=== PATIENT | female | born 1985 | race Caucasian/White ===

== ENCOUNTER → 2017-10-24 | Outpatient (CLI) | payer OTHER ==
[~2017-10-24] MED LIST: CETICHW4; PROM25TA PR; PRZCUNK
== END | disposition home or self-care (01) ==
LOC: C.PAPS 13:46
PROVIDERS: ATTEND Physician Assistant
DX: Z12.4 Encounter for screening for malignant neoplasm of cervix (principal)

== ENCOUNTER 2021-03-27 21:45 | Observation (INO) ==
[2021-03-27 23:48] LABS: Basophils # (auto) 0.01 K/uL (0-0.2); Basophils % (auto) 0.1 %; Eosinophils # (auto) 0.11 K/uL (0-0.5); Eosinophils % (auto) 0.6 %; Hematocrit (blood only) 38.9 % (37-47); Hemoglobin 13.6 g/dL (12.0-16.0); Immature Granulocytes # (auto) 0.03 K/uL (0.00-0.02); Immature Granulocytes % (auto) 0.2 %; Lymphocytes # (auto) 0.98 K/uL (1.2-3.4); Lymphocytes % (auto) 5.7 %; Mean Corpuscular Hemoglobin 33.3 pg (25-34); Mean Corpuscular Volume 95.1 fL (80-100); Mean Platelet Volume 10.9 fL (7.4-10.4); Monocytes # (auto) 0.81 K/uL (0.11-0.59); Monocytes % (auto) 4.7 %; Neutrophils # (auto) 15.39 K/uL (1.4-6.5); Neutrophils % (auto) 88.7 %; Platelet Count 199 K/uL (130-400); RDW Coefficient of Variation 13.2 % (11.5-14.5); RDW Standard Deviation 45.6 fL (36.4-46.3); Red Blood Count 4.09 M/uL (4.2-5.4); White Blood Count 17.33 K/uL (4.8-10.8)
[2021-03-27 23:53] LABS: Appearance Urine Clear (Clear); Bacteria Urine Automated Negative (Negative); Bilirubin Urine Negative (Negative); Blood Urine 1+ (Negative); Color Urine Yellow; Epithelial Cell Urine Auto 20-30 /lpf (0-5); Glucose Urine UA Negative (Negative); Ketones Urine Negative (Negative); Leukocyte Esterase Urine Negative (Negative); Nitrite Urine Negative (Negative); Protein Urine Negative (Negative); Specific Gravity Urine 1.019 (1.000-1.030); Urobilinogen Urine Negative (Negative)
[2021-03-28 00:07] LABS: Alanine Aminotransferase 16 U/L (12-78); Albumin Level 3.2 gm/dl (3.4-5.0); Aspartate Aminotransferase 12 U/L (15-37); BUN Creatinine Ratio 15.3 (10-20); Blood Urea Nitrogen 8 mg/dl (7-18); Calcium 8.2 mg/dl (8.5-10.1); Carbon Dioxide 26 mmol/L (21-32); Chloride 106 mmol/L (98-107); Est GFR (African American) 145.3 ml/min; Est GFR (Non-African American) 125.4 ml/min; Glucose 98 mg/dl (70-99); Potassium 3.6 mmol/L (3.5-5.1); Sodium 138 mmol/L (136-145)
[2021-03-28 00:10] LABS: Albumin Globulin Ratio 0.9 (0.9-2); Alkaline Phosphatase 50 U/L (45-117); Bilirubin,Total 0.3 mg/dl (0.2-1); Globulin 3.4 gm/dl (2.5-4.0); Total Protein 6.6 gm/dl (6.4-8.2)
[2021-03-28] MEDS ORDERED: LACTATED RINGER'S 1,000 ML IV PRN (01:59)
[2021-03-28] MEDS ORDERED: miSOPROStoL 200 MCG TAB PO SCH (02:00)
--- NOTE | 2021-03-28 02:05 | History & Physical Report ---
Date of Service March 28, 2021 Assessment & Plan (1) IUFD at less than 20 weeks of gestation: Plan: Options for management of 2nd trimester demise were reviewed and included expectant management, cytotec induction, or D&E. The risks of each of these options were discussed at length. She and her are electing to proceed with cytotec administration. 600mg cytotec po every 6 hours until delivery of fetus and placenta She understands that a D&E may still be necessary if all POC does not pass in a timely manner. She may have IV pain meds and epidural analgesia when appropriate. All questions were answered to her and her 's satisfaction at this time. History of Present Illness Chief Complaint: demise at 16 weeks Primary Care Provider: My Garber DO Patient is a 5 yo EDC [birth year] who presents with history of leaking large amounts of fluid followed by a moderate amount of dark blood. She had no symptoms prior to the leaking fluid but then had some vaginal achiness afterward. She presented to the ER for further evaluation. Ultrasound reveals a 16 week demise with no amniotic fluid present and possible LORY.Currently she is experiencing pelvic menstrual type cramping. She denies any fever or chills. No urinary symptoms. Up to this point, the had been progressing normally. cf DNA was done at was low risk female. Of note, she was receivign iron infusions for anemia due to menorrhagia. Hemglobin tonight was 13.6. Allergies Allergy/AdvReac Type Severity Reaction Status Date / Time shellfish derived Allergy Unknown Unknown Verified 03/28/21 02:07 No Known Drug Allergies Allergy Unknown Verified 03/28/21 02:07 morphine AdvReac Unknown paranoia Verified 03/28/21 02:07 Home Medications Medication Instructions Recorded Confirmed Type bupropion HCl 150 mg 24 hr tablet, 150 mg PO DAILY 11/08/19 03/08/21 History extended release cetirizine 10 mg tablet 10 mg PO DAILY 11/08/19 03/08/21 History iron infusion .ROUTE 01/31/21 03/08/21 History prenat.vits,hollie,[id number] 1 tab PO DAILY 01/31/21 03/08/21 History venlafaxine 37.5 mg tablet 37.5 mg PO DAILY 01/31/21 03/08/21 History Patient History Medical History Depression History of menorrhagia History of seizure History of varicella Hives Iron deficiency Surgical History History of tooth extraction Family History Grandfather (Maternal) Alcohol abuse Father Anxiety with depression Dyslipidemia Hypertension Diabetes Mother Anxiety with depression Anemia Uterine neoplasm, Onset Age: 38 Malignant melanoma of skin Pulmonary embolism Grandmother (Paternal) Osteoporosis Sister History of ovarian cyst Uncle Diabetes uncle Denies family history of Ovarian cancer Breast cancer Colorectal cancer Social History Smoking Status: Never smoker Preferred Language: Chinese marital status: marital status details: Salinas Ames(45) [phone] Current Living Situation: Spouse Current Living Situation Comment: lives with spouse, dog, birds current occupational status: employed 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 Feels Safe at Home: Yes Review of Systems All systems reviewed & are unremarkable except as noted in HPI & below Physical Exam Constitutional: WD/WN, vitals as above Respiratory: normal respiratory effort, lungs clear to auscultation Cardiovascular: RRR, no murmur, no edema Gastrointestinal (Abdomen): normal bowel sounds, soft, nontender, no hepatosplenomegaly (15 week fundus mildly tender to palpation) Psychiatric: A+Ox3, euthymic affect Genitourinary: OB Exam Abdomen: + fundal height (16 weeks-mildly tender) and + heart tones (absent) Manual OB Exam: + cervical dilation (closed), + cervical effacement (long) and + station (GIBSON starting to develop) Results & Data ([facility] [place]) Vital Signs (Past 12 Hours) Vital Signs Temp Pulse Pulse Resp BP BP Pulse Ox 03/28/21 01:14 93 H 115/69 100 03/27/21 23:53 89 89 110/63 100 03/27/21 21:59 98.4 F 89 19 117/69 100 Code Status & VTE Plan VTE Prophylaxis Plan VTE Prophylaxis will be ordered: No Coding Level of Care Code INT OBSERVATION CARE 50M LVL 2 Diagnoses IUFD at less than 20 weeks of gestation O02.1
[2021-03-28] MEDS: BUTORPHANOL TARTRATE 1 MG/ML VIAL IV PRN ×2 (03:33→08:06)
[2021-03-28] MEDS ORDERED: ONDANSETRON INJ 2 MG/ML 2 ML VIAL IV PRN (05:26)
[2021-03-28] MEDS ORDERED: ONDANSETRON INJ 2 MG/ML 2 ML VIAL ONE (05:29)
--- NOTE | 2021-03-28 06:26 | Emergency Department Note ---
History of Present Illness General Chief complaint: Vaginal Bleeding Stated complaint: 15 WKS , CRAMPING & BLEEDING Time Seen by Provider: 03/27/21 23:01 Source: patient Mode of arrival: ambulatory Limitations: no limitations History of Present Illness Maximum Pain Intensity: 4 This patient is a 35-year-old G1,P0 female who presents to the emergency department for evaluation of cramping and bleeding. The patient states that she is currently approximately 15 weeks . She states that she was driving home today when she felt a gush of fluid come out of her vagina. She was not sure if it was urine or discharge. She went to the bathroom and noticed some drops of pink blood. She states that 30 minutes later, she developed heavier bleeding with some cramping in the lower abdomen. She had had some back pain earlier in the day. She has been following with [facility] DIRECTOR OF VITAL STATISTICS and states that she has had an uneventful so far. She states the bleeding has slowed at this time. She rates her current discomfort a 6/10 and states the pain is similar to menstrual cramping. Patient denies prior pregnancies. Home Medications Medication Instructions Recorded Confirmed Type cetirizine 10 mg tablet 10 mg PO DAILY 11/08/19 03/31/21 History prenat.vits,hollie,[id number] 1 tab PO DAILY 01/31/21 03/31/21 History venlafaxine 37.5 mg tablet 37.5 mg PO DAILY 01/31/21 03/31/21 History bupropion HCl 150 mg 24 hr tablet, 75 mg PO QAM 03/28/21 03/31/21 History extended release (Wellbutrin XL) Allergies Allergy/AdvReac Type Severity Reaction Status Date / Time shellfish derived Allergy Unknown Unknown Verified 03/28/21 02:07 morphine AdvReac Unknown paranoia Verified 03/28/21 02:07 Past Med/Surg History Medical History Depression History of menorrhagia History of seizure History of varicella Hives Iron deficiency Surgical History History of tooth extraction Family History Grandfather (Maternal) Alcohol abuse Father Anxiety with depression Dyslipidemia Hypertension Diabetes Mother Anxiety with depression Anemia Uterine neoplasm, Onset Age: 38 Malignant melanoma of skin Pulmonary embolism Grandmother (Paternal) Osteoporosis Sister History of ovarian cyst Uncle Diabetes uncle Denies family history of Ovarian cancer Breast cancer Colorectal cancer Social History Smoking Status: Never smoker Second Hand Exposure: Yes ( smokes); Hx Alcohol Use: No Hx Substance Use: No Preferred Language: Irish Communication Ability: Effective Wrapper Opener Required: No Beliefs That Will Affect Care: None marital status: marital status details: Salinas Ames(45) [phone] Current Living Situation: Spouse Current Living Situation Comment: Lives with and 1 dog current occupational status: employed current occupation: [employer] teacher Feels Safe at Home: Yes Assistive Devices: None Review of Systems A total of 10 systems reviewed and were otherwise negative Physical Exam Vital Signs Vital Signs - 24 hr 03/27/21 21:59 03/27/21 23:53 03/28/21 01:14 Temperature 36.9 C Temperature Source Temporal Artery Scan Pulse Rate 89 89 Pulse Rate [Finger] 89 93 H Pulse Rhythm Regular Respiratory Rate 19 Respiratory Effort / Characteristics Non-Labored Spontaneous Respiratory Depth Normal Blood Pressure 117/69 Blood Pressure [Right Arm] 110/63 115/69 Blood Pressure Mean 85 Blood Pressure Mean [Right Arm] 78 84 Blood Pressure Position [Right Arm] Lying Pulse Oximetry 100 100 100 Oxygen Delivery Method Room Air Room Air Room Air Sepsis Recent Fever Within 48 Hours No Sepsis New/Unexplained Change in Mental Status N/A Sepsis Action Taken by Nursing No Action Required VITALS: Vitals are noted on the nurse's note and reviewed by myself. GENERAL: This is a 35-year-old female, in no acute distress, well-developed well-nourished. SKIN: The skin was without rashes. EARS: External auditory canals clear, tympanic membranes pearly roche without erythema or effusion bilaterally. EYES: Pupils equal round and reactive to light and accommodation. NOSE: Patent, turbinates without inflammation or discharge. MOUTH: Mucous membranes moist. Tonsils are not enlarged. Pharynx without e rythema or exudate. NECK: Supple without nuchal rigidity. No lymphadenopathy. HEART: Regular rate and rhythm without murmurs gallops or rubs. LUNGS: Clear to auscultation bilaterally without wheezes, rales or rhonchi. ABDOMEN: Positive bowel sounds x 4. Soft, mild tenderness to palpation across lower abdomen. No guarding or rebound tenderness. NEURO: Patient was alert and oriented to person place and time. Course Consultations Consultation #1: Dr. Caron RAJAN DIRECTOR OF VITAL STATISTICS Administered Medications Discontinued Medications Bupropion HCl (Bupropion Hcl 75 Mg Tablet) 75 mg PO BID LORY Stop: 04/27/21 08:59 Last Admin: 03/28/21 09:57 Dose: 75 mg Documented by: [id number] Butorphanol Tartrate (Butorphanol Tartrate 1 Mg/Ml Vial) 1 mg IV Q2HWA PRN PRN Reason: Pain Stop: 04/27/21 01:58 Last Admin: 03/28/21 08:06 Dose: 1 mg Documented by: [id number] Cosigned by: [id number] Admin: 03/28/21 03:33 Dose: 1 mg Documented by: [id number] Cosigned by: [id number] Butorphanol Tartrate (Butorphanol Tartrate 1 Mg/Ml Vial) 1 mg IV Q4H PRN PRN Reason: Pain Stop: 04/27/21 11:12 Last Admin: 03/28/21 11:27 Dose: 1 mg Documented by: [id number] Cosigned by: [id number] Butorphanol Tartrate (Butorphanol Tartrate 1 Mg/Ml Vial) Confirm Administered Dose 1 mg .ROUTE .STK-MED ONE Stop: 03/28/21 11:17 Last Admin: 03/28/21 11:44 Dose: Not Given Documented by: [id number] Cetirizine HCl (Cetirizine Hcl 10 Mg Tablet) 10 mg PO DAILY LORY Stop: 04/27/21 09:52 Last Admin: 03/28/21 11:19 Dose: 10 mg Documented by: [id number] Lactated Ringer's (Lr) 1,000 mls @ 125 mls/hr IV .Q8H PRN; Protocol PRN Reason: L&D Protocol Stop: 04/27/21 01:58 Last Admin: 03/28/21 02:55 Dose: 125 mls/hr Documented by: [id number] Ibuprofen (Ibuprofen 600 Mg Tab) Confirm Administered Dose 600 mg PO .STK-MED O NE Stop: 03/28/21 09:53 Last Admin: 03/28/21 09:54 Dose: 600 mg Documented by: [id number] Misoprostol (Misoprostol 200 Mcg Tab) 600 mcg PO Q6H [facility] Stop: 04/27/21 01:59 Last Admin: 03/28/21 03:29 Dose: 600 mcg Documented by: [id number] Misoprostol (Misoprostol 200 Mcg Tab) 600 mcg PO NOW STA Stop: 03/28/21 11:14 Last Admin: 03/28/21 11:19 Dose: 600 mcg Documented by: [id number] Misoprostol (Misoprostol 200 Mcg Tab) Confirm Administered Dose 600 mcg .ROUTE .STK-MED ONE Stop: 03/28/21 11:18 Last Admin: 03/28/21 11:44 Dose: Not Given Documented by: [id number] Ondansetron HCl (Ondansetron Inj 2 Mg/Ml 2 Ml Vial) 4 mg IV Q6H PRN PRN Reason: nausea Stop: 04/27/21 05:29 Last Admin: 03/28/21 05:31 Dose: 4 mg Documented by: [id number] Ondansetron HCl (Ondansetron Inj 2 Mg/Ml 2 Ml Vial) Confirm Administered Dose 4 mg .ROUTE .STK-MED ONE Stop: 03/28/21 05:30 Last Admin: 03/28/21 15:34 Dose: Not Given Documented by: [id number] Oxytocin (Oxytocin 30 Units/500ml Nss) Confirm Administered Dose 30 units .ROUTE .STK-MED ONE Stop: 03/28/21 09:25 Last Admin: 03/28/21 15:34 Dose: Not Given Documented by: [id number] Venlafaxine HCl (Venlafaxine Hcl Xr 37.5 Mg Capxr) 37.5 mg PO DAILY [facility] Stop: 04/27/21 08:59 Last Admin: 03/28/21 09:56 Dose: 37.5 mg Documented by: [id number] Medical Decision Making Differential Diagnosis Differential diagnosis includes spontaneous , threatened , subchorionic hematoma, ectopic , implantation bleeding, placenta previa, placental abruption, malignancy/mass, bleeding disorder, among others. Home Medications Current Medication List: was personally reviewed by me Laboratory Data Attestation: I reviewed the patient's lab results. Result diagrams: 03/28/21 15:51 03/27/21 23:28 Lab Results 07/18/21 07/18/21 07/18/21 Range/Units 23:28 23:28 23:37 WBC 17.33 H (4.8-10.8) K/uL RBC 4.09 L (4.2-5.4) M/uL Hgb 13.6 (12.0-16.0) g/dL Hct 38.9 (37-47) % MCV 95.1 (80-100) fL MCH 33.3 (25-34) pg MCHC 35.0 (32-36) g/dL RDW Std Deviation 45.6 (36.4-46.3) fL RDW Coeff of Kieran 13.2 (11.5-14.5) % Plt Count 199 (130-400) K/uL MPV 10.9 H (7.4-10.4) fL Immature Gran % (Auto) 0.2 % Neut % (Auto) 88.7 % Lymph % (Auto) 5.7 % [place] % (Auto) 4.7 % Eos % (Auto) 0.6 % Baso % (Auto) 0.1 % Neut # (Auto) 15.39 H (1.4-6.5) K/uL Lymph # (Auto) 0.98 L (1.2-3.4) K/uL [place] # (Auto) 0.81 H (0.11-0.59) K/uL Eos # (Auto) 0.11 (0-0.5) K/uL Baso # (Auto) 0.01 (0-0.2) K/uL Immature Gran # (Auto) 0.03 H (0.00-0.02) K/uL Sodium 138 (136-145) mmol/L Potassium 3.6 (3.5-5.1) mmol/L Chloride 106 (98-107) mmol/L Carbon Dioxide 26 (21-32) mmol/L Anion Gap 6.0 (3-11) BUN 8 (7-18) mg/dl Creatinine 0.50 L (0.6-1.2) mg/dl Est Cr Clr Drug Dosing Not Reportable Est GFR ( Amer) 145.3 ml/min Est GFR (Non-Af Amer) 125.4 ml/min BUN/Creatinine Ratio 15.3 (10-20) Glucose 98 (70-99) mg/dl Calcium 8.2 L (8.5-10.1) mg/dl Total Bilirubin 0.3 (0.2-1) mg/dl AST 12 L (15-37) U/L ALT 16 (12-78) U/L Alkaline Phosphatase 50 (45-117) U/L Total Protein 6.6 (6.4-8.2) gm/dl Albumin 3.2 L (3.4-5.0) gm/dl Globulin 3.4 (2.5-4.0) gm/dl Albumin/Globulin Ratio 0.9 (0.9-2) Urine Color Yellow Urine Appearance Clear (Clear) Urine pH 5.0 (4.5-7.5) Ur Specific [place] 1.019 (1.000-1.030) Urine Protein Negative (Negative) Urine Glucose (UA) Negative (Negative) Urine Ketones Negative (Negative) Urine Blood 1+ H (Negative) Urine Nitrite Negative (Negative) Urine Bilirubin Negative (Negative) Urine Urobilinogen Negative (Negative) Ur Leukocyte Esterase Negative (Negative) Urine WBC (Auto) 1-5 (0-5) /hpf Urine RBC (Auto) 5-10 H (0-4) /hpf U Hyaline Cast (Auto) 5-10 H (0-5) /lpf U Epithel Cells (Auto) 20-30 H (0-5) /lpf Urine Bacteria (Auto) Negative (Negative) Blood Type 03/27/21 Range/Units 23:50 WBC (4.8-10.8) K/uL RBC (4.2-5.4) M/uL Hgb (12.0-16.0) g/dL Hct (37-47) % MCV (80-100) fL MCH (25-34) pg MCHC (32-36) g/dL RDW Std Deviation (36.4-46.3) fL RDW Coeff of Kieran (11.5-14.5) % Plt Count (130-400) K/uL MPV (7.4-10.4) fL Immature Gran % (Auto) % Neut % (Auto) % Lymph % (Auto) % [place] % (Auto) % Eos % (Auto) % Baso % (Auto) % Neut # (Auto) (1.4-6.5) K/uL Lymph # (Auto) (1.2-3.4) K/uL [place] # (Auto) (0.11-0.59) K/uL Eos # (Auto) (0-0.5) K/uL Baso # (Auto) (0-0.2) K/uL Immature Gran # (Auto) (0.00-0.02) K/uL Sodium (136-145) mmol/L Potassium (3.5-5.1) mmol/L Chloride (98-107) mmol/L Carbon Dioxide (21-32) mmol/L Anion Gap (3-11) BUN (7-18) mg/dl Creatinine (0.6-1.2) mg/dl Est Cr Clr Drug Dosing Est GFR ( Amer) ml/min Est GFR (Non-Af Amer) ml/min BUN/Creatinine Ratio (10-20) Glucose (70-99) mg/dl Calcium (8.5-10.1) mg/dl Total Bilirubin (0.2-1) mg/dl AST (15-37) U/L ALT (12-78) U/L Alkaline Phosphatase (45-117) U/L Total Protein (6.4-8.2) gm/dl Albumin (3.4-5.0) gm/dl Globulin (2.5-4.0) gm/dl Albumin/Globulin Ratio (0.9-2) Urine Color Urine Appearance (Clear) Urine pH (4.5-7.5) Ur Specific [place] (1.000-1.030) Urine Protein (Negative) Urine Glucose (UA) (Negative) Urine Ketones (Negative) Urine Blood (Negative) Urine Nitrite (Negative) Urine Bilirubin (Negative) Urine Urobilinogen (Negative) Ur Leukocyte Esterase (Negative) Urine WBC (Auto) (0-5) /hpf Urine RBC (Auto) (0-4) /hpf U Hyaline Cast (Auto) (0-5) /lpf U Epithel Cells (Auto) (0-5) /lpf Urine Bacteria (Auto) (Negative) Blood Type A Positive Imaging Data Attestation: I personally reviewed and interpreted this imaging study as follows: Radiologist's Impression: US OB 2nd TRIMESTER: Single intrauterine gestation without heart tones consistent with demise. Estimated gestational age 15 weeks 6 days. The cervix is open. Please note there is a possible abruption versus subchorionic hemorrhage. Radiologist: Stephanie Sanz MD MDM Narrative This patient is a 35-year-old female who presents to the emergency department for evaluation of vaginal bleeding and a 15-week . Patient hemodynamically stable, she did have some cramping but no significant pain. An ultrasound showed demise with a possible placental abruption. I did inform the patient of these results. I spoke with the on-call DIRECTOR OF VITAL STATISTICS, Dr. Reardon, who admitted the patient to the OB service for further care. Impression & Plan demise, less than 22 weeks Discharge Plan Visit Data Chief Complaint: Vaginal Bleeding Stated Complaint: 15 WKS , CRAMPING & BLEEDING ED Provider: Emerson Cantu ED Midlevel Provider: Sherlyn Pichardo Discharge Problem: demise, less than 22 weeks Patient Disposition: Admitted As Inpatient Discharge Instructions Interventions: ED Discharge Assessment Last Done: 03/28/21 02:11
[2021-03-28] MEDS ORDERED: buPROPion HCl 75 MG TABLET PO SCH (09:00)
[2021-03-28] MEDS ORDERED: VENLAFAXINE HCL XR 37.5 MG CAPXR PO SCH (09:00)
[2021-03-28] MEDS ORDERED: buPROPion XL 150 MG TABCR PO SCH ×2 (09:00→09:53)
[2021-03-28] MEDS ORDERED: OXYTOCIN 30 UNITS/500ML NSS ONE (09:24)
--- NOTE | 2021-03-28 09:39 | Delivery Summary ---
Vaginal Delivery Summary Date of Service March 28, 2021 Vaginal Delivery Summary Vaginal Delivery Summary: Pre-delivery diagnoses: 35yo @ 15 11/14, IUFD Post-delivery diagnoses: same Procedure: spontaneous vaginal delivery Surgeon: Denae Hooks DO Complications: none Findings: Nonviable . No movement. Exterior intestines - gastroschisis? Placenta appears intact. Estimated blood loss: 100ml Description of delivery: I was called to the patient's room, as patient had just felt sudden pressure and the baby had delivered into the bed. I walked in to find the baby placed on the bed, and I placed umbilical cord clamps and cut the cord. A few minutes later, the patient again felt increased pressure. Gentle vaginal exam revealed placenta working its way through cervix and mostly in the vagina. Gentle traction on the placenta allowed it to deliver. It appeared intact. No further bleeding from the vagina. Pitocin IV given to ensure continued hemostasis. Perineum inspected and no obvious lacerations. I discussed the above findings with patient and FOB. Offered gross exam in pathology, autopsy, genetic testing. Patient and FOB would like to send baby for gross examination at pathology. The mother is recovering in stable and good condition in the room. Denae Hooks DO [facility] [place]
--- NOTE | 2021-03-28 09:42 | Ultrasound Report ---
ULTRASOUND LIMITED CLINICAL HISTORY: Vaginal bleeding. 15 weeks . COMPARISON STUDY: No priors. FINDINGS: Real-time grayscale and color Doppler sonography of the pelvis is performed to evaluate the gravid uterus. There is a single intrauterine gestation identified. No cardiac activity is identifie d. There is oligohydramnios, with a small pocket of amniotic fluid measuring 1.7 cm. The cervix appea rs open and measures 3.3 cm in length. The placenta is anterior. A complex heterogeneous fluid collec tion extending posterior to the placenta measures approximately 7.5 x 4.5 x 3.5 cm. The head circumfe rence measures 11.01 cm, corresponding to estimated age of 15 weeks 2 days. IMPRESSION: 1. There is a single uterine gestation with an estimated age of 15 weeks 2 days by head circumference measurement. 2. No cardiac activity is identified indicating demise. 3. Oligohydramnios. 4. There is a complex nonvascular fluid collection within the superior uterus extending posterior to the placenta. This likely represents blood products. Subchronic hemorrhage versus abruption could hav e this appearance and clinical correlation will be required. Dictated: 03/28/2021 9:07 AM Transcribed: 03/28/2021 9:28 AM Brisa [id number] [email or web address] Electronically signed by: Russ Gamez M.D. 03/28/2021 9:40 AM
[2021-03-28] MEDS ORDERED: IBUPROFEN 600 MG TAB PO ONE (09:52)
[2021-03-28] MEDS ORDERED: OXYTOCIN 30 UNITS/500 ML BAG IV PRN (09:53)
[2021-03-28] MEDS ORDERED: HYDROCORTISONE ACETATE 25 MG SUPP PR PRN (09:53)
[2021-03-28] MEDS ORDERED: CETIRIZINE HCL 10 MG TABLET PO SCH (09:53)
[2021-03-28] MEDS ORDERED: SUPERCREAM 0.870% 15 GM JAR EXT PRN (09:53)
[2021-03-28] MEDS ORDERED: DIPHTHERIA/TETANUS/PERTUSSIS 0.5 ML SYR/VIAL IM ONE (09:53)
[2021-03-28] MEDS ORDERED: IBUPROFEN 600 MG TAB PO PRN (09:53)
[2021-03-28] MEDS ORDERED: oxyCODONE/ACETAMINOPHEN 5mg/325mg TAB PO PRN (09:53)
[2021-03-28] MEDS ORDERED: ACETAMINOPHEN 325 MG TAB PO PRN (09:53)
[2021-03-28] MEDS ORDERED: bisacodyL 10 MG SUPP PR PRN (09:53)
[2021-03-28] MEDS ORDERED: BENZOCAINE 20% AER SPR 82.5 GM CAN EXT PRN (09:53)
[2021-03-28] MEDS ORDERED: BUTORPHANOL TARTRATE 1 MG/ML VIAL IV PRN (11:13)
[2021-03-28] MEDS ORDERED: miSOPROStoL 200 MCG TAB PO STA (11:13)
[2021-03-28] MEDS ORDERED: BUTORPHANOL TARTRATE 1 MG/ML VIAL ONE (11:16)
[2021-03-28] MEDS ORDERED: miSOPROStoL 200 MCG TAB ONE (11:17)
--- NOTE | 2021-03-28 11:18 | Obstetrical Progress Note ---
Date of Service March 28, 2021 Assessment & Plan Admission and Anticipated Discharge Date Admission Date: March 28, 2021 Subjective Called to room by RN. During routine RN exam, patient had passed another mass of tissue - looks placental. I gently teased this out of vagina. EBL during this procedure approx 150cc in clots. No appearance of active bleeding after manual extraction of tissue/clots from vagina. Cervix during exam was approx 1cm dilated. Some clot in os, no further palpable tissue. Will give patient an additional dose of cytotec to encourage continued contraction of uterus for both hemostasis and to express any further clot/tissue. Discussed that if patient has any further bleeding or it appears that there is further tissue expressing, may need to move to D&C. Patient would like to avoid surgery if at all possible. I think, given stable vitals and no active bleeding per vagina, that this is reasonable to continue to monitor. In addition to PO cytotec, will also give 1mg IV stadol. Results & Data ([facility]) Vital Signs (Past 12 Hours) Vital Signs Temp Pulse Pulse Resp BP BP Pulse Ox 03/28/21 11:07 85 108/64 03/28/21 10:53 69 104/57 L 03/28/21 10:38 78 106/63 03/28/21 10:23 81 101/57 L 03/28/21 10:08 82 113/66 03/28/21 09:53 73 107/65 03/28/21 09:38 74 108/64 03/28/21 09:23 78 101/60 03/28/21 09:21 86 100/56 L 03/28/21 08:15 85 119/68 03/28/21 07:13 36.8 C 87 20 111/57 L 03/28/21 05:35 87 102/55 L 03/28/21 05:00 36.8 C 18 03/28/21 03:02 37.7 C H 93 H 16 117/59 L 03/28/21 02:49 93 H 117/59 L 03/28/21 02:05 97 H 91/61 L 100 03/28/21 01:14 93 H 115/69 100 03/27/21 23:53 89 89 110/63 100 PG Care Time/CCT Total # of Minutes Spent Total Time Spent with Patient: Total time spent is greater than 50% in coordination of care (as documented) at patient's floor/unit and/or counseling patient: Coding Level of Care Code None
[2021-03-28 16:11] LABS: Hematocrit (blood only) 35.2 % (37-47); Mean Corpuscular Hemoglobin 32.3 pg (25-34); Mean Corpuscular Volume 94.6 fL (80-100); Mean Platelet Volume 11.4 fL (7.4-10.4); Platelet Count 193 K/uL (130-400); RDW Coefficient of Variation 13.5 % (11.5-14.5); RDW Standard Deviation 46.6 fL (36.4-46.3); Red Blood Count 3.72 M/uL (4.2-5.4); White Blood Count 13.43 K/uL (4.8-10.8)
[2021-03-28 16:19] LABS: Mean Corpuscular Hgb Conc 34.1 g/dL (32-36)
[2021-03-28] MEDS ORDERED: DOCUSATE SODIUM 100 MG CAP PO SCH (21:00)
[2021-03-29] MEDS ORDERED: buPROPion HCl 75 MG TABLET PO SCH (09:00)
[2021-03-29] MEDS ORDERED: bisacodyL 5 MG TABEC PO SCH (20:00)
--- NOTE | 2021-04-04 08:54 | Discharge Summary ---
Date of Service April 04, 2021 Admission HPI Per Admitting Provider Patient is a 5 yo EDC [birth year] who presents with history of leaking large amounts of fluid followed by a moderate amount of dark blood. She had no symptoms prior to the leaking fluid but then had some vaginal achiness afterward. She presented to the ER for further evaluation. Ultrasound reveals a 16 week demise with no amniotic fluid present and possible LORY.Currently she is experiencing pelvic menstrual type cramping. She denies any fever or chills. No urinary symptoms. Up to this point, the had been progressing normally. cf DNA was done at was low risk female. Of note, she was receivign iron infusions for anemia due to menorrhagia. Hemglobin tonight was 13.6. Discharge Data Consultations 03/28/21 01:29 Consult Obstetrics Stat 03/28/21 02:04 Consult Anesthesiology Stat Procedures Performed spontaneous vaginal delivery Hospital Course (1) IUFD at less than 20 weeks of gestation: Options for management of 2nd trimester demise were reviewed and included expectant management, cytotec induction, or D&E. The risks of each of these options were discussed at length. She and her are electing to proceed with cytotec administration. 600mg cytotec po every 6 hours until delivery of fetus and placenta She understands that a D&E may still be necessary if all POC does not pass in a timely manner. She may have IV pain meds and epidural analgesia when appropriate. All questions were answered to her and her 's satisfaction at this time. Pt was admitted, induced with cytotec, delivered, discharged home. Followup in office in 2 weeks. Coding Level of Care Code None Diagnoses IUFD at less than 20 weeks of gestation O02.1
== END 2021-03-28 19:00 | disposition home or self-care (01) ==
LOC: ED 21:45 → 4S1 03-28 01:59 → INTOOBSV 03-28 01:59 → 4S1 03-28 02:11

== ENCOUNTER 2023-11-14 12:23 | Inpatient (IN) ==
--- NOTE | 2023-11-14 12:58 | Emergency Department Note ---
Impression & Plan Depression with anxiety ED Provider Note NAME: EVA PAYNE AGE: 37 SEX: F : 1985 ARRIVES VIA: Walk-In INFORMANT: Patient, the patient's family ED PROVIDER(S): Gus Eagle DO CHIEF COMPLAINT: Mental health evaluation HPI: The patient is a 37-year-old female who presented to the emergency department for mental health evaluation. The patient has been under significant stressors recently. She has been having her own issues with anxiety and depression. She is been having trouble getting and has had miscarriages over the last year. Her significant other recently lost his job because of taking time off for medical reason. The patient has been having some changes to her outpatient medication regimen. She is also been having problems with anemia and getting iron transfusions. Patient denies having any vaginal bleeding. She did have a history of heavy bleeding at 1 time but she had polyps removed from her uterus and now she no longer experiences this. The patient denies having any fever or cough. The patient denies any recent trauma. She denies any suicidal ideation. ROS: See above HPI for pertinent positives & negatives. A total of 10 systems reviewed and were otherwise negative. PAST MEDICAL HISTORY: See Below PAST SURGICAL HISTORY: See Below FAMILY HISTORY: See Below SOCIAL HISTORY: See Below HOME MEDICATIONS: See Below ALLERGIES: See Below VITALS: See Below PHYSICAL EXAMINATION: GENERAL: The patient is awake and alert. She is guarded. EYES: The conjunctivae are clear. The pupils are round and reactive. EARS, NOSE, MOUTH AND THROAT: The nose is without any evidence of any deformity. NECK: The neck is nontender and supple. RESPIRATORY: Normal respiratory effort is noted there is no evidence of wheezing rhonchi or rales CARDIOVASCULAR: Regular rate and rhythm noted there no murmurs rubs or gallops normal S1 normal S2. GASTROINTESTINAL: The abdomen is soft. Abdomen is nontender. MUSCULOSKELETAL/EXTREMITIES: There is no evidence of gross deformity full range of motion is noted in the hips and shoulders. SKIN: There is no obvious evidence of any rash. There are no petechiae, pallor or cyanosis noted. NEUROLOGIC: Patient is awake alert and oriented x3 strength is symmetric patellar reflexes are 2+ bilaterally PSYCH: The patient makes poor eye contact mostly evaluation. Her affect is flat. She is currently denying any suicidal ideation. MEDICAL DECISION MAKING: The patient is a 37-year-old female who presented to the emergency department for a mental health evaluation. The patient has a history of mental health issues in the past. She has had significant stressors recently. She presented to the emergency department for further evaluation. I discussed patient's laboratory results with her. She was medically cleared in the emergency department. I discussed the [facility]'s [facility]. She was felt to be a good candidate for inpatient management. She was referred to 3 S. and ultimately was excepted on 3 S. The patient was agreeable to inpatient management. The 302 was signed by myself. Triage Nursing notes reviewed. Prior medical records reviewed Vital Signs: reviewed and remarkable for no significant abnormalities Differential diagnosis: Mood disorder, infection, hypoglycemia, electrolyte abnormalities, cardiac sources, intracerebral event, toxicologic, trauma, neurologic, as well as other pathologies. ER treatment provided: See below Diagnostics interpreted by me: ECG: none Laboratory studies: As stated above and show below. Imaging studies: See below. Radiographic imaging was reviewed by myself Consultation(s): I discussed the patient's laboratory and radiographic studies with the [facility]. Past Med/Surg History Medical History Bruxism Anxiety and depression History of febrile seizure During childhood- only one episode- no further issues since that time Iron deficiency hx iron infusions History of menorrhagia Surgical History S/P dilation and curettage History of wisdom tooth extraction Family History Grandfather (Maternal) Alcohol abuse Father Anxiety with depression Dyslipidemia Hypertension Diabetes Mother Anxiety with depression Anemia Uterine neoplasm, Onset Age: 38 Malignant melanoma of skin Pulmonary embolism Grandmother (Paternal) Osteoporosis Sister History of ovarian cyst Uncle Diabetes uncle Denies family history of Ovarian cancer Breast cancer Colorectal cancer Social History Smoking Status: Never smoker Second Hand Exposure: Yes ( smokes); Do You Dip or Chew Tobacco: No; Hx Alcohol Use: No Hx Substance Use: No Preferred Language: Iraqi Communication Ability: Effective Clinical Ob Required: No Beliefs That Will Affect Care: None marital status: marital status details: [place]es(45) [phone] Current Living Situation: Spouse Current Living Situation Comment: Lives with and 1 dog current occupational status: employed 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 Feels Safe at Home: Yes Gender Identity: Female Assistive Devices: None Allergies Allergies Allergy/AdvReac Type Severity Reaction Status Date / Time shellfish derived Allergy Unknown Unknown Verified 08/15/23 10:32 morphine AdvReac Unknown paranoia Verified 08/15/23 10:32 Home Meds Home Medications Medication Instructions Recorded Confirmed venlafaxine 75 mg capsule,extended 150 mg PO QAM 04/05/22 07/30/23 release 24 hr (Effexor XR) cetirizine 10 mg capsule (Zyrtec) 10 mg PO DAILY PRN Allergy Symptoms 10/13/22 07/30/23 prenat.vits,hollie,bqg-uwxt-fdyzg 1 tab PO QAM 10/13/22 07/30/23 folic acid 1 mg tablet 1 mg PO QAM 02/18/23 07/30/23 ferrous sulfate 325 mg (65 mg 325 mg PO QAM 07/23/23 07/30/23 iron) tablet (iron) clomiphene citrate 50 mg tablet 50 mg PO DAILY 08/15/23 08/15/23 (Clomid) Results & Data (ED) Vital Signs Vital Signs - 24 hr 11/14/23 12:32 Temperature 36.6 C Temperature Source Temporal Artery Scan Pulse Rate 105 H Pulse Rhythm Regular Pulse Strength Normal Respiratory Rate 20 Respiratory Effort / Characteristics Non-Labored Spontaneous Respiratory Depth Normal Blood Pressure 107/73 Blood Pressure Mean 84 Blood Pressure Position Sitting Pulse Oximetry 97 Oxygen Delivery Method Room Air Sepsis Recent Fever Within 48 Hours No Sepsis New/Unexplained Change in Mental Status N/A Sepsis Action Taken by Nursing No Action Required Home Medications Current Medication List: was personally reviewed by me Laboratory Data Attestation: I reviewed the patient's lab results. 11/14/23 13:16 11/14/23 13:16 Lab Results 11/14/23 11/14/23 Range/Units 12:44 13:16 WBC 7.00 (4.8-10.8) K/ul RBC 4.66 (4.20-5.40) M/uL Hgb 14.4 (12.0-16.0) g/dl Hct 42.6 (37.0-47.0) % MCV 91.4 (80.0-100.0) fL MCH 30.9 (25.0-34.0) pg MCHC 33.8 (32.0-36.0) g/dL RDW Std Deviation 44.7 (36.4-46.3) fL RDW Coeff of Kieran 13.3 (11.5-14.5) % Plt Count 374 (130-400) K/uL MPV 12.0 (9.4-12.4) fL Immature Gran % (Auto) 0.3 % Neut % (Auto) 69.9 % Lymph % (Auto) 20.9 % Hughes % (Auto) 8.0 % Eos % (Auto) 0.6 % Baso % (Auto) 0.3 % Neut # (Auto) 4.90 (1.40-6.50) K/uL Lymph # (Auto) 1.46 (1.20-3.40) K/uL Hughes # (Auto) 0.56 (0.11-0.59) K/uL Eos # (Auto) 0.04 (0.00-0.50) K/uL Baso # (Auto) 0.02 (0.00-0.20) K/uL Immature Gran # (Auto) 0.02 (0.01-0.20) K/uL Sodium 139 (136-145) mmol/L Potassium 3.7 (3.5-5.1) mmol/L Chloride 103 (98-107) mmol/L Carbon Dioxide 29 (21-32) mmol/L Anion Gap 7 (3-11) BUN 11 (6-23) mg/dl Creatinine 0.75 (0.6-1.2) mg/dl Est Cr Clr Drug Dosing 99.9 ml/min Est GFR ( Amer) 118.0 ml/min Est GFR (Non-Af Amer) 101.8 ml/min BUN/Creatinine Ratio 14.7 (10-20) Glucose 89 (70-99(Fasting)) mg/dl Calcium 9.6 (8.6-10.3) mg/dl Total Bilirubin 0.3 (0.2-1.0) mg/dl AST 14 (13-39) U/L ALT 10 (7-52) U/L Alkaline Phosphatase 61 (34-104) U/L Total Protein 7.7 (6.0-8.3) gm/dl Albumin 4.8 (3.4-5.0) gm/dl Globulin 2.9 (2.5-4.0) gm/dl Albumin/Globulin Ratio 1.7 (0.9-2) TSH 1.936 (0.300-4.500) uIu/ml HCG, Qual Negative (Negative) Urine Color Yellow Urine Appearance Clear (Clear) Urine pH 6.0 (4.5-7.5) Ur Specific [place] 1.008 (1.000-1.030) Urine Protein Negative (Negative) Urine Glucose (UA) Negative (Negative) Urine Ketones Negative (Negative) Urine Blood Negative (Negative) Urine Nitrite Negative (Negative) Urine Bilirubin Negative (Negative) Urine Urobilinogen Negative (Negative) Ur Leukocyte Esterase Negative (Negative) Salicylates < 3.0 L (3.0-30) mg/dl Urine Opiates Screen Neg (Neg) Ur Methadone, Qual Neg (Neg) Acetaminophen < 3 L (10-30) ug/ml Urine Barbiturates Neg (Neg) Ur Phencyclidine (PCP) Neg (Neg) U Amphetamin/Meth Scrn Neg (Neg) MDMA (Ecstasy) Screen Neg (Neg) U Benzodiazepines Scrn Neg (Neg) Ur Cocaine Metabolite Neg (Neg) U Marijuana (THC) Screen Neg (Neg) Ethyl Alcohol mg/dL < 10.0 (<10.0) mg/dl Imaging Data Attestation: I personally reviewed and interpreted this imaging study as follows: My Impression: CT of the brain was obtained in the emergency department. My interpretation is no intracranial hemorrhage or mass effect, final report below Radiologist's Impression: Head CT 11/14/23 12:53 CT head/brain wo con CLINICAL HISTORY: requewsted by family, worried about tumor Technique: Contiguous axial CT images of the head were acquired from the base of the skull to the vertex without intravenous contrast administration. Images were viewed in brain, subdural and bone windows. Automated dose lowering techniques and/or adjustment according to patient size were utilized for this exam. Comparison: Comparison is made to CT head 09/23/2008 Findings: The ventricles, basal cisterns, and cerebral sulci are normal. There is no acute intracranial hemorrhage or evidence of acute territorial infarction. Neither mass effect, shift of the midline structures, nor abnormal extra-axial fluid collections are shown. Thickening of the right maxillary and sphenoid sinus mucous membrane. The orbits appear normal. There are no acute fractures of the calvaria or scalp swelling. Impression: No acute intracranial hemorrhage, no evidence of acute territorial infarction or other acute intracranial disease process. In particular, no evidence of intracranial mass. ACT 112: Negative or not required by law. Electronically signed by: Álvaro Valverde M.D. 11/14/2023 1:58 PM Discharge Plan Visit Data Chief Complaint: Mental Health Evaluation Stated Complaint: UNABLE TO FUNCTION ED Provider: Gus Eagle Discharge Problem: Depression with anxiety Patient Disposition: Admitted As Inpatient Discharge Instructions Interventions: ED Discharge Assessment Last Done: 11/14/23 17:10
[2023-11-14 13:32] LABS: Appearance Urine Clear (Clear); Bilirubin Urine Negative (Negative); Blood Urine Negative (Negative); Color Urine Yellow; Glucose Urine UA Negative (Negative); Ketones Urine Negative (Negative); Leukocyte Esterase Urine Negative (Negative); Nitrite Urine Negative (Negative); Protein Urine Negative (Negative); Specific Gravity Urine 1.008 (1.000-1.030); Urobilinogen Urine Negative (Negative)
[2023-11-14 13:35] LABS: Basophils # (auto) 0.02 K/uL (0.00-0.20); Basophils % (auto) 0.3 %; Eosinophils # (auto) 0.04 K/uL (0.00-0.50); Eosinophils % (auto) 0.6 %; Hematocrit (blood only) 42.6 % (37.0-47.0); Hemoglobin 14.4 g/dl (12.0-16.0); Immature Granulocytes # (auto) 0.02 K/uL (0.01-0.20); Immature Granulocytes % (auto) 0.3 %; Lymphocytes # (auto) 1.46 K/uL (1.20-3.40); Lymphocytes % (auto) 20.9 %; Mean Corpuscular Hemoglobin 30.9 pg (25.0-34.0); Mean Corpuscular Hgb Conc 33.8 g/dL (32.0-36.0); Mean Corpuscular Volume 91.4 fL (80.0-100.0); Monocytes # (auto) 0.56 K/uL (0.11-0.59); Neutrophils % (auto) 69.9 %; Platelet Count 374 K/uL (130-400); RDW Coefficient of Variation 13.3 % (11.5-14.5); RDW Standard Deviation 44.7 fL (36.4-46.3); Red Blood Count 4.66 M/uL (4.20-5.40)
[2023-11-14 13:48] LABS: Pregnancy Test, Serum Negative (Negative)
[2023-11-14 13:51] LABS: Acetaminophen < 3 ug/ml (10-30); Salicylate < 3.0 mg/dl (3.0-30)
[2023-11-14 13:59] LABS: Amphetamines+Metham, Urine Neg (Neg); Barbiturates, Urine Neg (Neg); Benzodiazepine, Urine Neg (Neg); Cocaine, Urine Neg (Neg); MDMA (Ecstacy), Urine Neg (Neg); Marijuana, Urine Neg (Neg); Methadone, Urine Neg (Neg); Opiate, Urine Neg (Neg); Phencyclidine, Urine Neg (Neg)
--- NOTE | 2023-11-14 13:59 | CT Scan Report ---
CT head/brain wo con CLINICAL HISTORY: requewsted by family, worried about tumor Technique: Contiguous axial CT images of the head were acquired from the base of the skull to the becky garret without intravenous contrast administration. Images were viewed in brain, subdural and bone windo ws. Automated dose lowering techniques and/or adjustment according to patient size were utilized for this exam. Comparison: Comparison is made to CT head 09/23/2008 Findings: The ventricles, basal cisterns, and cerebral sulci are normal. There is no acute intracranial hemorrh age or evidence of acute territorial infarction. Neither mass effect, shift of the midline structures , nor abnormal extra-axial fluid collections are shown. Thickening of the right maxillary and sphenoid sinus mucous membrane. The orbits appear normal. There are no acute fractures of the calvaria or scalp swelling. Impression: No acute intracranial hemorrhage, no evidence of acute territorial infarction or other acute intracra nial disease process. In particular, no evidence of intracranial mass. ACT 112: Negative or not required by law. Electronically signed by: Álvaro Valverde M.D. 11/14/2023 1:58 PM
[2023-11-14 14:09] LABS: Albumin Level 4.8 gm/dl (3.4-5.0); Bilirubin,Total 0.3 mg/dl (0.2-1.0); Calcium 9.6 mg/dl (8.6-10.3); Potassium 3.7 mmol/L (3.5-5.1)
[2023-11-14 14:15] LABS: Albumin Globulin Ratio 1.7 (0.9-2); BUN Creatinine Ratio 14.7 (10-20); Creatinine Clr Calc Pharmacy 99.9 ml/min; Est GFR (Non-African American) 101.8 ml/min; Globulin 2.9 gm/dl (2.5-4.0); Total Protein 7.7 gm/dl (6.0-8.3)
[2023-11-14 14:27] LABS: Thyroid Stimulating Hormone 1.936 uIu/ml (0.300-4.500)
[2023-11-14] MEDS ORDERED: MAGNESIUM HYDROXIDE SUSP 30 ML UDC PO PRN (16:49)
[2023-11-14] MEDS ORDERED: ACETAMINOPHEN 325 MG TAB PO PRN (16:49)
[2023-11-14] MEDS ORDERED: BISMUTH SUBSALICYLATE LIQD 236 ML PO PRN (16:49)
[2023-11-14] MEDS ORDERED: SODIUM CHLORIDE 0.65% NA SOLN 45 ML (OCEAN) PRN (16:49)
[2023-11-14] MEDS ORDERED: ALUMINUM/MAGNESIUM SUSP 30 ML UDC PO PRN (16:49)
--- OUTSIDE RECORDS SUMMARY | 2023-11-15 01:37 | External Medical Summary | Summary of Care ---
Author Name Unknown Organization [facility] Address [address] [facility] [place] [address] Phone [phone] Care Team Providers Care Lining Sewer Name Role Phone Diann Bojorquez PA-C Primary Care Provider [phone] Reason for Visit * Reason Comments Infusion Venofer 09/12 Encounter Details Date Type Department Care Team (Latest Contact Info) Description 09/21/2023 9:15 AM EST Hem/Onc Treatment Hematology/Oncology Treatment, [place] [address] [place] [address] Iraida, Chair 7 Hem Onc [facility] [address] [place] [address] Iron deficiency anemia due to chronic blood loss* Allergies Active Allergy Reactions Criticality Noted Date Comments Morphine 03/28/2021 Other reaction(s): paranoia Shellfish Allergy Anaphylaxis High 11/27/2017 documented as of this encounter (statuses as of 11/04/2023) Medications Medication Sig Dispensed Refills Start Date End Date Status ZYRTEC 10 MG PO TABS 1 TABLET DAILY 0 09/28/2009 Active Vitamin and Mineral 28-0.8 MG Oral Tablet Take by mouth. 0 10/11/2022 Active Folic Acid 1 MG Oral Tablet Take 1 Tablet by mouth in the morning. 0 Active Venlafaxine HCl ER 150 MG Oral Capsule Extended Release 24 Hour (Effexor XR) Take 1 Capsule by mouth in the morning. Do not cut, crush or chew. 90 Capsule 3 05/09/2023 Active Fluconazole 150 MG Oral Tablet (Diflucan) Take 1 Tablet by mouth once for 1 dose. 1 Tablet 0 08/06/2023 10/03/2023 Discontinued (Medication List Clean Up) documented as of this encounter (statuses as of 11/04/2023) Active Problems Problem Noted Date Diagnosed Date Restless leg syndrome due to iron deficiency ane raine 01/13/2021 Iron deficiency anemia due to chronic blood loss 01/13/2021 Hypersomnolence disorder 10/18/2020 Restless legs 10/18/2020 Other parasomnia 10/18/2020 Moderate episode of recurrent major depressive d isorder 10/29/2017 Menometrorrhagia 10/29/2017 ADVANCE DIRECTIVE INFORMATION 07/26/2005 Overview: No, Advance Directive brochure given to patient. Other acne 04/29/2001 Urticaria 04/29/2001 documented as of this encounter (statuses as of 11/04/2023) Immunizations Name Administration Dates Next Due DTaP Dipth/Tet/Acell Pertussis (Infanrix), Peds 11/26/1990,05/02/1988,07/29/1986,1985,02/17/1986 HIB PRP-OMP, 3 dose (Pedvax) 01/10/1988 Haemophilius B (HIB), unspecified 01/10/1988 Hep A - Hepatitis A (ped/ado le, 1-18 Yrs) 03/23/2004,09/22/2003 IPV - Polio Virus Vaccine (Inact) 1990,07/29/1986,05/22/1986,1985 MMR - Measles/Mumps/Rubella Vaccine 11/26/1990,0 05/12/1987 OPV - Polio Virus Vaccine (Oral) 991,07/29/1986,05/22/1986,1985 PPD 08/16/2010, 9,10/07/2007,2006 Season Influenza, Cell Cultu re, 18+ Yrs, With Preserv (Flucelvax) 06/17/2021 Seasonal Influenza Virus Vac cine, Unspecified Formulation 06/29/2020,08/14/2019,08/19/2018,2017,08/16/2010 Seasonal Influenza, PF, 6 M & above, IM , (FluLaval or Fluzone) 06/29/2020,08/14/2019,08/19/2018,2017,08/16/2010 Seasonal Influenza, Split, I IV3, With Preserve, Inj 08/16/2010 TD - Tetanus/Diptheria (ADULT) 03/08/2010 TD, Preservative Free 06/29/2020,12/20/1999 TDAP (age 10 and older)(Boostrix) 03/08/2010 TDAP (age 11 and older)(Adacel) 03/08/2010 documented as of this encounter Social History Tobacco Use Types Packs/Day Years Used Date Smoking Tobacco: Never Smokeless Tobacco: Never Alcohol Use Standard Drinks/Week Comments No 0 (1 standard drink = 0.6 oz pur e alcohol) rare- few per year PHQ-2 Answer Date Recorded PHQ-2 Score 0 06/29/2020 Sex and Gender Information Value Date Recorded Sex Assigned at Not on file Gender Identity Not on file Sexual Orientation Not on file Job Start Date Occupation Industry Not on file Not on file Not on file documented as of this encounter Last Filed Vital Signs Vital Sign Reading Time Taken Comments Blood Pressure 122/86 09/21/2023 9:32 AM EST Pulse 100 09/21/2023 9:32 AM EST Temperature 37 C (98.6 F) 09/21/2023 9:32 AM EST Respiratory Rate 18 09/21/2023 9:32 AM EST Oxygen Saturation 98% 09/21/2023 9:32 AM EST Inhaled Oxygen Concentration - - Weight - - Height - - Body Mass Index - - documented in this encounter Nursing Notes * Shonda Saenz LPN - 09/21/2023 9:42 AM EST 0925: Pt arrived for Venofer 1/3 infusion. PIV in R metacarpal. Pt tolerated well. VSS. No complaints at this time. 1105: Pt tolerated Venofer infusion well. PIV removed intact. Pt to return in two weeks. Dischargedin stable condition. documented in this encounter Plan of Treatment Upcoming Encounters Date Type Department Care Team (Late st Contact Info) Description 11/16/2023 8:00 AM EST [facility] [place] [address] [facility] [address] [place] [address] [facility] [place] [address] 11/26/2023 4:30 PM EDT Telemedicine Hematology/Oncology [place] [address] [facility] [place] [address] Alia Leonard CRNP [address] [facility] [place] [address] Health Maintenance Due Date Last Done Comments Hepatitis B (1 of 3 - 19+ 3-dose series) 2004 HPV/Co-Test 11/23/2015 Cervical Cancer Screening 10/24/2020 Pap Smear 10/24/2020 10/24/2017, 02/2011 (Done elsewhere), 12/09/2009 (Done elsewhere), Additional history exists Depression Screening 06/29/2021 06/29/2020 COVID-19 Vaccine ( season) 2023 Influenza Vaccine (FLU shot) (#1) 2023 06/17/2021, 06/29/2020, 06/29/2020, Additional history exists DTaP,Tdap,and Td Vaccines (10 - Td or Tdap) 06/29/2030 06/29/2020, 03/08/2010, 03/08/2010, Additional history exists GARDASIL-HPV IMMUNIZATION SERIES Aged Out No longer eligible based on patient's age to complete this topic MENINGOCOCCAL (MENACTRA/MENVEO) Aged Out No longer eligible based on patient's age to complete this topic Pneumococcal Vaccine: Pediatrics (0 to 5 Years) and At-Risk Patients (6 to 64 Years) Aged Out No longer eligible based on patient's age to complete this topic documented as of this encounter Medical Devices Not on filedocumented as of this encounter Visit Diagnoses Diagnosis Iron deficiency anemia due to chronic blood loss- Primary Iron deficiency anemia secondary to blood loss (chronic) documented in this encounter Administered Medications Inactive Administered Medications - up to 3 most recent administrations Medication Order MAR Action Action Date Dose Rate Site Iron Sucrose (Venofer) 300 mg in NSS 250 mL ivpb 300 mg, IV Piggyback, ONCE, 1 dose, On Sun09/21/23 at 1045, Administer over 90 Minutes Start Infusion 09/21/2023 9:26 AM EST 300 mg 166.67 mL/hr NSS infusion 500 mL, Intravenous, at 50 mL/hr, CONTINUOUS, Starting on Sun09/21/23 at 1015, Until Sun09/21/23 at 1523 Start Infusion 09/21/2023 9:26 AM EST 500 mL 50 mL/hr documented in this encounter Care Teams Lining Sewer Relationship Specialty Start Date End Date [place] December [place] [address] [place] [address] PCP - General Physician Encoding Machine Operator 04/27/22 documented as of this encounter
--- OUTSIDE RECORDS SUMMARY | 2023-11-15 01:38 | External Medical Summary | Summary of Care ---
Author Name Unknown Organization [facility] Address [address] [place] [facility] [place] [place] [address] Phone [phone] Care Team Providers Care Rocket Engine Tester Name Role Phone Diann Bojorquez PA-C Primary Care Provider [phone] Reason for Visit * Reason Comments New Med Request Encounter Details Date Type Department Care Team (Late st Contact Info) Description 10/09/2023 Refill Family Practice [facility] [place] [address] [facility] [place] [address] Diann Bojorquez PA-C [address] [facility] [place] [address] Allergies Active Allergy Reactions Criticality Noted Date Comments Morphine 03/28/2021 Other reaction(s): paranoia Shellfish Allergy Anaphylaxis High 11/27/2017 documented as of this encounter (statuses as of 10/10/2023) Medications Medication Sig Dispensed Refills Start Date [...] or chew. 90 Capsule 3 05/09/2023 Active Venlafaxine HCl ER 37.5 MG Oral Capsule Extended Release 24 Hour (Effexor XR) Take 1 Capsule by mouth in the morning. Plus another 150 mg of Effexor daily.. 90 Capsule 0 10/10/2023 Active Venlafaxine HCl ER 37.5 MG Oral Capsule Extended Release 24 Hour (Effexor XR) Take 1 Capsule by mouth in the morning. Plus another 150 mg of effexer daily. Do not cut, crush or chew. 30 Capsule 5 10/03/2023 10/10/2023 Discontinued documented as of this encounter (statuses as of 10/10/2023) Active Problems Problem Noted Date Diagnosed Date [...] as of this encounter (statuses as of 10/10/2023) Immunizations Name Administration Dates Next Due DTaP [...] Seasonal Influenza Virus Vac cine, Unspecified Formulation 08/14/2019,08/19/2018,10/29/2017,2009 Seasonal Influenza, PF, 6 M & above, [...] on file documented as of this encounter Miscellaneous Notes * Telephone Encounter - Allyson Pedro RPh - 10/10/2023 2:50 PM ESTSigned Prescriptions: Disp Refills Venlafaxine HCl ER 37.5 MG Oral Capsule Ex*90 Cap*0 Sig: Take 1 Capsule by mouth in the morning. Plus another 150 mg of Effexor daily..Authorizing Provider: DIANN BOJORQUEZ AOrdering User: ALLYSON PEDRO * Telephone Encounter - Allyson Pedro RPh - 10/10/2023 2:49 PM EST Rerouted remaining refills to new pharmacy as requested. Thanks, Allyson Pedro Clinical Pharmacist [facility] ([facility] (Formerly [facility]) [phone] 10/10/2023, 2:49 PM documented in this encounter Plan of Treatment Upcoming Encounters Date Type Department Care Team (Late st Contact Info) Description 10/19/2023 8:30 AM EST Hem/Onc Treatment [facility]ology[facility] [place] [address] [facility] [address] Iraida, Chair 11 Hem On[address] [place] [address] 10/22/2023 8:40 AM EST Office Visit Family Practice [address] [place] [address] Diann Bojorquez PA-C [address] [facility] [place] [address] 11/16/2023 8:00 AM EST Laboratory Laboratory, [place] [address] [place] [id number] [place], Laboratory [address] [place] [address] 11/26/2023 4:30 PM EDT Telemedicine Hematology/Oncology [address] [place] [address] Alia Leonard CRNP [address] [place] [address] Health Maintenance Due Date Last Done Comments Hepatitis B (1 of 3 - 3-dose series) 1985 COVID-19 Vaccine (#1) 05/25/1986 HPV/Co-Test 11/23/2015 Cervical Cancer Screening 10/24/2020 Pap Smear 10/24/2020 10/24/2017, 04/0 02/2011 (Done elsewhere), 12/09/2009 (Done elsewhere), Additional history exists Depression Screening 06/29/2021 06/29/2020 Influenza Vaccine (FLU shot) (#1) 2023 06/17/2021, [...] Not on filedocumented as of this encounter Care Teams Rocket Engine Tester Relationship Specialty Start Date End Date Diann Bojorquez PA-C [address] [place] [address] PCP - General Physician Drop Wire Aliner 04/27/22 documented as of this encounter
--- OUTSIDE RECORDS SUMMARY | 2023-11-15 01:38 | External Medical Summary | Summary of Care ---
Author Name Unknown Organization [facility] Address [address] [facility] [place] [address] Phone [phone] Care Team Providers Care Educational Director Name Role Phone Diann Bojorquez PA-C Primary Care Provider [phone] Reason for Visit * Reason Comments Infusion Venofer 09/12 Encounter Details Date Type Department Care Team (Latest Contact Info) Description 09/21/2023 9:15 AM EST Hem/Onc Treatment Hematology/Oncology Treatment, [place] [address] [place] [address] Iraida, Chair 7 Hem Onc [facility] [address] [place] [address] Iron deficiency anemia due to chronic blood loss* Allergies Active Allergy Reactions Criticality Noted Date Comments Morphine 03/28/2021 Other reaction(s): paranoia Shellfish Allergy Anaphylaxis High 11/27/2017 documented as of this encounter (statuses as of 11/03/2023) Medications Medication Sig Dispensed Refills Start Date [...] as of this encounter (statuses as of 11/03/2023) Active Problems Problem Noted Date Diagnosed Date [...] as of this encounter (statuses as of 11/03/2023) Immunizations Name Administration Dates Next Due DTaP [...] Description 11/16/2023 8:00 AM EST Laboratory Laboratory, [place] [address] [facility] [address] [place], Laboratory [address] [facility], [place] [address] 11/26/2023 4:30 PM EDT Telemedicine Hematology/Oncology [place] [address] [facility] [place] [address] Alia Leonard CRNP [address] [facility] [place] [address] Health Maintenance [...] mL/hr documented in this encounter Care Teams Educational Director Relationship Specialty Start Date End Date [place] December TREVOR Alfaro [address] [place] [address] PCP - General Physician Radio Station Audio Engineer 04/27/22 documented as of this encounter
--- OUTSIDE RECORDS SUMMARY | 2023-11-15 01:38 | External Medical Summary | Summary of Care ---
Author Name Unknown Organization [facility] Address [address] [place] [facility] [place] [address] Phone [phone] Care Team Providers Care Court Recorder Name Role Phone Diann Bojorquez PA-C Primary Care Provider [phone] Reason for Visit * Reason Comments Infusion Venofer 11/10 Encounter Details Date Type Department Care Team (Latest Contact Info) Description 10/19/2023 8:30 AM EST Hem/Onc Treatment Hematology/Oncology Treatment, [place] [address] [place] [address] Iraida, Chair 11 Hem Onc [facility] 200 [place] [address] Iron deficiency anemia due to chronic blood loss* Allergies Active Allergy Reactions Criticality Noted Date Comments Morphine 03/28/2021 Other reaction(s): paranoia Shellfish Allergy Anaphylaxis High 11/27/2017 documented as of this encounter (statuses as of 10/19/2023) Medications Medication Sig Dispensed Refills Start Date [...] Effexor daily.. 90 Capsule 0 10/10/2023 Active documented as of this encounter (statuses as of 10/19/2023) Active Problems Problem Noted Date Diagnosed Date [...] as of this encounter (statuses as of 10/19/2023) Immunizations Name Administration Dates Next Due DTaP [...] Sign Reading Time Taken Comments Blood Pressure 121/78 10/19/2023 8:44 AM EST Pulse 100 10/19/2023 8:44 AM EST Temperature 36.8 C (98.2 F) 10/19/2023 8:44 AM ES T Respiratory Rate 18 10/19/2023 8:44 AM EST Oxygen Saturation 99% 10/19/2023 8:44 AM EST Inhaled Oxygen Concentration - - Weight - - Height - - Body Mass Index - - documented in this encounter Nursing Notes * Shonda Saenz LPN - 10/19/2023 8:44 AM EST 0835: Chair 6. Pt arrived for Venofer 3/3 infusion. PIV in R metacarpal. Pt tolerated well. VSS. Nocomplaints at this time. 1015: Pt tolerated Venofer infusion well. PIV removed intact. Pt to follow up with MD. Discharged in stable condition. documented in this encounter Plan of Treatment Upcoming Encounters Date Type Department Care Team (Late st Contact Info) Description 11/16/2023 8:00 AM EST Laboratory Laboratory, [place] [address] [place] [address] [place] [address] [facility] [place] [address] 11/26/2023 4:30 PM EDT Telemedicine Hematology/Oncology [facility] [place] [address] [facility] [address] Alia Leonard CRNP [address] [facility] [place] [address] Health Maintenance Due [...] (chronic) documented in this encounter Administered Medications Active Administered Medications - up to 3 most recent administrations Medication Order MAR Action Action Date Dose Rate Site diphenhydrAMINE (Benadryl) inj 50 mg 50 mg, IV Push, ONCE PRN Other, Hypersensitivity Reaction, Starting on Sun10/19/23 at 0840, Until 10/20/23 at 0839, For 24 hours EPINEPHrine 1 MG/ML inj 0.3 mg 0.3 mg, Intramuscular, ONCE PRN Other, Hypersensitivity Reaction or Anaphylaxis, Starting on Sun10/19/23 at 0840, Until 10/20/23 at 0839, For 24 hours hEParin 100 UNIT/ML Lock Flush inj 500 Units 500 Units (5 mL), IV Lock, PRN Other, IV Flush, Starting on Sun10/19/23 at 0840, Until 10/20/23 at 0839, For 24 hours, Do not flush if lock, PICC, or central line not in place; IV infusing or unable to flush. Hydrocortisone Sod Suc (PF) (Solu-Cortef) inj 100 mg 100 mg, IV Push, ONCE PRN Other, Hypersensitivity Reaction, Starting on Sun10/19/23 at 0840, Until 10/20/23 at 0839, For 24 hours NSS infusion 500 mL, Intravenous, at 50 mL/hr, CONTINUOUS, Starting on Sun10/19/23 at 0945, Until Sun10/19/23 at 1944 Start Infusion 10/19/2023 8:40 AM EST 500 mL 50 mL/hr oxygen GAS Inhalation, OXYGEN, First dose on Sun10/19/23 at 0915, Until Discontinued, Device/Managed by: Low Flow Device, Goal SPO2 (%): 91-95, Starting Device: Nasal Cannula, Initial Flow Rate (LPM): 2, Lowest Support: Nasal Cannula: Flow 0-6 LPM. Titrate up/down by 1 LPM., Higher Support: Non-Rebreather (NRB) Mask: Minimum of 10 LPM. Titrate to maintain bag inflation., Titration Interval: Q2 minutes and as needed., Notify Provider: For sudden DECREASE in resting SPO2 to less than 85% and when escalating delivery device., Wean patient off Oxygen when the oxygen saturation is greater than or equal to 93% sodium chloride 0.9 % flush central line 10 mL 10 mL, IV Push, PRN Other, IV Flush, Starting on Sun10/19/23 at 0840, Until 10/20/23 at 0839, For 24 hours, Do not flush if lock, PICC, or central line not in place; IV infusing or unable to flush. Inactive Administered Medications - up to 3 most recent administrations Medication Order MAR Action Action Date Dose Rate Site Iron Sucrose (Venofer) 300 mg in NSS 250 mL ivpb 300 mg, IV Piggyback, ONCE, 1 dose, On Sun10/19/23 at 1015, Administer over 90 Minutes Start Infusion 10/19/2023 8:40 AM EST 300 mg 166.67 mL/hr documented in this encounter Care Teams Court Recorder Relationship Specialty Start Date End Date [place] December TREVOR Alfaro [address] [place] [address] PCP - General Physician Lead Producer 04/27/22 documented as of this encounter
--- OUTSIDE RECORDS SUMMARY | 2023-11-15 01:38 | External Medical Summary | Summary of Care ---
Author Name Unknown Organization [facility] Address [address] [place] [place] [address] Phone [phone] Care Team Providers Care Director Digital Name Role Phone LynetteDiann jamison Dominic MURRAY Primary Care Provider [phone] Reason for Visit * Reason Comments Acute C/o urinary frequenc y for the past 5-6 days. Encounter Details Date Type Department Care Team ([facility] Contact Info) Description 11/01/2023 5:20 PM EST Office Visit General [facility] [address] [place] [address] Teresa Nelson MD [address] [place] [address] Urinary frequency*; Restless legs; Other acne Allergies Active Allergy Reactions Criticality Noted Date [...] Sign Reading Time Taken Comments Blood Pressure 112/68 11/01/2023 5:13 PM EST Pulse 69 11/01/2023 5:13 PM EST Temperature 37.4 C (99.4 F) 11/01/2023 5:13 PM ES T Respiratory Rate - - Oxygen Saturation 98% 11/01/2023 5:13 PM EST Inhaled Oxygen Concentration - - Weight 69.9 kg (154 lb) 11/01/2023 5:13 PM EST Height 170.2 cm (5' 7") 11/01/2023 5:13 PM EST Body Mass Index 24.12 11/01/2023 5:13 PM EST documented in this encounter Progress Notes * Teresa Nelson MD - 11/01/2023 5:20 PM EST Images from the original note were not included. History of Present Illness Rina Ferro is a 37 year old female that presents for Acute (C/o urinary frequency for the past 5-6days. ) Urinary Tract Infection Symptoms This is a new problem. The current episode started in the past 7 days (5-6 days). The problem has been waxing and waning. The patient is experiencing no pain. There has been no fever. She is Sexuallyactive. There is No history of pyelonephritis. Associated symptoms include chills, frequency and urgency. Pertinent negatives include no flank pain, hematuria, hesitancy, nausea or vomiting. Associated symptoms comments: Having menses . She has tried increased fluids for the symptoms. The treatmentprovided no relief. Physical Exam Vitals: 11/01/23 1713 Temp: 37.4 C (99.4 F) Pulse: 69 SpO2: 98% BP: 112/68 BMI: 24.11 Physical Exam Vitals reviewed. Constitutional: General: She is not in acute distress. Appearance: She is normal weight. She is not ill-appearing. HENT: Head: Normocephalic. Mouth/Throat: Mouth: Mucous membranes are moist. Pharynx: Oropharynx is clear. No oropharyngeal exudate or posterior oropharyngeal erythema. Cardiovascular: Rate and Rhythm: Normal rate and regular rhythm. Heart sounds: Normal heart sounds. No murmur heard. Abdominal: General: There is no distension. Palpations: Abdomen is soft. There is no mass. Tenderness: There is no abdominal tenderness. Musculoskeletal: General: No swelling or tenderness. Cervical back: No rigidity or tenderness. Right lower leg: No edema. Left lower leg: No edema. Lymphadenopathy: Cervical: No cervical adenopathy. Neurological: Mental Status: She is alert. I have reviewed the following results: Urinalysis, POC Assessment and Plan Urinary frequency Plenty of fluid - URINALYSIS, POINT OF CARE (ENTER/EDIT) - CULTURE, URINE, QUANTITATIVE Restless legs Other acne Wrap-Up Time: I spent a total of 20-29 minutes (exact time 24 mins) on the date of service in preparation, delivery, and documentation of the care provided to Rina Ferro excluding any time spent in the performance of separately billed services. documented in this encounter Nursing Notes * ArauzLauren LPN - 11/01/2023 5:13 PM EST Chief Complaint Patient presents with Acute C/o urinary frequency for the past 5-6 days. documented in this encounter Plan of Treatment Upcoming Encounters Date Type Department Care Team (Late st Contact Info) Description 11/16/2023 8:00 AM EST Laboratory Laboratory, [place] [address] [facility] [phone] [place], Laboratory [address] [facility], [place] [address] 11/26/2023 4:30 PM EDT Telemedicine Hematology/Oncology [facility] [place] [address] [facility] [address] Alia Leonard CRNP [address] [place] [address] Health Maintenance Due Date Last Done Comments Hepatitis B (1 of 3 - 19+ 3-dose series) 2004 HPV/Co-Test 11/23/2015 Cervical Cancer Screening 10/24/2020 Pap Smear 10/24/2020 10/24/2017, 02/2011 (Done elsewhere), 12/09/2009 (Done elsewhere), Additional history exists Depression Screening 06/29/2021 06/29/2020 COVID-19 Vaccine (2022-24 season) 2023 Influenza Vaccine (FLU shot) (#1) [...] Not on filedocumented as of this encounter Procedures Procedure Name Priority Date/Time Associated Diagnosis Comments CULTURE, URINE, QUANTITATIVE Routine 11/01/2023 5:31 PM EST Urinary frequency URINALYSIS, POINT OF CARE (ENTER/EDIT) Routine 11/01/2023 Urinary frequency documented in this encounter Results * CULTURE, URINE, QUANTITATIVE (11/01/2023 5:31 PM EST) Culture Growth No significant growth 11/03/2023 9:48 AM EST LAB[facility]ORY [facility] Urine Urine specimen obtained by clean catch procedure / Unknown Non-blood Collection / Unknown 11/01/2023 5:31 PM EST 11/02/2023 8:50 AM EST Teresa Nelson MD LAB MICRO - GENERAL ORDERABLES LAB[facility] [address] [place] [address] * URINALYSIS, POINT OF CARE (ENTER/EDIT) (11/01/2023) Color, Urine Brown Yellow or Light Yellow Clarity, Urine Clear Clear Glucose, Urine Negative Negative mg/dL Bilirubin, Urine Negative Negative Ketone, Urine Negative Negative mg/dL Specific [place], Urine 1.030 1.003 - 1.030 Blood, Urine Large Negative pH, Urine 5.5 5.0 - 7.5 units Protein, Urine 30 Negative mg/dL Urobilinogen, Urine 0.2 0.2 - 1.0 mg/dL Nitrite, Urine Negative Negative Esterase, Urine Negative Negative Urine 11/01/2023 Narrative Lauren Arauz LPN - 11/01/2023 Patient states she is on her period, which is why there is blood present. Teresa Nelson MD LAB POINT OF CARE TE ST ENTER/EDIT ORDERABLES documented in this encounter Visit Diagnoses Diagnosis Urinary frequency- Primary Restless legs Restless legs syndrome (RLS) Other acne documented in this encounter Care Teams Director Digital Relationship Specialty Start Date End Date December, PA-C [address] [place] [address] PCP - General Physician Care Program Director 04/27/22 documented as of this encounter
--- OUTSIDE RECORDS SUMMARY | 2023-11-15 01:38 | External Medical Summary ---
Author Name Unknown Address Unknown Organization K01:[facility] [address] [place] [address] Laboratory Report Ordering Provider Test Date Status CRISTY PINO 11/01/2023 17:31:40 Final Observation Date Value Abnormality Reference (Units) Status Bacteria identified in Specimen by Culture 11/01/2023 17:31:40 No significant growth Final Test: Culture, Urine, Quant itative
Specimen Source: Urine, Clean Catch
Specimen Type: Urine
Specimen Date: 11/01/2023 5:31 PM
Result Date: 11/03/2023 9:48 AM
Result Status: Final result
Resulting Lab: [facility]
[address]
[place] [address]

CULTURE

No significant growth

null Performing Location [facility] [address] [facility] [address]
--- OUTSIDE RECORDS SUMMARY | 2023-11-15 01:38 | External Medical Summary | Summary of Care ---
Author Name Unknown Organization [facility] Address [address] [place] [address] Phone [phone] Care Team Providers Care Rf Design Engineer Name Role Phone Diann Bojorquez PA-C Primary Care Provider [phone] Reason for Visit * Reason Comments IV Therapy Venofer #2 Encounter Details Date Type Department Care Team (Latest Contact Info) Description 10/05/2023 2:30 PM EST Hem/Onc Treatment Hematology/Oncology Treatment, [place] [address] [place] [address] Iraida, Chair 8 Hem Onc [facility] [address] [place] [address] Iron deficiency anemia due to chronic blood loss* Allergies Active Allergy Reactions Criticality Noted Date Comments Morphine 03/28/2021 Other reaction(s): paranoia Shellfish Allergy Anaphylaxis High 11/27/2017 documented as of this encounter (statuses as of 11/01/2023) Medications Medication Sig Dispensed Refills Start Date [...] as of this encounter (statuses as of 11/01/2023) Active Problems Problem Noted Date Diagnosed Date [...] as of this encounter (statuses as of 11/01/2023) Immunizations Name Administration Dates Next Due DTaP Dipth/Tet/Acell Pertussis (Infanrix), Peds 11/26/1990,05/02/1988,07/29/1986,1985,02/17/1986 HIB PRP-OMP, 3 dose (Pedvax) 01/10/1988 Haemophilius B (HIB), unspecified 01/10/1988 Hep A - Hepatitis A (ped/ado le, 1-18 Yrs) 03/23/2004,09/22/2003 IPV - Polio Virus Vaccine (Inact) 1990,07/29/1986,05/22/1986,1985 MMR - Measles/Mumps/Rubella Vaccine 11/26/1990,0 05/12/1987 OPV - Polio Virus Vaccine (Oral) 991,07/29/1986,05/22/1986,1985 PPD 08/16/2010,200 9,10/07/2007,2006 Season Influenza, Cell Cultu re, 18+ [...] Sign Reading Time Taken Comments Blood Pressure 125/75 10/05/2023 2:45 PM EST Pulse 100 10/05/2023 2:45 PM EST Temperature 36.7 C (98.1 F) 10/05/2023 2:45 PM ES T Respiratory Rate 18 10/05/2023 2:45 PM EST Oxygen Saturation 98% 10/05/2023 2:45 PM EST Inhaled Oxygen Concentration - - Weight - - Height - - Body Mass Index - - documented in this encounter Nursing Notes * Janet Mai RN - 10/05/2023 4:48 PM EST Functional status at today's visit: Fully active, able to carry on all pre-disease performance without restriction The drug name, dose, infusion volume, rate and route of administration, expiration date and time, appearance and physical integrity of the drug and rate set on the pump and sequencing of drug administration (as applicable) were verified by me and second sign-in RN. Patient was assessed for symptoms or adverse side effects during treatment. Goals: Patient will remain free from injury. Possible barriers to meeting goals: ambulation with IV pole Stability of the patient: Moderately stable - low risk of patient condition declining or worsening Summary regarding today's goals: Met: Pt remained free of injury during treatment Patient tolerated treatment well and was discharged in stable condition. No coverage needed today. * Janet Mai RN - 10/05/2023 4:09 PM EST Chair 3 Pt arrives for venofer. She states she's doing well, denies any acute complaints. IV started in theright hand without difficulty, good blood return noted, flushed with NSS, fluids infusing. Safety and Risk for Injury Patient will remain free from injury. Ensure appropriate safety devices are available. Provide and maintain safe environment. documented in this encounter Plan of Treatment Upcoming Encounters Date Type Department Care Team (Late st Contact Info) Description 11/16/2023 8:00 AM EST Laboratory Laboratory, [place] [address] [place] [phone] [place], [facility] [address] [place] [address] 11/26/2023 4:30 PM EDT Telemedicine Hematology/Oncology [facility] [address] [facility] [phone] Alia Leonard CRNP [address] [facility] [place] [id number] Health Maintenance Due Date Last Done Comments [...] mg, IV Piggyback, ONCE, 1 dose, On Sun10/05/23 at 1645, Administer over 90 Minutes Start Infusion 10/05/2023 3:02 PM EST 300 mg 166.67 mL/hr NSS infusion 500 mL, Intravenous, at 50 mL/hr, CONTINUOUS, Starting on Sun10/05/23 at 1615, Until Sun10/05/23 at 2050 Start Infusion 10/05/2023 2:55 PM EST 500 mL 50 mL/hr documented in this encounter Care Teams Rf Design Engineer Relationship Specialty Start Date End Date [place] December TREVOR Alfaro [address] [place] [address] PCP - General Physician Information Director 04/27/22 documented as of this encounter
--- OUTSIDE RECORDS SUMMARY | 2023-11-15 01:38 | External Medical Summary | Summary of Care ---
Author Name Unknown Organization [facility] Address [address] [place] [address] Phone [phone] Care Team Providers Care Hostess Host Name Role Phone Diann Bojorquez PA-C Primary Care Provider [phone] Reason for Visit * Reason Comments IV Therapy Venofer #2 Encounter Details Date Type Department Care Team (Latest Contact Info) Description 10/05/2023 2:30 PM EST Hem/Onc Treatment Hematology/Oncology Treatment, [place] [address] [place] [address] Iraida, Chair 8 Hem Onc [facility] 200 [place] [address] Iron deficiency anemia due to chronic blood loss* Allergies Active Allergy Reactions Criticality Noted Date Comments Morphine 03/28/2021 Other reaction(s): paranoia Shellfish Allergy Anaphylaxis High 11/27/2017 documented as of this encounter (statuses as of 10/05/2023) Medications Medication Sig Dispensed Refills Start Date [...] crush or chew. 30 Capsule 5 10/03/2023 Active documented as of this encounter (statuses as of 10/05/2023) Active Problems Problem Noted Date Diagnosed Date [...] as of this encounter (statuses as of 10/05/2023) Immunizations Name Administration Dates Next Due DTaP [...] 8:30 AM EST Hem/Onc Treatment Hematology/Oncology Treatment, [place] [address] [facility] [place] [address] Iraida, Chair 11 Hem Onc [address] [place] [address] 10/22/2023 8:40 AM EST Office Visit [facility] [place] [address] [facility] [place] [address] Diann Bojorquez PA-C [address] [facility] [place] [address] 11/16/2023 8:00 AM EST Laboratory Laboratory, [place] [address] [facility] [place] [phone] [facility] [address] [facility] [place] [address] 11/26/2023 4:30 PM EDT Telemedicine Hematology/Oncology [facility] [address] [facility] [place] [address] Alia Leonard, MARY [address] [place] [address] Health Maintenance Due Date [...] ONCE PRN Other, Hypersensitivity Reaction, Starting on Sun10/05/23 at 1500, Until 10/06/23 at 1459, For 24 hours EPINEPHrine 1 MG/ML inj 0.3 mg 0.3 mg, Intramuscular, ONCE PRN Other, Hypersensitivity Reaction or Anaphylaxis, Starting on Sun10/05/23 at 1500, Until 10/06/23 at 1459, For 24 hours hEParin 100 UNIT/ML Lock Flush inj 500 Units 500 Units (5 mL), IV Lock, PRN Other, IV Flush, Starting on Sun10/05/23 at 1500, Until 10/06/23 at 1459, For 24 hours, Do not flush if lock, PICC, or central line not in place; IV infusing or unable to flush. Hydrocortisone Sod Suc (PF) (Solu-Cortef) inj 100 mg 100 mg, IV Push, ONCE PRN Other, Hypersensitivity Reaction, Starting on Sun10/05/23 at 1500, Until 10/06/23 at 1459, For 24 hours NSS infusion 500 mL, Intravenous, at 50 mL/hr, CONTINUOUS, Starting on Sun10/05/23 at 1615, Until 10/06/23 at 0214 Start Infusion 10/05/2023 2:55 PM EST 500 mL 50 mL/hr oxygen GAS Inhalation, OXYGEN, First dose on Sun10/05/23 at 1600, Until Discontinued, Device/Managed by: Low Flow Device, [...] Push, PRN Other, IV Flush, Starting on Sun10/05/23 at 1500, Until 10/06/23 at 1459, For 24 hours, Do not flush if [...] 3:02 PM EST 300 mg 166.67 mL/hr documented in this encounter Care Teams Hostess Host Relationship Specialty Start Date End Date [place] December Dominic, TREVOR [address] [place] [address] PCP - General Physician Chain Forming Machine Operator 04/27/22 documented as of this encounter
--- OUTSIDE RECORDS SUMMARY | 2023-11-15 01:38 | External Medical Summary | Summary of Care ---
Author Name Unknown Organization [facility] Address [address] [place] [address] Phone [phone] Care Team Providers Care Manager Of Investigations Name Role Phone Diann Bojorquez PA-C Primary Care Provider [phone] Reason for Visit * Reason Comments IV Therapy Venofer #2 Encounter Details Date Type Department Care Team (Latest Contact Info) Description 10/05/2023 2:30 PM EST Hem/Onc Treatment Hematology/Oncology Treatment, [place] [address] [place] [address] Iraida, Chair 8 Hem Onc [facility] 200 [place] [address] Iron deficiency anemia due to chronic blood loss* Allergies Active Allergy Reactions Criticality Noted Date Comments Morphine 03/28/2021 Other reaction(s): paranoia Shellfish Allergy Anaphylaxis High 11/27/2017 documented as of this encounter (statuses as of 10/31/2023) Medications Medication Sig Dispensed Refills Start Date [...] as of this encounter (statuses as of 10/31/2023) Active Problems Problem Noted Date Diagnosed Date [...] as of this encounter (statuses as of 10/31/2023) Immunizations Name Administration Dates Next Due DTaP [...] Description 11/16/2023 8:00 AM EST Laboratory Laboratory, [place] [address] [place] [phone] [place], Laboratory [address] [place] [address] 11/26/2023 4:30 PM EDT Telemedicine Hematology/Oncology [facility] [place] [facility] [address] Alia Leonard CRNP [address] [facility] [place] [id number] Health Maintenance Due Date Last Done Comments [...] mL/hr documented in this encounter Care Teams Manager Of Investigations Relationship Specialty Start Date End Date Diann Bojorquez PA-C [address] [place], [place] [address] PCP - General Physician Ice Cream Maker 04/27/22 documented as of this encounter
--- OUTSIDE RECORDS SUMMARY | 2023-11-15 01:39 | External Medical Summary | Summary of Care ---
Author Name Unknown Organization [facility] Address [address] [facility] [place] [place] [address] Phone [phone] Care Team Providers Care Wound Care Physician Name Role Phone Diann Bojorquez PA-C Primary Care Provider [phone] Reason for Visit * Reason Comments Infusion Venofer 09/12 Encounter Details Date Type Department Care Team (Latest Contact Info) Description 09/21/2023 9:15 AM EST Hem/Onc Treatment Hematology/Oncology Treatment, [place] [address] [place] [address] Iraida, Chair 7 Hem Onc [facility] [address] [place] [address] Iron deficiency anemia due to chronic blood loss* Allergies Active Allergy Reactions Criticality Noted Date Comments Morphine 03/28/2021 Other reaction(s): paranoia Shellfish Allergy Anaphylaxis High 11/27/2017 documented as of this encounter (statuses as of 09/21/2023) Medications Medication Sig Dispensed Refills Start Date [...] or chew. 90 Capsule 3 05/09/2023 Active documented as of this encounter (statuses as of 09/21/2023) Active Problems Problem Noted Date Diagnosed Date [...] as of this encounter (statuses as of 09/21/2023) Immunizations Name Administration Dates Next Due DTaP [...] Care Team (Late st Contact Info) Description 10/05/2023 2:30 PM EST Hem/Onc Treatment Hematology/Oncology Treatment, [place] [address] [place] [address] Iraida, Chair 8 Hem Onc [place] 200 [place] [address] 10/16/2023 5:00 PM EST Telemedicine Hematology/Oncology [facility] [place] 200 [facility] [place] [address] Alia Leonard CRNP 400 [facility] [place] [address] 10/19/2023 8:30 AM EST Hem/Onc Treatment Hematology/Oncology Treatment, [place] 200 [facility] [place] [address] Iraida, Chair 11 Hem Onc [address] [place] [address] 10/22/2023 8:40 AM EST Office Visit Family Practice [facility] [place] 200 [facility] [place] [address] Diann Bojorquez PA-C 200 [facility] [place] [address] 11/16/2023 8:00 AM EST Laboratory Laboratory, [place] [address] [place] [id number] [place], Laboratory [address] [place] [address] Health Maintenance Due Date Last Done Comments [...] ONCE PRN Other, Hypersensitivity Reaction, Starting on Sun09/21/23 at 0913, Until 09/22/23 at 0912, For 24 hours EPINEPHrine 1 MG/ML inj 0.3 mg 0.3 mg, Intramuscular, ONCE PRN Other, Hypersensitivity Reaction or Anaphylaxis, Starting on Sun09/21/23 at 0913, Until 09/22/23 at 0912, For 24 hours hEParin 100 UNIT/ML Lock Flush inj 500 Units 500 Units (5 mL), IV Lock, PRN Other, IV Flush, Starting on Sun09/21/23 at 0913, Until 09/22/23 at 0912, For 24 hours, Do not flush if lock, PICC, or central line not in place; IV infusing or unable to flush. Hydrocortisone Sod Suc (PF) (Solu-Cortef) inj 100 mg 100 mg, IV Push, ONCE PRN Other, Hypersensitivity Reaction, Starting on Sun09/21/23 at 0913, Until 09/22/23 at 0912, For 24 hours NSS infusion 500 mL, Intravenous, at 50 mL/hr, CONTINUOUS, Starting on Sun09/21/23 at 1015, Until Sun09/21/23 at 2014 Start Infusion 09/21/2023 9:26 AM EST 500 mL 50 mL/hr oxygen GAS Inhalation, OXYGEN, First dose on Sun09/21/23 at 0945, Until Discontinued, Device/Managed by: Low Flow Device, [...] Push, PRN Other, IV Flush, Starting on Sun09/21/23 at 0913, Until 09/22/23 at 0912, For 24 hours, Do not flush if [...] 9:26 AM EST 300 mg 166.67 mL/hr documented in this encounter Care Teams Wound Care Physician Relationship Specialty Start Date End Date Diann Bojorquez PA-C [address] [place] [address] [place] [address] PCP - General Physician Superintendent Stations 04/27/22 documented as of this encounter
--- OUTSIDE RECORDS SUMMARY | 2023-11-15 01:39 | External Medical Summary | Summary of Care ---
Author Name Unknown Organization [facility] Address [address] [place] [address] Phone [phone] Care Team Providers Care Affiliate Marketing Manager Name Role Phone Diann Bojorquez PA-C Primary Care Provider [phone] Reason for Visit * Reason Onset Date Comments Appointment 09/12/2023 Treatment Encounter Details Date Type Department Care Team ([facility] st Contact Info) Description 09/12/2023 Telephone Access Center, [place] [address] [facility] *DO NOT REMOVE THIS DEPARTMENT* [place] [address] Services, Scheduling [address] [place] [address] Appointment (Treatment) Allergies Active Allergy Reactions Criticality Noted Date Comments Morphine 03/28/2021 Other reaction(s): paranoia Shellfish Allergy Anaphylaxis High 11/27/2017 documented as of this encounter (statuses as of 09/17/2023) Medications Medication Sig Dispensed Refills Start Date [...] as of this encounter (statuses as of 09/17/2023) Active Problems Problem Noted Date Diagnosed Date [...] as of this encounter (statuses as of 09/17/2023) Immunizations Name Administration Dates Next Due DTaP Dipth/Tet/[place] Pertussis (Infanrix), Peds 11/26/1990,05/02/1988,07/29/1986,1985,02/17/1986 HEP A - Hepatitis A (Adult > 18 yrs) 03/23/2004, 09/22/2003 HIB PRP-OMP, 3 dose (Pedvax) 01/10/1988 Haemophilius B (HIB), unspecified 01/10/1988 Hep A - Hepatitis A (ped/ado le, 1-18 Yrs) 03/23/2004,09/22/2003 IPV - Polio Virus Vaccine (Inact) 1990,07/29/1986,05/22/1986,1985 MMR - Measles/Mumps/Rubella Vaccine 11/26/1990,0 05/12/1987 OPV - Polio Virus Vaccine (Oral) 991,07/29/1986,05/22/1986,1985 PPD 08/16/2010, 9,10/07/2007,2006,08/02/2005,04/29/2001 Season Influenza, Cell Cultu re, 18+ Yrs, With Preserv (Flucelvax) 06/17/2021 Seasonal Influenza Virus Vac cine, Unspecified Formulation 08/14/2019,08/19/2018,10/29/2017,2009 Seasonal Influenza, PF, 6 M & above, IM , (FluLaval or Fluzone) 06/29/2020,08/14/2019,08/19/2018,2017,08/16/2010 Seasonal Influenza, Split, I IV3, With Preserve, Inj 08/16/2010 TD - Tetanus/Diptheria (ADULT) 03/08/2010,1999 TD, Preservative Free 06/29/2020,12/20/1999 TDAP (age 10 and older)(Boostrix) 03/08/2010 TDAP (age 11 and older)(Adacel) 03/08/2010 Typhoid Vaccine Oral (Vivotif) 09/22/2003 documented as of this encounter Social History [...] as of this encounter Miscellaneous Notes * Addendum Note - Dani Lara RN - 09/17/2023 11:34 AM ESTAddended by: DANI LARA on: 09/17/2023 11:34 AM Modules accepted: Orders * Telephone Encounter - Dani Lara RN - 09/17/2023 11:34 AM EST [place] plan built and routed for signature. * Telephone Encounter - Afua Cifuentes OSA - 09/17/2023 9:31 AM EST Called and spoke to patient and she requested to start venofer on 09/21/23. * Addendum Note - Leda Leonard CRNP - 09/17/2023 9:26 AM ESTAddended by: LEDA LEONARD on: 09/17/2023 09:26 AM Modules accepted: Orders * Telephone Encounter - Leda Leonard CRNP - 09/17/2023 9:24 AM EST Order placed for IV Venofer 300 mg every other week x 3 doses. Please assist patient with scheduling. * Telephone Encounter - Trung Ruelas RN - 09/14/2023 10:38 AM EST Lab results are in process and will be reviewed once completed. MyG sent to patient. * Telephone Encounter - Alie Arreola OSA - 09/14/2023 10:19 AM EST Pt calling to schedule her Iron infusion. She had labs done today. Please call pt back. * Telephone Encounter - Dani Lara RN - 09/12/2023 9:32 AM EST Patient will need to repeat lab work prior to proceeding with further scheduling. Left message for patient to go to lab, lab results will be reviewed and iron ordered if indicated. * Telephone Encounter - Jaye Schuster OSA - 09/12/2023 8:46 AM EST Pt called in stating that she just noticed she had a message from back in July that she need tostart back on her iron infusions. She is asking if someone could please return her call to help herscheduled those infusions. [phone] documented in this encounter Plan of Treatment Upcoming Encounters Date Type Department Care Team (Late st Contact Info) Description 09/21/2023 9:15 AM EST Hem/Onc Treatment Hematology/Oncology Treatment, [place] 200 [facility] [place] [address] Iraida, Chair 7 Hem Onc [address] [place] [address] 10/16/2023 5:00 PM EST Telemedicine Hematology/Oncology [facility] [address] [place] [address] Leda Leonard CRNP 400 [facility] [place] [address] 10/22/2023 8:40 AM EST Office Visit Family Practice [facility] [address] [place] [address] Diann Bojorquez PA-C 200 [facility] [place] [address] Health Maintenance Due Date Last Done Comments Hepatitis B (1 of 3 - 3-dose series) 1985 COVID-19 Vaccine (#1) 05/25/1986 HPV/Co-Test 11/23/2015 Cervical Cancer Screening 10/24/2020 Pap Smear 10/24/2020 10/24/2017, 0402/2011 (Done elsewhere), 12/09/2009 (Done elsewhere), Additional history [...] Not on filedocumented as of this encounter Results * IRON SCREEN, INCLUDING TIBC (09/14/2023 9:45 AM EST) Iron 99 33 - 151 ug/dL 09/14/2023 4:44 PM EST [facility] Iron Binding Capacity 299 250 - 425 ug/dL 09/14/2023 4:44 PM EST [facility] Transferrin Saturation Percent 33 15 - 55 % 09/14/2023 4:44 PM EST [facility] Blood Venous blood specimen / Unknown Venipuncture / Unknown 09/14/2023 9:45 AM EST 09/14/2023 9:45 AM EST Leda HERNANDEZ LAB BLOOD ORDER [facility] [address] [place] [address] * FERRITIN (09/14/2023 9:45 AM EST) Ferritin 34 13 - 150 ng/mL 09/14/2023 11:51 PM EST [facility] Blood Venous blood specimen / Unknown Venipuncture / Unknown 09/14/2023 9:45 AM EST 09/14/2023 9:45 AM EST Leda HERNANDEZ LAB BLOOD ORDER [facility]ILIP[facility] [address] [place] [address] documented in this encounter Visit Diagnoses Diagnosis Iron deficiency anemia 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
--- OUTSIDE RECORDS SUMMARY | 2023-11-15 01:39 | External Medical Summary ---
Author Name Unknown Address Unknown Organization K01:LABORATORY [facility] - [facility] [place] [address] Laboratory Report Ordering Provider Test Date Status JORGE TOMPKINS 09/14/2023 09:45:30 Final Observation Date Value Abnormality Reference (Units ) Status WBC, Total 09/14/2023 09:45:30 6.25 4.00-10.80 (K/uL) Final RBC 09/14/2023 09:45:30 4.19 3.85-5.15 (M/uL) Final Hemoglobin 09/14/2023 09:45:30 13.3 12.0-15.3 (g/dL) Final HCT 09/14/2023 09:45:30 39.9 36.0-45.2 (%) Final MCV 09/14/2023 09:45:30 95.2 81.5-97.5 (fL) Final MCH 09/14/2023 09:45:30 31.7 27.0-34.0 (pg) Final MCHC 09/14/2023 09:45:30 33.3 32.0-36.0 (g/dL) Final RDW 09/14/2023 09:45:30 12.6 11.5-15.5 (%) Final Platelets 09/14/2023 09:45:30 219 140-400 (K/uL) Final MPV 09/14/2023 09:45:30 13.9 6.6-11.1 (fL) Final Nucleated erythrocytes/100 leukocytes [Ratio] in Blood by Automated count 09/14/2023 09:45:30 0 <=0 (/100 WBCs) Final Performing Location LABORATORY [facility] - [address] [place] [address]
--- OUTSIDE RECORDS SUMMARY | 2023-11-15 01:39 | External Medical Summary | Summary of Care ---
Author Name Unknown Organization [facility] Address [address] [place] [address] Phone [phone] Care Team Providers Care Genomics Scientist Name Role Phone Diann Bojorquez PA-C Primary Care Provider [phone] Reason for Visit * Reason Comments Outpatient Testing Encounter Details Date Type Department Care Team (Late st Contact Info) Description 09/14/2023 9:50 AM EST Laboratory Laboratory, [place] [address] [place] [address] [place], Laboratory [address] [place] [address] Iron deficiency anemia due to chronic blood loss Allergies Active Allergy Reactions Criticality Noted Date Comments Morphine 03/28/2021 Other reaction(s): paranoia Shellfish Allergy Anaphylaxis High 11/27/2017 documented as of this encounter (statuses as of 09/14/2023) Medications Medication Sig Dispensed Refills Start Date [...] as of this encounter (statuses as of 09/14/2023) Active Problems Problem Noted Date Diagnosed Date [...] as of this encounter (statuses as of 09/14/2023) Immunizations Name Administration Dates Next Due DTaP [...] on file documented as of this encounter Plan of Treatment Upcoming Encounters Date Type Department Care Team (Late st Contact Info) Description 10/16/2023 5:00 PM EST Telemedicine Hematology/Oncology [address] [place] [address] Alia Leonard CRNP 400 [facility] [place] [address] 10/22/2023 8:40 AM EST Office Visit Family Practice [facility] 200 [facility] [place] [address] Diann Bojorquez PA-C [address] [place] [address] [place] [address] Pending Results Name Type Priority Associated Diagnoses Date /Time CBC WITH WBC DIFFERENTIAL Lab STAT Iron deficiency anemia due to chronic blood loss 09/14/2023 9:45 AM EST FERRITIN Lab STAT Iron deficiency anemia due to chronic blood loss 09/14/2023 9:45 AM EST IRON SCREEN, INCLUDING TIBC Lab STAT Iron deficiency anemia due to chronic blood loss 09/14/2023 9:45 AM EST CBC Lab STAT Iron deficiency anemia due to chronic blood loss 09/14/2023 9:45 AM EST DIFFERENTIAL, AUTOMATED Lab STAT Iron deficiency anemia due to chronic blood loss 09/14/2023 9:45 AM EST Health Maintenance Due Date Last Done Comments Hepatitis B (1 of 3 - 3-dose series) 1985 COVID-19 Vaccine (#1) 05/25/1986 HPV/Co-Test 11/23/2015 Cervical Cancer Screening 10/24/2020 Pap Smear 10/24/2020 10/24/2017, 04/02/2011 (Done elsewhere), 12/09/2009 (Done elsewhere), Additional history [...] deficiency anemia due to chronic blood loss Iron deficiency anemia secondary to blood loss (chronic) documented in this encounter Care Teams Genomics Scientist Relationship Specialty Start Date End Date [place] TREVOR Alfaro [address] [place] [address] PCP - General Physician Fur Mixer 04/27/22 documented as of this encounter
--- OUTSIDE RECORDS SUMMARY | 2023-11-15 01:39 | External Medical Summary | Summary of Care ---
Author Name Unknown Organization [facility] Address [address] [place] [address] Phone [phone] Care Team Providers Care Human Anatomy Teacher Name Role Phone Diann Bojorquez PA-C Primary Care Provider [phone] Reason for Visit * Reason Onset Date Comments Appointment 09/12/2023 Treatment Encounter Details Date Type Department Care Team ([facility] st Contact Info) Description 09/12/2023 Telephone Access Center, [place] [address] [facility] *DO NOT REMOVE THIS DEPARTMENT* [place] [address] Services, Scheduling [address] [place] [address] Appointment (Treatment) Allergies Active Allergy Reactions Criticality [...] encounter Miscellaneous Notes * Telephone Encounter - Afua Cifuentes OSA [...] call pt back. * Telephone Encounter - Mandie Lara RN - 09/12/2023 9:32 AM EST [...] her call to help herscheduled those infusions. [phone] documented in this encounter Plan of Treatment Upcoming Encounters Date Type Department Care Team (Late st Contact Info) Description 09/21/2023 9:15 AM EST Hem/Onc Treatment Hematology/Oncology Treatment, [place] [address] [facility] [address] Iraida, Chair 7 Hem Onc [address] [place] [address] 10/16/2023 5:00 PM EST Telemedicine Hematology/Oncology [facility] [address] [place] [address] Leda Leonard CRNP [address] [place], [place] [address] [address] 10/22/2023 8:40 AM EST Office Visit Family Practice [place] [address] [place] [address] Diann Bojorquez PA-C [address] [facility] [place] [address] Health Maintenance Due Date Last Done Comments [...] AM EST 09/14/2023 9:45 AM EST Leda Leonard MARY LAB BLOOD ORDER [facility] [address] [place] [address] * FERRITIN (09/14/2023 9:45 AM EST) Ferritin 34 13 - 150 ng/mL 09/14/2023 11:[address] 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 [place] [place] [address] PCP - General Physician Rate Clerk Passenger 04/27/22 documented as of this encounter
--- OUTSIDE RECORDS SUMMARY | 2023-11-15 01:39 | External Medical Summary | Summary of Care ---
Author Name Unknown Organization [facility] Address [address] [place] [address] Phone [phone] Care Team Providers Care News Assignment Editor Name Role Phone Diann Bojorquez PA-C Primary Care Provider [phone] Reason for Visit * Reason Onset Date Comments Appointment 09/12/2023 Treatment Encounter Details Date Type Department Care Team ([facility] st Contact Info) Description 09/12/2023 Telephone Access Center, [place] [address] [facility] *DO NOT REMOVE THIS DEPARTMENT* [place] [address] Services, Scheduling [address] [place] [address] Appointment (Treatment) Allergies Active Allergy Reactions Criticality [...] encounter Miscellaneous Notes * Addendum Note - Leda Leonard CRNP [...] her call to help herscheduled those infusions. [phone] documented in this encounter Plan of Treatment Upcoming Encounters Date Type Department Care Team (Late st Contact Info) Description 10/16/2023 5:00 PM EST Telemedicine Hematology/Oncology [facility] [address] [place] [address] Leda Leonard CRNP 400 [facility] [place] [address] 10/22/2023 8:40 AM EST Office Visit Family Practice [facility] [address] [place] [address] Diann Bojorquez PA-C [address] [place] [address] Health Maintenance Due Date Last Done Comments [...] BLOOD ORDER [facility] [address] [place] [address] * FERRITIN (09/14/2023 9:45 AM EST) Ferritin 34 13 - 150 ng/mL 09/14/2023 11:51 PM EST [facility] Blood Venous blood specimen / Unknown Venipuncture / Unknown 09/14/2023 9:45 AM EST 09/14/2023 9:45 AM EST Leda Tabatha HERNANDEZ LAB BLOOD ORDER [facility] LAB[facility]AT[facility] [address] [place] [address] documented in this encounter Visit Diagnoses Diagnosis Iron deficiency anemia due to chronic blood loss- Primary Iron deficiency anemia secondary to blood loss (chronic) documented in this encounter Care Teams News Assignment Editor Relationship Specialty Start Date End Date [place] December Dominic, PANanciC [address] [place] [address] PCP - General Physician Building Construction Inspector 04/27/22 documented as of this encounter
--- OUTSIDE RECORDS SUMMARY | 2023-11-15 01:39 | External Medical Summary ---
Author Name Unknown Address Unknown Organization K01:LABORATORY [facility] - [address] [place] [address] Laboratory Report Ordering Provider Test Date Status JORGE TOMPKINS 09/14/2023 09:45:30 Final Observation Date Value Abnormality Reference (Units ) Status Iron 09/14/2023 09:45:30 99 33-151 (ug /dL) Final Iron-binding capacity 09/14/2023 09:45:30 299 250-425 (ug/dL) Final Transferrin Sat % 09/14/2023 09:45:30 33 15 -55 (%) Final Performing Location LABORATORY [facility] - [address] [place] [address]
--- OUTSIDE RECORDS SUMMARY | 2023-11-15 01:39 | External Medical Summary | Summary of Care ---
Author Name Unknown Organization [facility] Address [address] [place] [address] Phone [phone] Care Team Providers Care Air Drier Machine Operator Name Role Phone Diann Bojorquez PA-C Primary Care Provider [phone] Reason for Visit * Reason Onset Date Comments Appointment 09/12/2023 Treatment Encounter Details Date Type Department Care Team ([facility] st Contact Info) Description 09/12/2023 Telephone Access Center, [place] [address] [facility] *DO NOT REMOVE THIS DEPARTMENT* [place] [address] Services, Scheduling [address] [place] [address] Appointment (Treatment) Allergies Active Allergy Reactions Criticality [...] encounter Miscellaneous Notes * Telephone Encounter - Trung Ruelas RN [...] her call to help herscheduled those infusions. [phone] documented in this encounter Plan of Treatment Upcoming Encounters Date Type Department Care Team (Late st Contact Info) Description 10/16/2023 5:00 PM EST Telemedicine Hematology/Oncology [facility] 200 [facility] [place] [address] Alia Leonard CRNP [address] [place] [address] 10/22/2023 8:40 AM EST Office Visit Family Practice [facility] [place] 200 [facility] [place] [address] Diann Bojorquez PA-C 200 [facility] [place] [address] Health Maintenance Due Date Last Done Comments [...] 9:45 AM EST 09/14/2023 9:45 AM EST Alia HERNANDEZ LAB BLOOD ORDER [facility]ILIPPE Performing Organization Address City/[facility]/ZIP Co de Phone Number LAB[facility]ORY [facility] [address] [place] [address] * FERRITIN (09/14/2023 9:45 AM EST) Ferritin 34 13 - 150 ng/mL 09/14/2023 11:51 PM EST [facility] Blood Venous blood specimen / Unknown Venipuncture / Unknown 09/14/2023 9:45 AM EST 09/14/2023 9:45 AM EST Alia HERNANDEZ LAB BLOOD ORDER PHILIPPE Performing Organization Address City/[facility]/ZIP Co de Phone Number LAB[facility]ORY [facility] [address] [place] [address] documented in this encounter Visit Diagnoses Diagnosis Iron deficiency anemia due to chronic blood loss- Primary Iron deficiency anemia secondary to blood loss (chronic) documented in this encounter Care Teams Air Drier Machine Operator Relationship Specialty Start Date End Date [place] TREVOR Alfaro [address] [place] [address] PCP - General Physician Utility Worker Forge 04/27/22 documented as of this encounter
--- OUTSIDE RECORDS SUMMARY | 2023-11-15 01:39 | External Medical Summary | Summary of Care ---
Author Name Unknown Organization [facility] Address [address] [place] [address] Phone [phone] Care Team Providers Care Video Rental Clerk Name Role Phone Diann Bojorquez PA-C Primary Care Provider [phone] Reason for Visit * Reason Onset Date Comments Appointment 09/12/2023 Treatment Encounter Details Date Type Department Care Team ([facility] st Contact Info) Description 09/12/2023 Telephone Access Center, [place] [address] [facility] *DO NOT REMOVE THIS DEPARTMENT* [place] [address] Services, Scheduling [address] [place] [address] Appointment (Treatment) Allergies Active Allergy Reactions Criticality [...] her call to help herscheduled those infusions. [phone] documented in this encounter Plan of Treatment Upcoming Encounters Date Type Department Care Team (Late st Contact Info) Description 10/16/2023 5:00 PM EST Telemedicine Hematology/Oncology [facility] [address] [facility] [place] [address] Alia Leonard CRNP [address] [place] [address] 10/22/2023 8:40 AM EST Office Visit Family Practice [facility] [place] [address] [facility] [place] [address] Diann Bojorquez PA-C [address] [facility] [place] [address] Pending Results Name Type Priority Associated Diagnoses Date /Time CBC WITH WBC DIFFERENTIAL Lab STAT Iron deficiency anemia due to chronic blood loss 09/14/2023 9:45 AM EST FERRITIN Lab STAT Iron deficiency anemia due to chronic blood loss 09/14/2023 9:45 AM EST IRON SCREEN, INCLUDING TIBC Lab STAT Iron deficiency anemia due to chronic blood loss 09/14/2023 9:45 AM EST Scheduled Orders Name Type Priority Associated Diagnoses Orde r Schedule CBC WITH WBC DIFFERENTIAL Lab STAT Iron deficiency anemia due to chronic blood loss Expected: 09/12/2023 (Approximate), Expires: 09/12/2024 FERRITIN Lab STAT Iron deficiency anemia due to chronic blood loss Expected: 09/12/2023 (Approximate), Expires: 09/12/2024 IRON SCREEN, INCLUDING TIBC Lab STAT Iron deficiency anemia due to chronic blood loss Expected: 09/12/2023 (Approximate), Expires: 09/12/2024 Health Maintenance Due Date Last Done Comments [...] (chronic) documented in this encounter Care Teams Video Rental Clerk Relationship Specialty Start Date End Date [place] TREVOR Alfaro [address] [place] [address] PCP - General Physician Bearing Inspector 04/27/22 documented as of this encounter
--- OUTSIDE RECORDS SUMMARY | 2023-11-15 01:39 | External Medical Summary | Summary of Care ---
Author Name Unknown Organization [facility] Address [address] [place] [address] Phone [phone] Care Team Providers Care Boiler Cleaner Name Role Phone Diann Bojorquez PA-C Primary Care Provider [phone] Encounter Details Date Type Department Care Team (Late st Contact Info) Description 10/03/2023 2:00 PM [facility] [address] [place] [address] Diann Bojorquez PA-C 200 [facility] [place] [address] Moderate episode of recurrent major depressive disorder (HCC)*; Iron deficiency anemia due to chronic blood loss Allergies Active Allergy Reactions Criticality Noted Date Comments Morphine 03/28/2021 Other reaction(s): paranoia Shellfish Allergy Anaphylaxis High 11/27/2017 documented as of this encounter (statuses as of 10/03/2023) Medications Medication Sig Dispensed Refills Start Date [...] or chew. 30 Capsule 5 10/03/2023 Active Fluconazole 150 MG Oral Tablet (Diflucan) Take 1 Tablet by mouth once for 1 dose. 1 Tablet 0 08/06/2023 10/03/2023 Discontinued (Medication List Clean Up) documented as of this encounter (statuses as of 10/03/2023) Active Problems Problem Noted Date Diagnosed Date [...] as of this encounter (statuses as of 10/03/2023) Immunizations Name Administration Dates Next Due DTaP [...] on file documented as of this encounter Progress Notes * Diann Bojorquez PA-C - 10/03/2023 2:02 PM EST Images from the original note were not included. Patient location: HOME. I was in a hospital or clinic location. After connecting through televWaterford Battery Systemso,patient was verified with two unique identifiers. Patient (or authorized legal field sales representative) was then informed that this was a Telemedicine visit and being conducted confidentially over secure lines. Methods to assure confidentiality were taken. Patient acknowledged consent and understanding of pr ivacy and security of the Telemedicine visit. The patient agreed to participate. History of Present Illness Rina Ferro is a 37 year old female that presents for No chief complaint on file. Patient is a 37 year old female who presents for a follow up. Is seeing a counselor. Has been told that she is spiraling. Has been emotional; crying Problems with concentration Lack of interest Appetite diminished Sleep diminished Denies suicidal or homicidal ideation. Physical Exam There were no vitals filed for this visit. BP Readings from Last 3 Encounters: 09/21/23 122/86 04/05/23 128/80 10/27/22 121/76 Wt Readings from Last 3 Encounters: 04/05/23 69.9 kg (154 lb) 10/05/22 69.1 kg (152 lb 6.4 oz) 08/09/21 67.6 kg (149 lb) General: alert, healthy, no distress, well nourished, well developed, comfortable, and cooperative Head: Normocephalic, No masses, lesions, tenderness or abnormalities Eye Exam: PERRLA, extraocular movements intact, conjunctiva are pink and non- injected, sclera clear Lungs: chest symmetric with normal AP diameter, no chest deformities noted, normal respiratory rateand rhythm, diaphragmatic excursion normal I have reviewed the following results: None Assessment and Plan Moderate episode of recurrent major depressive disorder (HCC) (Primary) Iron deficiency anemia due to chronic blood loss Other orders - Venlafaxine HCl ER 37.5 MG Oral Capsule Extended Release 24 Hour (Effexor XR); Take 1 Capsule by mouth in the morning. Plus another 150 mg of effexer daily. Do not cut, crush or chew. Wrap-Up Time: I spent a total of 20-29 minutes (exact time 21 mins) on the date of service in preparation, delivery, and documentation of the care provided to Rina Ferro excluding any time spent in the performance of separately billed services. Telemedicine: Patient location: HOME. I was in a hospital or clinic location. After connecting through televideo,patient was verified with two unique identifiers. Patient (or authorized legal field sales representative) was then informed that this was a Telemedicine visit and being conducted confidentially over secure lines. Methods to assure confidentiality were taken. Patient acknowledged consent and understanding of pr ivacy and security of the Telemedicine visit. The patient agreed to participate. documented in this encounter Plan of Treatment Upcoming Encounters Date Type Department Care Team (Late st Contact Info) Description 10/05/2023 2:30 PM EST Hem/Onc Treatment Hematology/Oncology Treatment, [place] [address] [place] [address] [place], Chair 8 Hem Onc Scene 200 [place] [address] 10/16/2023 5:00 PM EST Telemedicine Hematology/Oncology [facility] [place] 200 [facility] [place] [address] Alia Leonard CRNP 400 [facility] [place] [address] 10/19/2023 8:30 AM EST Hem/Onc Treatment Hematology/Oncology Treatment, [place] 200 [facility] [place] [address] [place], Chair 11 Hem Onc [address] [place] [address] 10/22/2023 8:40 AM EST Office Visit Family Practice [facility] [place] 200 [facility] [place] [address] Diann Bojorquez PA-C 200 [facility] [place] [address] 11/16/2023 8:00 AM EST Laboratory Laboratory, [place] [address] [place] [phone] [place], Laboratory [address] [place] [address] Health Maintenance Due Date Last Done Comments [...] as of this encounter Visit Diagnoses Diagnosis Moderate episode of recurrent major depressive disorder (HCC)- Primary Iron deficiency anemia due to chronic blood loss Iron deficiency anemia secondary to blood loss (chronic) documented in this encounter Care Teams Boiler Cleaner Relationship Specialty Start Date End Date [place] Diann Dominic, TREVOR [address] [place] [address] PCP - General Physician Wood Type Finisher 04/27/22 documented as of this encounter
--- OUTSIDE RECORDS SUMMARY | 2023-11-15 01:39 | External Medical Summary | Summary of Care ---
Author Name Unknown Organization [facility] Address [address] [place] [address] Phone [phone] Care Team Providers Care Robotic Technician Name Role Phone Diann Bojorquez PA-C Primary Care Provider [phone] Reason for Visit * Reason Onset Date Comments Appointment 09/12/2023 Treatment Encounter Details Date Type Department Care Team ([facility] st Contact Info) Description 09/12/2023 Telephone Access Center, [place] [address] [facility] *DO NOT REMOVE THIS DEPARTMENT* [place] [address] Services, Scheduling [address] [place] [address] Appointment (Treatment) Allergies Active Allergy Reactions Criticality [...] encounter Miscellaneous Notes * Telephone Encounter - Alie Arreola OSA [...] her call to help herscheduled those infusions. [phone] documented in this encounter Plan of Treatment Upcoming Encounters Date Type Department Care Team (Late st Contact Info) Description 10/16/2023 5:00 PM EST Telemedicine Hematology/Oncology [facility] 200 [facility] [place] [address] Alia Leonard CRNP [address] [place] [address] 10/22/2023 8:40 AM EST Office Visit Family Practice [facility] [place] 200 [facility] [place] [address] Diann Bojorquez PA-C 200 [facility] [place] [address] Pending Results Name Type Priority Associated Diagnoses [...] (chronic) documented in this encounter Care Teams Robotic Technician Relationship Specialty Start Date End Date [place] December TREVOR Alfaro [address] [place] [address] PCP - General Physician Publishing Editor 04/27/22 documented as of this encounter
--- OUTSIDE RECORDS SUMMARY | 2023-11-15 01:39 | External Medical Summary ---
Author Name Unknown Address Unknown Organization K01:[facility] [place] [address] Laboratory Report Ordering Provider Test Date Status JORGE TOMPKINS 09/14/2023 09:45:30 Final Observation Date Value Abnormality Reference (Units ) Status SYNC LEUKOCYTES IN BLOOD BY AUTOMATED COUNT 09/14/2023 09:45:30 6.25 4.00-10.80 (K/uL) Final Segs 09/14/2023 09:45:30 69.7 40.0-75.0 (%) Final Lymphs % 09/14/2023 09:45:30 19.0 18.0-42.0 (%) Final Monos 09/14/2023 09:45:30 6.9 1.0-11.0 (%) Final Eosinophils 09/14/2023 09:45:30 3.0 0.0-6.0 (%) Final Basos 09/14/2023 09:45:30 0.8 0.0-2.0 (%) Final Immature Granulocyte, Percent 09/14/2023 09:45:30 0.6 0.0-2.0 (%) Final Absolute Segs 09/14/2023 09:45:30 4.35 1.80-7.70 (K/uL) Final Lymphs, absolute 09/14/2023 09:45:30 1.19 1.00-4.80 (K/ul) Final Monos, Abs 09/14/2023 09:45:30 0.43 0.00-1.10 (K/uL) Final Eos, Abs 09/14/2023 09:45:30 0.19 0.00-0.70 (K/uL) Final Basos, Abs 09/14/2023 09:45:30 0.05 0.00-0.20 (K/uL) Final Immature Granulocytes, Number 09/14/2023 09:45:30 0.04 0.00-0.20 (K/uL) Final Performing Location LABORATORY [facility] - [address] [facility] [address]
--- OUTSIDE RECORDS SUMMARY | 2023-11-15 01:40 | External Medical Summary | Summary of Care ---
Author Name Unknown Organization [facility] Address [address] [place] [address] Phone [phone] Care Team Providers Care Cartography Supervisor Name Role Phone Diann Bojorquez PA-C Primary Care Provider [phone] Reason for Visit * Reason Onset Date Comments Appointment 09/12/2023 Treatment Encounter Details Date Type Department Care Team ([facility] st Contact Info) Description 09/12/2023 Telephone Access Center, [place] [address] [facility] *DO NOT REMOVE THIS DEPARTMENT* [place] [address] Services, Scheduling [address] [place] [address] Appointment (Treatment) Allergies Active Allergy Reactions Criticality Noted Date Comments Morphine 03/28/2021 Other reaction(s): paranoia Shellfish Allergy Anaphylaxis High 11/27/2017 documented as of this encounter (statuses as of 09/13/2023) Medications Medication Sig Dispensed Refills Start Date [...] as of this encounter (statuses as of 09/13/2023) Active Problems Problem Noted Date Diagnosed Date [...] as of this encounter (statuses as of 09/13/2023) Immunizations Name Administration Dates Next Due DTaP [...] encounter Miscellaneous Notes * Telephone Encounter - Mandie Lara RN [...] her call to help herscheduled those infusions. [phone] documented in this encounter Plan of Treatment Upcoming Encounters Date Type Department Care Team (Late st Contact Info) Description 10/16/2023 5:00 PM EST Telemedicine Hematology/Oncology [place] [facility] [address] Alia Leonard CRNP [address] [place] [address] 10/22/2023 8:40 AM EST Office Visit Family Practice [place] [address] [place] [address] Diann Bojorquez PA-C [address] [place] [address] Scheduled Orders Name Type Priority Associated Diagnoses [...] (chronic) documented in this encounter Care Teams Cartography Supervisor Relationship Specialty Start Date End Date [place] December Dominic, TREVOR [address] [place], [place] [address] PCP - General Physician Supervisor Product Inspection 04/27/22 documented as of this encounter
--- OUTSIDE RECORDS SUMMARY | 2023-11-15 01:40 | External Medical Summary ---
Author Name Unknown Address Unknown Organization [id number]:LABORATORY [facility] - [address] [place] [address] Laboratory Report Ordering Provider Test Date Status LEDAJORGE 09/14/2023 09:45:30 Final Observation Date Value Abnormality Reference (Units ) Status Ferritin 09/14/2023 09:45:30 34 13-150 (ng /mL) Final Performing Location LABORATORY C - [address] [place] [address]
--- OUTSIDE RECORDS SUMMARY | 2023-11-15 01:40 | External Medical Summary | Summary of Care ---
Author Name Unknown Organization [facility] Address [address] [place] [address] Phone [phone] Care Team Providers Care Route Delivery Clerk Name Role Phone Diann Bojorquez PA-C Primary Care Provider [phone] Reason for Visit * Reason Comments Outpatient Testing Encounter Details Date Type Department Care Team (Late st Contact Info) Description 09/06/2023 8:00 AM EST Laboratory Laboratory, [place] [address] [place] [phone] [place], Laboratory [address] [place], [place] [address] examination or test, unconfirmed* Allergies Active Allergy Reactions Criticality Noted Date Comments Morphine 03/28/2021 Other reaction(s): paranoia Shellfish Allergy Anaphylaxis High 11/27/2017 documented as of this encounter (statuses as of 09/06/2023) Medications Medication Sig Dispensed Refills Start Date [...] as of this encounter (statuses as of 09/06/2023) Active Problems Problem Noted Date Diagnosed Date [...] as of this encounter (statuses as of 09/06/2023) Immunizations Name Administration Dates Next Due DTaP [...] Description 10/16/2023 5:00 PM EST Telemedicine Hematology/Oncology [address] [place] [address] Alia Leonard CRNP 400 [place] [address] 10/22/2023 8:40 AM EST Office Visit Family Practice [address] [place] [address] Diann Bojorquez PA-C [address] [place] [address] [place] [address] Pending Results Name Type Priority Associated Diagnoses Date /Time BETA-HCG, QUANTITATIVE Lab Routine examination or test, unconfirmed 09/06/2023 8:12 AM EST Scheduled Orders Name Type Priority Associated Diagnoses Orde r Schedule BETA-HCG, QUANTITATIVE Lab Routine examination or test, unconfirmed Expected: 09/06/2023, Expires: 09/06/2024 Health Maintenance Due Date Last Done Comments [...] as of this encounter Visit Diagnoses Diagnosis examination or test, unconfirmed- Primary documented in this encounter Care Teams Route Delivery Clerk Relationship Specialty Start Date End Date [place] December TREVOR Alfaro [address] [place] [address] PCP - General Physician Debit Agent 04/27/22 documented as of this encounter
--- OUTSIDE RECORDS SUMMARY | 2023-11-15 01:40 | External Medical Summary | Summary of Care ---
Author Name Unknown Organization [facility] Address [address] [place] [address] Phone [phone] Care Team Providers Care Sack Lifter Name Role Phone Diann Bojorquez PA-C Primary Care Provider [phone] Reason for Visit * Reason Comments Outpatient Testing Encounter Details Date Type Department Care Team (Late st Contact Info) Description 09/06/2023 8:00 AM EST Laboratory Laboratory, [place] [address] [place] [phone] [place], Laboratory [address] [place], [place] [phone] examination or test, unconfirmed* Allergies Active Allergy [...] Description 10/16/2023 5:00 PM EST Telemedicine Hematology/Oncology [address] [place] [address] Alia Leonard CRNP 400 [place] [address] 10/22/2023 8:40 AM EST Office Visit Family Practice [address] [place] [address] Diann Bojorquez PA-C [address] [place] [address] [place] [address] Pending Results Name Type Priority Associated Diagnoses [...] Primary documented in this encounter Care Teams Sack Lifter Relationship Specialty Start Date End Date [place] December TREVOR Alfaro [address] [place] [address] PCP - General Physician Equine Vet 04/27/22 documented as of this encounter
--- OUTSIDE RECORDS SUMMARY | 2023-11-15 01:40 | External Medical Summary ---
Author Name Unknown Address Unknown Organization K01:LABORATORY [address] [facility] [address] Laboratory Report Ordering Provider Test Date Status DALLIN RODRIGUES 09/06/2023 08:12:31 Final hCG can serve as a screening assay for . However, early may not give a positive hCG test result. In addition, some non- women may have a hCG result slightly higher than the reference limit. Careful interpretation of the hCG with clinical history is required to determine whether the patient may be . Observation Date Value Abnormality Reference (Units ) Status Choriogonadotropin.intact +Beta subunit [Units/volume] in Serum or Plasma 09/06/2023 08:12:31 <0.6 <=1.0 (mIU/mL) Final Performing Location LABORATORY [place] [address] [address] [facility] [address]
[2023-11-15] MEDS: hydrOXYzine HCl 25 MG TAB PO PRN (08:14)
[2023-11-15] MEDS: CETIRIZINE HCL 10 MG TABLET PO SCH (11:02)
[2023-11-15] MEDS: ARIPiprazole 5 MG TAB PO SCH (11:02)
[2023-11-15] MEDS: VENLAFAXINE HCL XR 75 MG CAPXR PO SCH (11:03)
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
[2023-11-16 08:15] LABS: Chol HDL Ratio 3.3 (0-5)
[2023-11-16] MEDS: PRENATAL VITAMIN 1 TAB PO SCH (08:40)
--- NOTE | 2023-11-16 09:47 | Psychiatric Progress Note ---
Date of Service November 16, 2023 Impression / Recommendations Impression 37 yo female presenting with 3rd or 4th episode of MDD, although she is not expressing SI, she significant vegetative symptoms that impact her ability to work and even communicate with her family. She has marked psychosocial stressors and has failed outpatient attempts at medication management and therapy. She notes some longstanding benefit from Effexor XR and confirmed her current dose of 225 mg. She has been on higher doses before but at this point, given failure of 1 SSRI, would prefer to continue with an augmentation strategy. 11/16/23: improving (less obsessive, brighter) Overall, I spent a total of 37 minutes with this case, including review of chart, direct evaluation of the patient, counseling the patient, reviewing labs, coordination with nursing/treatment team, and documentation. (1) Major depression, recurrent: Plan 11/16/2023: continue current medication and treatment plan, family meeting 11/15/2023: The patient was admitted to the [facility] ([facility]) on q15 min checks (behavioral with suicide precautions) for safety. The patient will participate in group, recreational, and milieu therapies and will be offered additional individual and family sessions as clinically appropriate. Risks/benefits/alternatives reviewed re: Ativan prn, Buspar trial, or Abilify. Patient prefers the latter for treatment refractory depression. She is not actively planning to become until her condition and family situation are more settled. We did review risks/benefits of antidepressants vs. Abilify during , the latter having more metabolic warnings/less studied than SSRIs, etc. Patient desires atypical trial for fast action. Metabolic labs for am and reviewed need to monitor for muscle movements. Inventory Assets Strengths: help seeking, responsible, family oriented Needs: utilize social support, cognitive techniques Suicide Risk Level Suicide Risk Level: Moderate (q15 min suicide checks) Risk Factors Assessment : Yes Do You Have Access To A Gun?: Yes ( has a gun, not secured but patient doesnt know how to use it) Health Problems: Yes Mental Health Diagnoses: Yes Substance Use Disorders: No Previous Attempt: No Family History of Suicide: No Previous Psychiatric Hospitalization: No Protective Factors Assessment : Yes Employed: Yes ([employer]) Stable Relationships: Yes Supportive Family: Yes Interval History Identifying Information EVA PAYNE is a 37-year-old F who currently lives in [place], has a history of major depressive episodes, and was admitted on 11/14/23 16:49 on a 201 voluntary commitment for inability to function. Chief Complaint "I felt calmer about some things". Review of Systems Sleep Information Total Hours of Sleep: 6.45 Meal Information Percent Meal Consumed - Breakfast: 75 Percent Meal Consumed - Lunch: 50 Percent Meal Consumed - Dinner: 70 Subjective Subjective Patient was seen & assessed and interval progress reviewed with treatment team. The patient visited with and father. [place] she was able to attend to TV but "not work" remains undecided re: taking time off. Family is supportive. Tolerating Abilify with only some mild N. Physical Exam Psychiatric Orientation: alert and oriented x 3 Apperance: appropriately dressed and appropriately groomed Eye Contact: good eye contact Motor Behavior: no abnormal motor movements Speech: normal rate/rhythm/volume of speech Affect: + depressed affect Mood: + depressed mood Thought Process: goal directed thought process Thought Content: reality based without delusions Suicidal Thoughts: denies suicidal thoughts Homicidal Thoughts: denies homicidal thoughts Hallucinations: no auditory hallucinations and no visual hallucinations Cognition: attention grossly intact and language grossly intact Estimated Intelligence: consistent with education level Vital Signs (Past 24 Hours) Last Vital Signs Temp 36.0 C L 11/16/23 06:00 Pulse 109 H 11/16/23 06:26 Resp 16 11/16/23 06:00 BP 99/61 L 11/16/23 06:26 Pulse Ox 99 11/14/23 17:37 O2 Del Method Room Air 11/14/23 17:37 Results & Data ([facility]) Laboratory Results Laboratory Results - last 24 hr 11/16/23 07:32 Fasting Glucose 89 Iron 205 H TIBC 376 Unsaturated IBC 171 Transferrin % Sat 55 H Triglycerides 104 Cholesterol 129 LDL Cholesterol, Calc 69 VLDL Cholesterol, Calc 21 HDL Cholesterol 39 Cholesterol/HDL Ratio 3.3 Current Inpatient Medications Current Inpatient Medications: Current Inpatient Medications Acetaminophen (Acetaminophen 325 Mg Tab) 650 mg PO Q4H PRN PRN Reason: Headache or Minor Fever Stop: 12/14/23 16:48 Al Hydrox/Mg Hydrox/Simethicone (Aluminum/Magnesium Susp 30 Ml Udc) 30 ml PO Q4H PRN PRN Reason: GI Upset Stop: 12/14/23 16:48 Aripiprazole (Aripiprazole 5 Mg Tab) 2.5 mg PO QAM LORY Stop: 12/15/23 09:59 Last Admin: 11/16/23 08:38 Dose: 2.5 mg Bismuth Subsalicylate (Bismuth Subsalicylate Liqd 236 Ml) 15 ml PO PRN PRN PRN Reason: Loose Stool Stop: 12/14/23 16:48 Cetirizine HCl (Cetirizine Hcl 10 Mg Tablet) 10 mg PO QAM LORY Stop: 12/15/23 09:59 Last Admin: 11/16/23 08:39 Dose: 10 mg Hydroxyzine HCl (Hydroxyzine Hcl 25 Mg Tab) 50 mg PO HSZ PRN PRN Reason: Insomnia Stop: 12/14/23 16:48 Hydroxyzine HCl (Hydroxyzine Hcl 25 Mg Tab) 25 mg PO Q4H PRN PRN Reason: Anxiety Stop: 12/14/23 16:48 Last Admin: 11/15/23 08:14 Dose: 25 mg Magnesium Hydroxide (Magnesium Hydroxide Susp 30 Ml Udc) 30 ml PO DAILY PRN PRN Reason: Constipation Stop: 12/14/23 16:48 Prenat Multivit/[place]/Iron/Folic Ac ( Vitamin 1 Tab) 1 tab PO QAM LORY Stop: 12/16/23 08:59 Last Admin: 11/16/23 08:40 Dose: 1 tab Sodium Chloride (Sodium Chloride 0.65% Na Soln 45 Ml ([place])) 1 - 2 sprays NA PRN PRN PRN Reason: Nasal Dryness/Congestion Stop: 12/14/23 16:48 Venlafaxine HCl (Venlafaxine Hcl Xr 75 Mg Capxr) 225 mg PO QAM LORY Stop: 12/15/23 09:59 Last Admin: 11/16/23 08:40 Dose: 225 mg Mental Health & Subst Abuse Tx Therapist Name of Therapist: Kathi Lamar Software Implementation Project Manager Name of Software Implementation Project Manager: None Post Discharge Appointments Primary Care Physician Name Of Family Doctor/PCP: JACEY Benitez
[2023-11-17] MEDS: hydrOXYzine HCl 25 MG TAB PO PRN (01:11)
--- NOTE | 2023-11-17 09:24 | Discharge Summary ---
Date of Service November 17, 2023 History of Present Illness On admission the patient's family was very concerned about her. On the day of admission patient's mom went to her house she reports that patient was so upset she was not able to communicate. "Pt has hx of anxiety and depression but reports that her depression has "taken over her life". She feels as though her head is in a constant state of worry. She becomes obsessed and worried about simple things and cannot get past it. Pt has had some intense stressors recently including two miscarriages. She and her have been trying to conceive a baby for some time and have not been successful. In September her had back surgery and lost his job because he did not have enough sick time to cover his absence. Most recently her sister had her foster child, whom she had for two years, taken out of the home and placed back with the parents. Pt states this loss has been significant and she really started to spiral after that happened. Pt has a therapist, Kathi Lamar who she sees monthly. She has no psychiatrist, her PCP prescribes her Effexor that she has been taking as prescribed. Pt has no hx of SI/HI. Pt works at the [employer] ([employer]) but has not been able to work her required hours and even when she is at work sh e is unable to focus or perform at her normal level of competency. No hx of drug or alcohol use. She reports that her sleep is broken and her appetite is decreased. Pt's affect is very flat. Pt is requesting inpatient treatment at this time. Rina reports additional family stressors in that her father in law with dementia was living with them until Oct 24 when left to stay with his other son which as resulted in worries around his finances as is still POA and on accounts. 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 She feels more anxious when can't think and feels pr essure as currently 1 income household." Physical Exam Psychiatric A+Ox3, euthymic affect Orientation: oriented x 3 Apperance: appropriately dressed, appropriately groomed and appeared stated age Eye Contact: good eye contact Motor Behavior: steady gait and station and no abnormal motor movements Speech: normal rate/rhythm/volume of speech Affect: euthymic affect and mood congruent with affect Thought Process: goal directed thought process, linear/logical thought process and clear/coherent thought process Thought Content: reality based without delusions; no obsessions and no cognitive distortions Suicidal Thoughts: denies suicidal thoughts, denies suicidal plan and denies suicidal intent Homicidal Thoughts: denies homicidal thoughts, denies homicidal plan and denies homicidal intent Hallucinations: no auditory hallucinations, no visual hallucinations and no tac tile hallucinations Cognition: recent memory grossly intact, remote memory grossly intact, attention grossly intact and language grossly intact Estimated Intelligence: consistent with education level Insight: good insight Judgment: good judgement Vital Signs (Past 24 Hours) Last Vital Signs Temp 36.7 C 11/17/23 06:32 Pulse 116 H 11/17/23 06:33 Resp 16 11/17/23 06:32 BP 103/65 11/17/23 06:33 Pulse Ox 99 11/14/23 17:37 O2 Del Method Room Air 11/14/23 17:37 Principal Diagnosis Major Depressive disorder, recurrent, severe, without psychotic features Psychiatric Data Patient tolerated the medication adjustments well and improved steadily throughout her stay. She participated in the milieu. In short, safety was rochelle ntained and the patient was cooperative with care. Medication changes included adding Abilify and they tolerated this well. A family session was yesterday and safety plan was completed prior to discharge. Day of Discharge Assessment Today the patient voices readiness for discharge. She note improvement in mood and deny thoughts to harm self or others. Thoughts remain organized and they are improved from admission. There is no evidence of psychosis. She agree to take mediations as prescribed and keep follow-up appointments. They are stable for discharge to outpatient level of care. Transition of Care Transition Of Care Record: was reviewed with the patient Advance Directives Advance Directives Information Provided: Yes Advance Directives: No Mental Health Advance Directive: No Advance Directives on File: No Living Will: No Power of Manager Drilling: No Advance Directives Reason:: Declines as Mental Health Visit. Suicide Risk Level Suicide Risk Level: Low (q15 min observation checks) Risk Factors Assessment Male: No : Yes Do You Have Access To A Gun?: Yes ( has a gun, not secured but patient doesnt know how to use it) Health Problems: Yes Mental Health Diagnoses: Yes Substance Use Disorders: No Previous Attempt: No Family History of Suicide: No Previous Psychiatric Hospitalization: No Protective Factors Assessment : Yes Employed: Yes ([employer]) Stable Relationships: Yes Supportive Family: Yes Good Rapport with Provider: Yes Antipsychotic Medications Patient is prescribed Abilify as an anti-depressant augmentation not as an antipsychotic. Total Time Total Time Spent: Greater Than 30 Minutes Total Time Includes: Discharge Planning and Medication Reconciliation Discharge Data Lab Results 11/14/23 11/14/23 11/14/23 12:44 13:16 Unknown WBC 7.00 RBC 4.66 Hgb 14.4 Hct 42.6 MCV 91.4 MCH 30.9 MCHC 33.8 RDW Std Deviation 44.7 RDW Coeff of Kieran 13.3 Plt Count 374 MPV 12.0 Immature Gran % (Auto) 0.3 Neut % (Auto) 69.9 Lymph % (Auto) 20.9 Hardy % (Auto) 8.0 Eos % (Auto) 0.6 Baso % (Auto) 0.3 Neut # (Auto) 4.90 Lymph # (Auto) 1.46 Hardy # (Auto) 0.56 Eos # (Auto) 0.04 Baso # (Auto) 0.02 Immature Gran # (Auto) 0.02 Sodium 139 Potassium 3.7 Chloride 103 Carbon Dioxide 29 Anion Gap 7 BUN 11 Creatinine 0.75 Est Cr Clr Drug Dosing 99.9 Est GFR ( Amer) 118.0 Est GFR (Non-Af Amer) 101.8 BUN/Creatinine Ratio 14.7 Glucose 89 Fasting Glucose Calcium 9.6 Iron TIBC Unsaturated IBC Transferrin % Sat Total Bilirubin 0.3 AST 14 ALT 10 Alkaline Phosphatase 61 Total Protein 7.7 Albumin 4.8 Globulin 2.9 Albumin/Globulin Ratio 1.7 Triglycerides Cholesterol LDL Cholesterol, Calc VLDL Cholesterol, Calc HDL Cholesterol Cholesterol/HDL Ratio TSH 1.936 HCG, Qual Negative Urine Color Yellow Urine Appearance Clear Urine pH 6.0 Ur Specific [place] 1.008 Urine Protein Negative Urine Glucose (UA) Negative Urine Ketones Negative Urine Blood Negative Urine Nitrite Negative Urine Bilirubin Negative Urine Urobilinogen Negative Ur Leukocyte Esterase Negative Salicylates < 3.0 L Urine Opiates Screen Neg Ur Methadone, Qual Neg Acetaminophen < 3 L Urine Barbiturates Neg Ur Phencyclidine (PCP) Neg U Amphetamin/Meth Scrn Neg MDMA (Ecstasy) Screen Neg U Benzodiazepines Scrn Neg Ur Cocaine Metabolite Neg U Marijuana (THC) Screen Neg Ethyl Alcohol mg/dL < 10.0 SARS-CoV-2, RNA, NAAT NEGATIVE 11/16/23 07:32 WBC RBC Hgb Hct MCV MCH MCHC RDW Std Deviation RDW Coeff of Kieran Plt Count MPV Immature Gran % (Auto) Neut % (Auto) Lymph % (Auto) Hardy % (Auto) Eos % (Auto) Baso % (Auto) Neut # (Auto) Lymph # (Auto) Hardy # (Auto) Eos # (Auto) Baso # (Auto) Immature Gran # (Auto) Sodium Potassium Chloride Carbon Dioxide Anion Gap BUN Creatinine Est Cr Clr Drug Dosing Est GFR ( Amer) Est GFR (Non-Af Amer) BUN/Creatinine Ratio Glucose Fasting Glucose 89 Calcium Iron 205 H TIBC 376 Unsaturated IBC 171 Transferrin % Sat 55 H Total Bilirubin AST ALT Alkaline Phosphatase Total Protein Albumin Globulin Albumin/Globulin Ratio Triglycerides 104 Cholesterol 129 LDL Cholesterol, Calc 69 VLDL Cholesterol, Calc 21 HDL Cholesterol 39 Cholesterol/HDL Ratio 3.3 TSH HCG, Qual Urine Color Urine Appearance Urine pH Ur Specific [place] Urine Protein Urine Glucose (UA) Urine Ketones Urine Blood Urine Nitrite Urine Bilirubin Urine Urobilinogen Ur Leukocyte Esterase Salicylates Urine Opiates Screen Ur Methadone, Qual Acetaminophen Urine Barbiturates Ur Phencyclidine (PCP) U Amphetamin/Meth Scrn MDMA (Ecstasy) Screen U Benzodiazepines Scrn Ur Cocaine Metabolite U Marijuana (THC) Screen Ethyl Alcohol mg/dL SARS-CoV-2, RNA, NAAT Hospital Course (1) Major depression, recurrent: Plan 11/16/2023: continue current medication and treatment plan, family meeting 11/15/2023: The patient was [facility] on q15 min checks (behavioral with suicide precautions) for safety. The patient will participate in group, recreational, and milieu therapies and will be offered additional individual and family sessions as clinically appropriate. Risks/benefits/alternatives reviewed re: Ativan prn, Buspar trial, or Abilify. Patient prefers the latter for treatment refractory depression. She is not actively planning to become until her condition and family situation are more settled. We did review risks/benefits of antidepressants vs. Abilify during , the latter having more metabolic warnings/less studied than SSRIs, etc. Patient desires atypical trial for fast action. Metabolic labs for am and reviewed need to monitor for muscle movements. Mental Health & Subst Abuse Tx Psychiatrist Name of Psychiatrist: Irineo Franklin Psychiatrist's Date Of Appointment With Psychiatric Provider: 11/20/2023 Time of Appointment with Psychiatrist: 1:30pm Psychiatric Appointment Comment: [address] [place] [address] Therapist Name of Therapist: Kathi Fox Therapist's Date of Therapist Appointment: 11/20/2023 Time of Therapist Appointment: 9am (confirm this is the correct time) Therapy Appointment Comment: [address], [place] [id number] Mussel Farmer Name of Mussel Farmer: None Post Discharge Appointments Primary Care Physician Name Of Family Doctor/PCP: JACEY Cronin [facility] Date of Future Appointment with PCP: 11/29/2023 Time of Appointment with PCP: 5:45pm arrival time for 6pm appointment Provider Appointment Comment: [address], [place] [address] Contact Information Discharge Discharge Address: [address] [place] [id number] Discharge Plan Discharge Items Patient Disposition: Home - Self-Care Reason For Visit: MAJOR DEPRESSIVE DISORDER Discharge Diagnosis: same Condition on Discharge: Good Health Concerns: Patient is aware of the importance of follow up to maintain and improver her mental status. She knows that a combination of medications and therapy are the gold standard for treatment of depression. Goals: Continue improvement of mood and management of life stressors. Activity: Resume your previous activity Bathing: No limitations Sexual Activity: When tolerated Exercise/Sports: As tolerated Driving/Machine Use: No limitations Weightbearing: Full weightbearing Non-emergency contact: Primary Care Provider, Psychiatrist and Therapist Call non-emergency contact if: you have any medication questions and your symptoms worsen Follow-up/Referrals: Diann Bojorquez PA-C [Primary Care Provider] - Diet: Regular Addtl Attending Provider Instructions: SPECIAL CARE INSTRUCTIONS: 1. Follow through with your scheduled aftercare appointments. If unable to keep an appointment, please call to reschedule. 2. Take your medication only as prescribed. Medication should not be changed or stopped without the approval of your doctor. In the event of worsening symptoms or concerns about side effects, contact your doctor immediately. 3. Utilize new healthy coping skills, anger management skills, and stress management skills learned during your hospitalization. Journal feelings and process them with a support person. Identify stressors or situations that may result in relapse, deterioration or inappropriate behaviors and develop a plan to deal with those issues. 4. If your coping skills are ineffective and you are in crisis, contact your outpatient providers for direction. If unable to reach your providers, please call the [facility] CRISIS LINE AT , go to the [facility] walk-in center at [address], [address], [place], or go to the closest Emergency Room. 5. Avoid alcohol and un-prescribed drugs. 6. You have been provided with the Mental Health Advance Directives Pamphlet for your review. 7. Your condition is stable for discharge to outpatient level of care, but recovery is an ongoing process. Ifthoughts to harm yourself or others return, follow the safety plan developed during your stay. Planning for a safe return home includes securing weapons. Our treatment team recommends weaponsbe removed from the home until your outpatient provider reassesses your progress. In rare cases where the items themselvescannot be removed, guns and ammunitionshould be secured separatelyand keys stored by a reliable personoutside of the home. If you were admitted on an involuntary commitment, the police or other legal authorities may be involved in this process. AFTERCARE APPOINTMENTS: * Please call your insurance company prior to your scheduled appointment to confirm your aftercare providers are covered. Take your insurance information to your appointments. WHO TO CALL AND WHEN: Medical Emergencies: For questions or emergencies related to your hospital stay, please contact the Inpatient Behavioral Health Unit at [phone]. A armor reconnaissance vehicle crewman is on-call 02/04 for the Behavioral Health Unit for emergencies At any time you feel your situation is an emergency, you may also call 911 immediately. Pending Studies at Discharge: No Stand-Alone Forms: My Passenger Baggage Xpress, Work/School Release, Smoking Cessation Medications and DC Order Prescriptions: New aripiprazole [Abilify] 5 mg Tablet 2.5 mg PO QAM Qty: 15 0RF Continued Zyrtec 10 mg capsule 10 mg PO DAILY PRN (Reason: Allergy Symptoms) prenat.vits,hollie,[id number] Tablet 1 tab PO QAM venlafaxine [Effexor XR] 75 mg capsule,extended release 24hr 75 mg PO QAM venlafaxine 150 mg capsule,extended release 24hr PO Discharge Orders: Discharge Order (Routine); Ordered 11/17/23 Ordered By: Lidia Mayorga Admission Data Admit Date/Time: 11/14/23 16:49 Attending Provider: Lidia Mayorga Admit Provider: Jessika Alexander Primary Care Provider: Diann Bojorquez Other Interventions: PSY Interdisciplinary Discharge Planning Last Done: 11/17/23 09:20 [place] [address] D/C day mgmt > 30 min Patient Type Established Medical Decision Making Low Complexity Diagnoses Major depression, recurrent F33.9 Time Spent (min) 45
== END 2023-11-17 10:56 | disposition home or self-care (01) | DRG 885 ==
LOC: ED 12:23 → 3S 16:49 → SUATTDRO 16:49 → 3S 17:10

== ENCOUNTER 2024-03-01 23:20 | Inpatient (IN) ==
[2024-03-01 23:48] LABS: Basophils # (auto) 0.06 K/uL (0.00-0.20); Basophils % (auto) 0.4 %; Eosinophils # (auto) 0.27 K/uL (0.00-0.50); Eosinophils % (auto) 1.9 %; Immature Granulocytes # (auto) 0.05 K/uL (0.01-0.20); Immature Granulocytes % (auto) 0.4 %; Lymphocytes # (auto) 3.99 K/uL (1.20-3.40); Lymphocytes % (auto) 28.8 %; Mean Corpuscular Hemoglobin 31.8 pg (25.0-34.0); Mean Corpuscular Hgb Conc 34.3 g/dL (32.0-36.0); Mean Corpuscular Volume 92.8 fL (80.0-100.0); Mean Platelet Volume 11.8 fL (9.4-12.4); Monocytes # (auto) 0.89 K/uL (0.11-0.59); Monocytes % (auto) 6.4 %; Neutrophils # (auto) 8.59 K/uL (1.40-6.50); Neutrophils % (auto) 62.1 %; Platelet Count 161 K/uL (130-400); RDW Coefficient of Variation 12.5 % (11.5-14.5); RDW Standard Deviation 42.6 fL (36.4-46.3); Red Blood Count 3.77 M/uL (4.20-5.40); White Blood Count 13.85 K/ul (4.8-10.8)
[2024-03-01] MEDS: OPTIRAY 320 125ml IV ONE (23:48)
[2024-03-01] MEDS: fentaNYL citrate PF 100 MCG/2 ML VIAL ONE (23:51)
[2024-03-01] MEDS: SODIUM CHLORIDE 0.9% 1,000 ML IV SCH (23:52)
[2024-03-01] MEDS: ONDANSETRON INJ 2 MG/ML 2 ML VIAL IV STA (23:52)
[2024-03-01] MEDS ORDERED: SODIUM CHLORIDE 0.9% 250 ML IV PRN (23:57)
[2024-03-02 00:03] LABS: Alanine Aminotransferase 8 U/L (7-52); Albumin Globulin Ratio 1.8 (0.9-2); Albumin Level 4.2 gm/dl (3.4-5.0); Alkaline Phosphatase 46 U/L (34-104); Aspartate Aminotransferase 18 U/L (13-39); BUN Creatinine Ratio 13.3 (10-20); Bilirubin,Total 0.2 mg/dl (0.2-1.0); Blood Urea Nitrogen 12 mg/dl (6-23); Calcium 9.3 mg/dl (8.6-10.3); Chloride 103 mmol/L (98-107); Creatine Kinase 133 U/L (26-192); Creatinine Clr Calc Pharmacy 75.9 ml/min; Est GFR (Non-African American) 81.1 ml/min; Globulin 2.4 gm/dl (2.5-4.0); Glucose 178 mg/dl (70-99(Fasting)); Magnesium 2.1 mg/dl (1.7-2.4); Potassium 2.9 mmol/L (3.5-5.1); Sodium 136 mmol/L (136-145); Total Protein 6.6 gm/dl (6.0-8.3)
[2024-03-02 00:10] LABS: Troponin I High Sensitivity < 2.3 pg/ml (0-14)
[2024-03-02 00:14] LABS: Pregnancy Test, Serum Positive (Negative)
[2024-03-02 00:16] LABS: INR 1.3 (0.9-1.1)
[2024-03-02] MEDS ORDERED: fentaNYL citrate PF 100 MCG/2 ML VIAL IV PRN ×2 (00:17→03:01)
[2024-03-02] MEDS: FAMOTIDINE 20MG/5ML IV PUSH IV ONE (00:17)
[2024-03-02 00:18] LABS: Anion Gap 14 (3-11); Carbon Dioxide 19 mmol/L (21-32)
--- NOTE | 2024-03-02 00:19 | CT Scan Report ---
Exam(s): CTA CHEST IV Amt: 119 ml opti 320 EXAM: CT Angiography Chest With Intravenous Contrast CLINICAL HISTORY: Reason for exam: PE. TECHNIQUE: Axial computed tomographic angiography images of the chest with intravenous contrast. CTDI is 14.94 mGy and DLP is 1212.34 mGy-cm. Automated exposure control was utilized for the study. A dose lowering technique was utilized adhering to the principles of ALARA. MIP reconstructed images were created and reviewed. COMPARISON: None. FINDINGS: Pulmonary arteries: Unremarkable. No pulmonary embolism. Normal enhancement of the pulmonary arteries. Aorta: No acute findings. Normal aorta and no dissection or aneurysm. Lungs: There is an ovoid, left apical medial subpleural mass measuring 4.2 x 3.1 cm with heterogeneous enhancement concerning for neoplasm. No consolidation. Pleural space: Unremarkable. No significant effusion. No pneumothorax. Heart: Unremarkable. No cardiomegaly. No significant pericardial effusion. No evidence of RV dysfunction. Bones/joints: No acute fracture. No dislocation. Soft tissues: Unremarkable. Lymph nodes: Unremarkable. No enlarged lymph nodes. Intraperitoneal space: Abdomen reveals moderate to large ascites with high density concerning for hemorrhagic component. IMPRESSION: 1. No pulmonary embolus or dissection. 2. No acute cardiopulmonary disease. 3. High density ascites in the upper abdomen concerning for hemorrhagic component, please see accompanying CT of the abdomen and pelvis report. 4. Left apical subpleural mass with heterogeneous enhancement concerning for neoplasm, clinical correlation recommended. If indicated, further characterization recommended with PET scan evaluation to evaluate benign versus malignant process. Electronically signed by: Mikaela Plaza MD 03/02/24 00:19 AM
[2024-03-02 00:20] LABS: Thyroid Stimulating Hormone 12.668 uIu/ml (0.300-4.500)
--- NOTE | 2024-03-02 00:25 | CT Scan Report ---
Exam(s): CT ABDOMEN + PELVIS With Contrast IV Amt: 119 ml opti 320 EXAM: CT Abdomen and Pelvis With Intravenous Contrast CLINICAL HISTORY: Reason for exam: severe pain, syncope. TECHNIQUE: Axial computed tomography images of the abdomen and pelvis with intravenous contrast. CTDI is 14.94 mGy and DLP is 1212.34 mGy-cm. Automated exposure control was utilized for the study. A dose lowering technique was utilized adhering to the principles of ALARA. CONTRAST: Patient received 119 ml opti 320 of IV contrast COMPARISON: None. FINDINGS: Lung bases: Unremarkable. No mass. No consolidation. ABDOMEN: Liver: High density fluid surrounding the liver and spleen tracing into the left paracolic bladder with heterogeneous pattern along the left abdomen consistent with hemorrhagic fluid. There is active bleed along the left paracolic gutter exact origin indeterminate and possibly originating at the left adnexa. Gallbladder and bile ducts: Unremarkable. No calcified stones. No ductal dilation. Pancreas: Unremarkable. No mass. No ductal dilation. Spleen: See above. Adrenals: Unremarkable. No mass. Kidneys and ureters: Unremarkable. No solid mass. No hydronephrosis. Stomach and bowel: Unremarkable. No obstruction. No mucosal thickening. PELVIS: Appendix: No findings to suggest acute appendicitis. Bladder: See above. Reproductive: See above. ABDOMEN and PELVIS: Intraperitoneal space: There is anteverted uterus with nonspecific heterogeneous enlargement of the endometrium versus endometrial mass. There is a largely enhancing density within the right adnexa measuring 5. 0 x 4.5 cm. There is a Low-sodium cyst within the right adnexa measuring 2 cm. There is large amount of free fluid with heterogeneous high density concerning for hemorrhagic fluid within the pelvis including bilateral adnexal regions. No free air. Bones/joints: No acute fracture. No dislocation. Soft tissues: Unremarkable. Vasculature: Unremarkable. No abdominal aortic aneurysm. Lymph nodes: Unremarkable. No enlarged lymph nodes. IMPRESSION: Large free intraperitoneal abdominal and pelvic fluid with high density highly compatible with hemorrhagic fluid and significant amount of active bleed on the left. This originates at the level of the left adnexa. There is heterogeneous enlargement of the endometrium with masslike density. Careful correlation with patient's hCG measurements. If patient is positive hCG, findings could represent ruptured ectopic with active bleed. Given the likely origin of the bleeding related to the left adnexa, differential diagnosis includes AV malformation given intense enhancement of the bilateral ovaries, right than left, adnexal mass with ovarian torsion excluded. Recommend follow- up with [facility] consultation, characterization ultrasound and hCG measurements. Communications: Call Doctor Other Electronically signed by: Mikaela Plaza MD 03/02/24 00:24 AM
[2024-03-02] MEDS ORDERED: SODIUM CHLORIDE 0.9% 250 ML IV PRN ×2 (00:31→00:44)
--- NOTE | 2024-03-02 00:42 | OB/GYN Consultation ---
Date of Consultation March 02, 2024 Assessment & Plan (1) Hemoperitoneum: (2) Ruptured ectopic : Plan need to proceed urgently to OR. anesth and or team aware. they are arriving. pt aware that at this point I will need to proceed with xlap and will also plan D&E. risks reviewed. loss of uterus reviewed. loss of fertility reviewed. all routine risks reviewed. of note istat hgb was 12. History of Present Illness Reason for Consultation: hemoperitoneum, syncope Requesting Physician: Mady MURRAY Attending Physician: Edna Castaneda MD History of Present Illness 38yo with cc of severe pain who I am called to see in ER A1 urgently due to dx of hemoperitoneum. Pt has been following in office with suspected molar . Quant about [id number]. ER TREVOR called me after she brought her from waiting room, when pt was syncopal. Patient told her she was expecting D&E for suspected molar on sunday. She had blood in abdomen on bedside US. She is requiring fluid support, epi iv. and now 3 u PRBCs. She is talking to me. She has CT report ind icating likely right ectopic , with large amount of blood in belly. Rh pos. Allergies Allergy/AdvReac Type Severity Reaction Status Date / Time shellfish derived Allergy Mild Hives Verified 02/28/24 08:05 morphine AdvReac Mild paranoia Verified 02/28/24 08:05 Home Medications Medication Instructions Recorded Confirmed Type cetirizine 10 mg capsule (Zyrtec) 10 mg PO DAILY PRN Allergy Symptoms 10/13/22 02/28/24 History prenat.vits,hollie,[id number] 1 tab PO QAM 10/13/22 02/28/24 History venlafaxine 150 mg 300 mg PO DAILY 11/16/23 02/28/24 History capsule,extended release 24 hr quetiapine 25 mg tablet 25 mg PO QPM 02/18/24 02/28/24 History bupropion HCl 100 mg tablet 100 mg PO QAM 02/26/24 02/28/24 History folic acid 1 mg tablet 1 mg PO QAM 02/26/24 02/28/24 History Patient History Medical History Anxiety and depression Bruxism History of febrile seizure During childhood- only one episode- no further issues since that time History of menorrhagia History of uterine fibroid Iron deficiency hx iron infusions within last year Surgical History History of hysteroscopy for cervical polps History of wisdom tooth extraction S/P dilation and curettage Family History Grandfather (Maternal) Alcohol abuse Father Anxiety with depression Dyslipidemia Hypertension Diabetes Mother Anxiety with depression Anemia Uterine neoplasm, Onset Age: 38 Malignant melanoma of skin Pulmonary embolism Grandmother (Paternal) Osteoporosis Sister History of ovarian cyst Uncle Diabetes uncle Denies family history of Ovarian cancer Breast cancer Colorectal cancer Social History (Updated 02/18/24 @ 09:55 by Alicia Mo) Smoking Status: Never smoker Second Hand Exposure: Yes ( smokes); Do You Dip or Chew Tobacco: No; Hx Alcohol Use: No Hx Substance Use: No Preferred Language: Syriac Communication Ability: Effective Foam Charger Required: No Beliefs That Will Affect Care: None marital status: marital status details: [place] [phone] Current Living Situation: Parent and Family Current Living Situation Comment: Lives with , SHUN occasionally and 1 dog current occupational status: employed current occupation: [employer] Feels Safe at Home: Yes Gender Identity: Female Assistive Devices: None Physical Exam Gastrointestinal (Abdomen): distended abdomen, bedside us by US team with intact uterine wall, suspect adnexal issues. blood around liver and ant abd wall. Results & Data Vital Signs (Past 12 Hours) Vital Signs Pulse Resp BP Pulse Ox O2 Del Method 03/01/24 23:54 93 H 03/01/24 23:28 100 Room Air 03/01/24 23:27 84 18 102/61 99 Room Air 03/01/24 23:27 98 H 18 100 Room Air PG Care Time/CCT Total # of Minutes Spent Total Time Spent with Patient: Total time spent is greater than 50% in coordination of care (as documented) at patient's floor/unit and/or counseling patient: Coding Level of Care Code 80052 OP VST EST HI 40 MIN (57 - DECISION FOR SURGERY) Diagnoses Hemoperitoneum K66.1 Ruptured ectopic O00.90
--- NOTE | 2024-03-02 00:42 | Anesthesiology Consultation ---
Date of Service March 02, 2024 Assessment & Plan Chart Review Chart Review: Acceptable Risk for Surgery Consults Requested none History Surgery Operation Date: 03/02/24 00:30 Proposed Procedures p Laparoscopic Operative - Constance Field MD, FACOG Height/Weight Height: 5 ft 7 in Weight: 56.7 kg Allergies Allergy/AdvReac Type Severity Reaction Status Date / Time shellfish derived Allergy Mild Hives Verified 02/28/24 08:05 morphine AdvReac Mild paranoia Verified 02/28/24 08:05 Medications Home Medications Medication Instructions Recorded Confirmed Last Taken cetirizine 10 mg capsule (Zyrtec) 10 mg PO DAILY PRN Allergy Symptoms 10/13/22 02/28/24 07/29/23 08:00 prenat.vits,hollie,fjv-qyov-tmlly 1 tab PO QAM 10/13/22 02/28/24 07/29/23 08:00 venlafaxine 150 mg 300 mg PO DAILY 11/16/23 02/28/24 Unknown capsule,extended release 24 hr quetiapine 25 mg tablet 25 mg PO QPM 02/18/24 02/28/24 Unknown bupropion HCl 100 mg tablet 100 mg PO QAM 02/26/24 02/28/24 Unknown folic acid 1 mg tablet 1 mg PO QAM 02/26/24 02/28/24 Unknown Past Medical History Medical History Anxiety and depression Bruxism History of febrile seizure During childhood- only one episode- no further issues since that time History of menorrhagia History of uterine fibroid Iron deficiency hx iron infusions within last year Past Family History Family History Grandfather (Maternal) Alcohol abuse Father Anxiety with depression Dyslipidemia Hypertension Diabetes Mother Anxiety with depression Anemia Uterine neoplasm, Onset Age: 38 Malignant melanoma of skin Pulmonary embolism Grandmother (Paternal) Osteoporosis Sister History of ovarian cyst Uncle Diabetes uncle Denies family history of Ovarian cancer Breast cancer Colorectal cancer Past Surgical History Surgical History History of hysteroscopy for cervical polps History of wisdom tooth extraction S/P dilation and curettage Social History Smoking Status: Never smoker Do You Dip or Chew Tobacco: No Hx Alcohol Use: No Hx Substance Use: No substance use type: does not use Physical Exam Vital Signs Last Vital Signs Pulse 93 H 03/01/24 23:54 Resp 18 03/01/24 23:27 BP 102/61 03/01/24 23:27 Pulse Ox 100 03/01/24 23:28 O2 Del Method Room Air 03/01/24 23:28 Testing Laboratory Results 03/01/24 23:33 03/01/24 23:33 PT 14.0 Seconds (9.0-12.0) H 03/01/24 23:33 INR 1.3 (0.9-1.1) H 03/01/24 23:33 Blood Type A Positive 03/01/24 23:33 Antibody Screen NEGATIVE 03/01/24 23:33
[2024-03-02] MEDS ORDERED: fentaNYL citrate PF 100 MCG/2 ML VIAL ONE ×2 (00:48→02:06)
[2024-03-02] MEDS: ceFAZolin 2000MG 2,000 MG/15 ML SYR IV ONE (01:20)
--- NOTE | 2024-03-02 01:20 | Ultrasound Report ---
Exam(s): US OB LIMITED EXAM: US , Limited CLINICAL HISTORY: Reason for exam: bleeding/pain,. TECHNIQUE: Real-time limited ultrasound of the maternal uterus with image documentation. COMPARISON: 02/25/2024. FINDINGS: Uterus: The uterus measures 11.2 x 6.5 cm. There is a round heterogeneous structure within the lower uterine segment suggestive of uterine fibroid measuring 8.9 x 4.3 x 3.9 cm. Adnexa: Bilateral ovaries are not visualized. Free fluid: There is large amount of complex free fluid within the abdomen, likely hemorrhagic. Other findings: Diffuse heterogeneous enlargement of the endometrial stripe up to 28.7 mm. IMPRESSION: 1. Large amount of free fluid most compatible with hemorrhagic fluid given previous CT examination and previous exam. 2. Severe enlargement of the endometrium with diffuse heterogeneity and color-flow, combination of findings which may indicate large blood clots, endometrial hyperplasia, endometrial neoplasm. Patient has positive hCG levels, findings represent ectopic . By history, patient is currently on the way to the operating room. 3. Uterine fibroid measuring 4.3 cm in maximum dimension. 4. Nonvisualized bilateral ovaries. 5. These findings were described on the previous CT examination and urgently communicated to the physician per previous CT report. Electronically signed by: Mikaela Plaza MD 03/02/24 01:19 AM
[2024-03-02 01:29] LABS: Fibrinogen 111 mg/dl (184-400); Partial Thromboplastin Ratio 1.1; Partial Thromboplastin Time 29 Seconds (21-31)
[2024-03-02 01:57] LABS: Appearance Urine Clear (Clear); Bacteria Urine Automated None Seen (None Seen); Bilirubin Urine Negative (Negative); Blood Urine Negative (Negative); Cast Urine Automated 0-2 /lpf (0-2); Color Urine Yellow; Glucose Urine UA Negative (Negative); Ketones Urine Negative (Negative); Leukocyte Esterase Urine Negative (Negative); Nitrite Urine Negative (Negative); Protein Urine Trace (Negative); Specific Gravity Urine > 1.045 (1.000-1.030); Urobilinogen Urine Negative (Negative); WBC Urine Automated 0-5 /hpf (0-5); pH Urine 5.5 (4.5-7.5)
[2024-03-02] MEDS ORDERED: ceFAZolin 330 MG/ML 1 GM VIAL ONE (02:02)
[2024-03-02] MEDS ORDERED: PROPOFOL IV EMULSION 10 MG/ML 20 ML VIAL IV ONE (02:02)
[2024-03-02] MEDS ORDERED: ROCURONIUM BROMIDE 10 MG/ML 5 ML VIAL IV ONE (02:02)
[2024-03-02] MEDS ORDERED: ONDANSETRON INJ 2 MG/ML 2 ML VIAL ONE (02:02)
[2024-03-02] MEDS ORDERED: SUCCINYLCHOLINE CHLORIDE 20 MG/ML 10 ML VIAL IV ONE (02:02)
[2024-03-02] MEDS ORDERED: DEXAMETHASONE SOD INJ 4 MG/ML VIAL ONE (02:03)
[2024-03-02] MEDS ORDERED: LIDOCAINE 2% 2 ML VIAL/AMP(20MG/ML) INFIL ONE (02:04)
[2024-03-02] MEDS ORDERED: GLYCOPYRROLATE 0.2 MG/ML VIAL ONE (02:05)
[2024-03-02] MEDS ORDERED: NEOSTIGMINE METHYLSULFATE 1 MG/ML 10ML VIAL ONE (02:05)
--- NOTE | 2024-03-02 02:13 | Emergency Department Note ---
History of Present Illness General Chief complaint: Syncope Stated complaint: SHAKING, PAIN Time Seen by Provider: 03/01/24 23:25 History of Present Illness Maximum Pain Intensity: 8 This 38-year-old female presents the ER complaining of severe abdominal pain for the past hour who passed out in the lobby. Patient was emergently brought back to a room and I immediately evaluated the patient. Patient states she is due to have a molar removal on Sunday. She states tonight she was sitting there and developed severe pain which prompted her to come here. She then felt weak diaphoretic and passed out in the lobby. Patient complains of nausea and severe abdominal pain that is radiating up to her lower chest wall. She states she is healthy with no real medical problems besides anxiety and depression. Patient denies chest pain, dyspnea, fever, chills, cough, congestion. No trauma to the area. No prior abdominal surgeries. No prior blood transfusions. Home Medications Medication Instructions Recorded Confirmed Type cetirizine 10 mg capsule (Zyrtec) 10 mg PO DAILY PRN Allergy Symptoms 10/13/22 02/28/24 History prenat.vits,hollie,[id number] 1 tab PO QAM 10/13/22 02/28/24 History venlafaxine 150 mg 300 mg PO DAILY 11/16/23 02/28/24 History capsule,extended release 24 hr quetiapine 25 mg tablet 25 mg PO QPM 02/18/24 02/28/24 History bupropion HCl 100 mg tablet 100 mg PO QAM 02/26/24 02/28/24 History folic acid 1 mg tablet 1 mg PO QAM 02/26/24 02/28/24 History Allergies Allergy/AdvReac Type Severity Reaction Status Date / Time shellfish derived Allergy Mild Hives Verified 02/28/24 08:05 morphine AdvReac Mild paranoia Verified 02/28/24 08:05 Past Med/Surg History Problem List (Updated 03/02/24 @ 03:51 by MARY Irby) Hemorrhagic shock Ruptured ectopic Hemoperitoneum Encounter for pre-operative examination Encounter to determine viability of Supervision of elderly primigravida Major depression, recurrent Fibroid uterus Adnexal cyst Depression (Chronic) History of varicella Medical History History of uterine fibroid Bruxism Anxiety and depression History of febrile seizure During childhood- only one episode- no further issues since that time Iron deficiency hx iron infusions within last year History of menorrhagia Surgical History History of hysteroscopy for cervical polps S/P dilation and curettage History of wisdom tooth extraction Family History Grandfather (Maternal) Alcohol abuse Father Anxiety with depression Dyslipidemia Hypertension Diabetes Mother Anxiety with depression Anemia Uterine neoplasm, Onset Age: 38 Malignant melanoma of skin Pulmonary embolism Grandmother (Paternal) Osteoporosis Sister History of ovarian cyst Uncle Diabetes uncle Denies family history of Ovarian cancer Breast cancer Colorectal cancer Social History Smoking Status: Never smoker Second Hand Exposure: Yes ( smokes); Do You Dip or Chew Tobacco: No; Hx Alcohol Use: No Hx Substance Use: No Preferred Language: Maori Communication Ability: Effective [id number] Android Developer Required: No Beliefs That Will Affect Care: None marital status: marital status details: [place] Ames([phone] Current Living Situation: Parent and Family Current Living Situation Comment: Lives with , SHUN occasionally and 1 dog current occupational status: employed current occupation: [employer] Feels Safe at Home: Yes Gender Identity: Female Assistive Devices: None Review of Systems A total of 10 systems reviewed and were otherwise negative Physical Exam Vital Signs Vital Signs - 24 hr 03/01/24 23:27 03/01/24 23:27 03/01/24 23:28 Temperature Temperature Source Pulse Rate 98 H 84 Pulse Rate [Apical] Pulse Rate from SpO2 Sensor Pulse Rhythm Regular Regular Pulse Rhythm [Apical] Pulse Strength Normal Pulse Strength [Apical] Respiratory Rate 18 18 Respiratory Effort / Characteristics Non-Labored Spontaneous Respiratory Depth Normal Respiratory Pattern Regular Blood Pressure 102/61 Blood Pressure [Right Arm] Blood Pressure Mean 74 Blood Pressure Mean [Right Arm] Blood Pressure Position Lying Blood Pressure Position [Right Arm] Pulse Oximetry 100 99 100 Oxygen Delivery Method Room Air Room Air Room Air Oxygen Flow Rate Sepsis Recent Fever Within 48 Hours No Sepsis New/Unexplained Change in Mental Status No Sepsis Action Taken by Nursing No Action Required 03/01/24:52 03/01/24 23:54 03/01/24 23:56 Temperature Temperature Source Pulse Rate 93 H Pulse Rate [Apical] Pulse Rate from SpO2 Sensor Pulse Rhythm Pulse Rhythm [Apical] Pulse Strength Pulse Strength [Apical] Respiratory Rate Respiratory Effort / Characteristics Respiratory Depth Respiratory Pattern Blood Pressure 82/71 L Blood Pressure [Right Arm] Blood Pressure Mean 88 75 Blood Pressure Mean [Right Arm] Blood Pressure Position Blood Pressure Position [Right Arm] Pulse Oximetry Oxygen Delivery Method Oxygen Flow Rate Sepsis Recent Fever Within 48 Hours Sepsis New/Unexplained Change in Mental Status Sepsis Action Taken by Nursing 03/02/24 00:05 03/02/24 00:06 03/02/24 00:07 Temperature Temperature Source Pulse Rate 84 Pulse Rate [Apical] Pulse Rate from SpO2 Sensor 85 Pulse Rhythm Pulse Rhythm [Apical] Pulse Strength Pulse Strength [Apical] Respiratory Rate 16 Respiratory Effort / Characteristics Respiratory Depth Respiratory Pattern Blood Pressure 100/61 107/64 Blood Pressure [Right Arm] Blood Pressure Mean 70 78 Blood Pressure Mean [Right Arm] Blood Pressure Position Blood Pressure Position [Right Arm] Pulse Oximetry 100 Oxygen Delivery Method Oxygen Flow Rate Sepsis Recent Fever Within 48 Hours Sepsis New/Unexplained Change in Mental Status Sepsis Action Taken by Nursing 03/02/24 00:12 03/02/24 00:18 03/02/24 00:20 Temperature Temperature Source Pulse Rate 93 H 85 Pulse Rate [Apical] Pulse Rate from SpO2 Sensor 81 85 Pulse Rhythm Pulse Rhythm [Apical] Pulse Strength Pulse Strength [Apical] Respiratory Rate 17 20 Respiratory Effort / Characteristics Respiratory Depth Respiratory Pattern Blood Pressure 67/55 L Blood Pressure [Right Arm] Blood Pressure Mean 59 Blood Pressure Mean [Right Arm] Blood Pressure Position Blood Pressure Position [Right Arm] Pulse Oximetry 93 100 Oxygen Delivery Method Oxygen Flow Rate Sepsis Recent Fever Within 48 Hours Sepsis New/Unexplained Change in Mental Status Sepsis Action Taken by Nursing 03/02/24 00:21 03/02/24 00:32 03/02/24 00:48 Temperature Temperature Source Pulse Rate 87 73 Pulse Rate [Apical] Pulse Rate from SpO2 Sensor 75 Pulse Rhythm Pulse Rhythm [Apical] Pulse Strength Pulse Strength [Apical] Respiratory Rate 18 16 Respiratory Effort / Characteristics Respiratory Depth Respiratory Pattern Blood Pressure 98/71 L Blood Pressure [Right Arm] Blood Pressure Mean 81 Blood Pressure Mean [Right Arm] Blood Pressure Position Blood Pressure Position [Right Arm] Pulse Oximetry 100 Oxygen Delivery Method Oxygen Flow Rate Sepsis Recent Fever Within 48 Hours Sepsis New/Unexplained Change in Mental Status Sepsis Action Taken by Nursing 03/02/24 02:50 Temperature 36.0 C L Temperature Source Temporal Artery Scan Pulse Rate Pulse Rate [Apical] 70 Pulse Rate from SpO2 Sensor Pulse Rhythm Pulse Rhythm [Apical] Regular Pulse Strength Pulse Strength [Apical] Normal Respiratory Rate 15 Respiratory Effort / Characteristics Non-Labored Spontaneous Respiratory Depth Normal Respiratory Pattern Regular Blood Pressure Blood Pressure [Right Arm] 95/49 L Blood Pressure Mean Blood Pressure Mean [Right Arm] 64 Blood Pressure Position Blood Pressure Position [Right Arm] Lying Pulse Oximetry 100 Oxygen Delivery Method Oxymask Oxygen Flow Rate 8 Sepsis Recent Fever Within 48 Hours Sepsis New/Unexplained Change in Mental Status Sepsis Action Taken by Nursing VITALS: Vitals are noted on the nurse's note and reviewed by myself. Vital signs hypotensive and tachycardic. GENERAL: Pale diaphoretic female in no acute distress, well-developed well- nourished. SKIN: The skin was without rashes, erythema, edema, or bruising. There is no tenting of the skin. Capillary reflex less than 2 seconds. HEAD: Normocephalic atraumatic. EARS: External auditory canals clear EYES: Pupils equal round and reactive to light and accommodation. Conjunctivae without injection, sclerae without icterus. Extraocular movements intact. NOSE: Patent, no discharge. MOUTH: Mucous membranes moist. Pharynx without erythema or exudate. Uvula midline. Airway patent. Tongue does not deviate. NECK: Supple without nuchal rigidity. No lymphadenopathy. No thyromegaly. Cervical spine is nontender. No JVD. HEART: Mildly tachycardic rate and rhythm LUNGS: Clear to auscultation bilaterally without wheezes, rales or rhonchi. No retractions or accessory muscle use. ABDOMEN: Positive bowel sounds x 4. Normal tympanic percussion. Soft, diffusely tender to palpation with rebound tenderness and guarding, without masses or organomegaly. Marcus sign negative. No CVA tenderness MUSCULOSKELETAL: No muscle atrophy, erythema, or edema noted. NEURO: Patient was alert and oriented to person place and time. Normal sensation to light and sharp touch. No focal neurological deficits. Course Administered Medications Discontinued Medications Famotidine (Famotidine 20mg/5ml Iv Push) Confirm Administered Dose 20 mg IV .Tamarac ONE Stop: 03/02/24 00:17 Last Admin: 03/02/24 00:17 Dose: 20 mg Documented By: IDRobe Fentanyl Citrate (Fentanyl Citrate Pf 100 Mcg/2 Ml Vial) Confirm Administered Dose 100 mcg .ROUTE .STK-MED ONE Stop: 03/01/24 23:50 Last Increment: 03/02/24 00:14 Dose: 50 mcg Documented By: DEIDRE Increment: 03/01/24 23:51 Dose: 50 mcg Documented By: IDRobe Sodium Chloride (Nss) 1,000 mls @ 999 mls/hr IV .Q1H1M LORY Stop: 03/02/24 00:30 Last Admin: 03/01/24 23:52 Dose: 999 mls/hr Documented By: IDRobe Cefazolin Sodium (Ancef 2000mg) 2,000 mg in 15 mls @ 3.75 mls/min IV ONCE ONE; Protocol Stop: 03/02/24 01:50 Last Admin: 03/02/24 01:20 Dose: 3.75 mls/min Documented By: LENORE Ioversol (Optiray 320 125ml) 119 ml IV ONCE ONE Stop: 03/01/24 23:49 Last Admin: 03/01/24 23:48 Dose: 119 ml Documented By: PLW Miscellaneous ( Floseal Hemostatic Matrix 10ml) 10 ml TOP ONCE ONE Stop: 03/02/24 01:50 Last Admin: 03/02/24 02:15 Dose: 10 ml Documented By: SMP Ondansetron HCl (Ondansetron Inj 2 Mg/Ml 2 Ml Vial) 4 mg IV NOW STA Stop: 03/01/24 23:28 Last Admin: 03/01/24 23:52 Dose: 4 mg Documented By: DEIDRE Critical Care Time Critical Care Time: Yes Total Critical Care Time: 135 I have personally spent 135 minutes of critical care time in the direct management of this patient. This includes bedside care, interpretation of diagnostic studies, and testing, discussion with consultants, patient, and family members, and other required patient management activities. This 135 minutes is in excess of all separately billable procedures. Medical Decision Making Medical Records Attestation: I reviewed the patient's medical records. Home Medications Current Medication List: was personally reviewed by me Laboratory Data Attestation: I reviewed the patient's lab results. 03/01/24 23:33 03/01/24 23:33 Lab Results 03/01/24 03/01/24 03/02/24 Range/Units 23:33 23:35 00:34 WBC 13.85 H (4.8-10.8) K/ul RBC 3.77 L (4.20-5.40) M/uL Hgb 12.0 (12.0-16.0) g/dl Hct 35.0 L (37.0-47.0) % MCV 92.8 (80.0-100.0) fL MCH 31.8 (25.0-34.0) pg MCHC 34.3 (32.0-36.0) g/dL RDW Std Deviation 42.6 (36.4-46.3) fL RDW Coeff of Kieran 12.5 (11.5-14.5) % Plt Count 161 (130-400) K/uL MPV 11.8 (9.4-12.4) fL Immature Gran % (Auto) 0.4 % Neut % (Auto) 62.1 % Lymph % (Auto) 28.8 % Summers % (Auto) 6.4 % Eos % (Auto) 1.9 % Baso % (Auto) 0.4 % Neut # (Auto) 8.59 H (1.40-6.50) K/uL Lymph # (Auto) 3.99 H (1.20-3.40) K/uL Summers # (Auto) 0.89 H (0.11-0.59) K/uL Eos # (Auto) 0.27 (0.00-0.50) K/uL Baso # (Auto) 0.06 (0.00-0.20) K/uL Immature Gran # (Auto) 0.05 (0.01-0.20) K/uL PT 14.0 H (9.0-12.0) Seconds INR 1.3 H (0.9-1.1) APTT (21-31) Seconds PTT Ratio Fibrinogen (184-400) mg/dl Sodium 136 (136-145) mmol/L Potassium 2.9 L (3.5-5.1) mmol/L Chloride 103 (98-107) mmol/L Carbon Dioxide 19 L (21-32) mmol/L Anion Gap 14 H (3-11) BUN 12 (6-23) mg/dl Creatinine 0.90 (0.6-1.2) mg/dl Est Cr Clr Drug Dosing 75.9 ml/min Est GFR ( Amer) 94.0 ml/min Est GFR (Non-Af Amer) 81.1 ml/min BUN/Creatinine Ratio 13.3 (10-20) Glucose 178 H (70-99(Fasting)) mg/dl Lactate 4.9 H* (0.4-2.0) mmol/L Calcium 9.3 (8.6-10.3) mg/dl Magnesium 2.1 (1.7-2.4) mg/dl Total Bilirubin 0.2 (0.2-1.0) mg/dl AST 18 (13-39) U/L ALT 8 (7-52) U/L Alkaline Phosphatase 46 (34-104) U/L Total Creatine Kinase 133 (26-192) U/L Troponin I High Sens < 2.3 (0-14) pg/ml Total Protein 6.6 (6.0-8.3) gm/dl Albumin 4.2 (3.4-5.0) gm/dl Globulin 2.4 L (2.5-4.0) gm/dl Albumin/Globulin Ratio 1.8 (0.9-2) TSH 12.668 H (0.300-4.500) uIu/ml Free T4 0.82 (0.61-1.60) ng/dl HCG, Qual Positive (Negative) Urine Color Urine Appearance (Clear) Urine pH (4.5-7.5) Ur Specific [place] (1.000-1.030) Urine Protein (Negative) Urine Glucose (UA) (Negative) Urine Ketones (Negative) Urine Blood (Negative) Urine Nitrite (Negative) Urine Bilirubin (Negative) Urine Urobilinogen (Negative) Ur Leukocyte Esterase (Negative) Urine WBC (Auto) (0-5) /hpf Urine RBC (Auto) (0-2) /hpf U Hyaline Cast (Auto) (0-2) /lpf U Epithel Cells (Auto) (0-2) /hpf Urine Bacteria (Auto) (None Seen) Blood Type A Positive Blood Type Recheck A Positive Antibody Screen NEGATIVE Crossmatch See Detail 03/02/24 03/02/24 Range/Units 00:43 00:45 WBC (4.8-10.8) K/ul RBC (4.20-5.40) M/uL Hgb (12.0-16.0) g/dl Hct (37.0-47.0) % MCV (80.0-100.0) fL MCH (25.0-34.0) pg MCHC (32.0-36.0) g/dL RDW Std Deviation (36.4-46.3) fL RDW Coeff of Kieran (11.5-14.5) % Plt Count (130-400) K/uL MPV (9.4-12.4) fL Immature Gran % (Auto) % Neut % (Auto) % Lymph % (Auto) % Summers % (Auto) % Eos % (Auto) % Baso % (Auto) % Neut # (Auto) (1.40-6.50) K/uL Lymph # (Auto) (1.20-3.40) K/uL Summers # (Auto) (0.11-0.59) K/uL Eos # (Auto) (0.00-0.50) K/uL Baso # (Auto) (0.00-0.20) K/uL Immature Gran # (Auto) (0.01-0.20) K/uL PT (9.0-12.0) Seconds INR (0.9-1.1) APTT 29 (21-31) Seconds PTT Ratio 1.1 Fibrinogen 111 L (184-400) mg/dl Sodium (136-145) mmol/L Potassium (3.5-5.1) mmol/L Chloride (98-107) mmol/L Carbon Dioxide (21-32) mmol/L Anion Gap (3-11) BUN (6-23) mg/dl Creatinine (0.6-1.2) mg/dl Est Cr Clr Drug Dosing ml/min Est GFR ( Amer) ml/min Est GFR (Non-Af Amer) ml/min BUN/Creatinine Ratio (10-20) Glucose (70-99(Fasting)) mg/dl Lactate (0.4-2.0) mmol/L Calcium (8.6-10.3) mg/dl Magnesium (1.7-2.4) mg/dl Total Bilirubin (0.2-1.0) mg/dl AST (13-39) U/L ALT (7-52) U/L Alkaline Phosphatase (34-104) U/L Total Creatine Kinase (26-192) U/L Troponin I High Sens (0-14) pg/ml Total Protein (6.0-8.3) gm/dl Albumin (3.4-5.0) gm/dl Globulin (2.5-4.0) gm/dl Albumin/Globulin Ratio (0.9-2) TSH (0.300-4.500) uIu/ml Free T4 (0.61-1.60) ng/dl HCG, Qual (Negative) Urine Color Yellow Urine Appearance Clear (Clear) Urine pH 5.5 (4.5-7.5) Ur Specific [place] > 1.045 H (1.000-1.030) Urine Protein Trace H (Negative) Urine Glucose (UA) Negative (Negative) Urine Ketones Negative (Negative) Urine Blood Negative (Negative) Urine Nitrite Negative (Negative) Urine Bilirubin Negative (Negative) Urine Urobilinogen Negative (Negative) Ur Leukocyte Esterase Negative (Negative) Urine WBC (Auto) 0-5 (0-5) /hpf Urine RBC (Auto) 3-5 H (0-2) /hpf U Hyaline Cast (Auto) 0-2 (0-2) /lpf U Epithel Cells (Auto) 3-5 H (0-2) /hpf Urine Bacteria (Auto) None Seen (None Seen) Blood Type Blood Type Recheck Antibody Screen Crossmatch Imaging Data Attestation: I personally reviewed and interpreted this imaging study as follows: Radiologist's Impression: Abdomen/Pelvis CT 03/01/24 23:27 CR Exam(s): CT ABDOMEN + PELVIS With Contrast IV Amt: 119 ml opti 320 EXAM: CT Abdomen and Pelvis With Intravenous Contrast CLINICAL HISTORY: Reason for exam: severe pain, syncope. TECHNIQUE: Axial computed tomography images of the abdomen and pelvis with intravenous contrast. CTDI is 14.94 mGy and DLP is 1212.34 mGy-cm. Automated exposure control was utilized for the study. A dose lowering technique was utilized adhering to the principles of ALARA. CONTRAST: Patient received 119 ml opti 320 of IV contrast COMPARISON: None. FINDINGS: Lung bases: Unremarkable. No mass. No consolidation. ABDOMEN: Liver: High density fluid surrounding the liver and spleen tracing into the left paracolic bladder with heterogeneous pattern along the left abdomen consistent with hemorrhagic fluid. There is active bleed along the left paracolic gutter exact origin indeterminate and possibly originating at the left adnexa. Gallbladder and bile ducts: Unremarkable. No calcified stones. No ductal dilation. Pancreas: Unremarkable. No mass. No ductal dilation. Spleen: See above. Adrenals: Unremarkable. No mass. Kidneys and ureters: Unremarkable. No solid mass. No hydronephrosis. Stomach and bowel: Unremarkable. No obstruction. No mucosal thickening. PELVIS: Appendix: No findings to suggest acute appendicitis. Bladder: See above. Reproductive: See above. ABDOMEN and PELVIS: Intraperitoneal space: There is anteverted uterus with nonspecific heterogeneous enlargement of the endometrium versus endometrial mass. There is a largely enhancing density within the right adnexa measuring 5. 0 x 4.5 cm. There is a Low-sodium cyst within the right adnexa measuring 2 cm. There is large amount of free fluid with heterogeneous high density concerning for hemorrhagic fluid within the pelvis including bilateral adnexal regions. No free air. Bones/joints: No acute fracture. No dislocation. Soft tissues: Unremarkable. Vasculature: Unremarkable. No abdominal aortic aneurysm. Lymph nodes: Unremarkable. No enlarged lymph nodes. IMPRESSION: Large free intraperitoneal abdominal and pelvic fluid with high density highly compatible with hemorrhagic fluid and significant amount of active bleed on the left. This originates at the level of the left adnexa. There is heterogeneous enlargement of the endometrium with masslike density. Careful correlation with patient's hCG measurements. If patient is positive hCG, findings could represent ruptured ectopic with active bleed. Given the likely origin of the bleeding related to the left adnexa, differential diagnosis includes AV malformation given intense enhancement of the bilateral ovaries, right than left, adnexal mass with ovarian torsion excluded. Recommend follow- up with [facility] consultation, characterization ultrasound and hCG measurements. Communications: Call Doctor Other Electronically signed by: Mikaela Plaza MD 03/02/24 00:24 AM Chest CTA 03/01/24 23:27 Exam(s): CTA CHEST IV Amt: 119 ml opti 320 EXAM: CT Angiography Chest With Intravenous Contrast CLINICAL HISTORY: Reason for exam: PE. TECHNIQUE: Axial computed tomographic angiography images of the chest with intravenous contrast. CTDI is 14.94 mGy and DLP is 1212.34 mGy-cm. Automated exposure control was utilized for the study. A dose lowering technique was utilized adhering to the principles of ALARA. MIP reconstructed images were created and reviewed. COMPARISON: None. FINDINGS: Pulmonary arteries: Unremarkable. No pulmonary embolism. Normal enhancement of the pulmonary arteries. Aorta: No acute findings. Normal aorta and no dissection or aneurysm. Lungs: There is an ovoid, left apical medial subpleural mass measuring 4.2 x 3.1 cm with heterogeneous enhancement concerning for neoplasm. No consolidation. Pleural space: Unremarkable. No significant effusion. No pneumothorax. Heart: Unremarkable. No cardiomegaly. No significant pericardial effusion. No evidence of RV dysfunction. Bones/joints: No acute fracture. No dislocation. Soft tissues: Unremarkable. Lymph nodes: Unremarkable. No enlarged lymph nodes. Intraperitoneal space: Abdomen reveals moderate to large ascites with high density concerning for hemorrhagic component. IMPRESSION: 1. No pulmonary embolus or dissection. 2. No acute cardiopulmonary disease. 3. High density ascites in the upper abdomen concerning for hemorrhagic component, please see accompanying CT of the abdomen and pelvis report. 4. Left apical subpleural mass with heterogeneous enhancement concerning for neoplasm, clinical correlation recommended. If indicated, further characterization recommended with PET scan evaluation to evaluate benign versus malignant process. Electronically signed by: Mikaela Plaza MD 03/02/24 00:19 AM Obstetrics Ultrasound 03/02/24 00:00 Exam(s): US OB LIMITED EXAM: US , Limited CLINICAL HISTORY: Reason for exam: bleeding/pain,. TECHNIQUE: Real-time limited ultrasound of the maternal uterus with image documentation. COMPARISON: 02/25/2024. FINDINGS: Uterus: The uterus measures 11.2 x 6.5 cm. There is a round heterogeneous structure within the lower uterine segment suggestive of uterine fibroid measuring 8.9 x 4.3 x 3.9 cm. Adnexa: Bilateral ovaries are not visualized. Free fluid: There is large amount of complex free fluid within the abdomen, likely hemorrhagic. Other findings: Diffuse heterogeneous enlargement of the endometrial stripe up to 28.7 mm. IMPRESSION: 1. Large amount of free fluid most compatible with hemorrhagic fluid given previous CT examination and previous exam. 2. Severe enlargement of the endometrium with diffuse heterogeneity and color-flow, combination of findings which may indicate large blood clots, endometrial hyperplasia, endometrial neoplasm. Patient has positive hCG levels, findings represent ectopic . By history, patient is currently on the way to the operating room. 3. Uterine fibroid measuring 4.3 cm in maximum dimension. 4. Nonvisualized bilateral ovaries. 5. These findings were described on the previous CT examination and urgently communicated to the physician per previous CT report. Electronically signed by: Mikaela Plaza MD 03/02/24 01:19 AM MDM Narrative Prior records/ancillary studies reviewed. Triage Nursing notes reviewed. Additional history obtained from family. The patient's history was concerning for abdominal pain. Differential diagnosis: Etiologies such as appendicitis, diverticulitis, PUD, biliary pathology, UTI, pancreatitis, obstruction, mesenteric ischemia, aortic pathology, infections, inflammatory bowel disease, renal colic, as well as others were entertained. Physical examination findings: As above. ER treatment provided: An order was placed for continuous cardiac monitoring. The monitor shows a rate of 60-1 50 with a sinus rhythm per my Independent interpretation. 2 IV lines, i-STAT, fingerstick were immediately initiated Limited Point of Care FAST Ultrasound performed by me: Indication: Severe abdominal pain Findings: Limited cardiac ultrasonography via subxiphoid and parasternal long view showed cardiac wall motion activity, no pericardial fluid, no tamponade. Limited chest ultrasound revealed bilateral lung sliding. Limited abdominal ultrasound revealed large amount free fluid within Morrisons pouch, splenorenal space, and the pouch of Feliciano. Impression: Positive FAST exam. Patient was emergently sent down to CAT scan and they called OB immediately with a positive fast Patient became more unstable and was given 4 units of uncrossed blood with 2 units of FFP calcium and MTP was initiated. Patient was consented to the blood. Consent paperwork was placed on the chart. She was given 3 L of fluid, Pepcid, Protonix, Zofran. Torres was placed. Patient had a total of 3 IV lines. Patient was reassessed multiple times. On reassessment the patient felt better. Diagnostics interpreted by me: ECG: Ordered for syncope EKG: Poor baseline, normal sinus, normal intervals, minimal ST depression in the inferior leads, rate of 96. Impression normal sinus rhythm poor baseline rate of [address] depression inferior leads independently interpreted by myself The labs Independently Interpreted by myself revealed initial i-STAT H&H was 12 and 36; repeat was 7 and 22 Type and screen and crossmatch and patient was consented to blood Positive Imaging studies: Imaging was reviewed and read by radiology as above Patient had a positive fast by my independent interpretation. OB was immediately called at that time and patient was sent for emergent CAT scans. Consultation: A consultation was placed with the LAT[facility] SET UP OPERATOR, Dr. Field. The case was discussed and diagnostics were reviewed. The patient was evaluated in the ER for further treatment. She emergently came to the ER and evaluated the patient. She consented the patient and the patient was emergently taken to the OR. Exam and history seem consistent with ruptured ectopic with hemoperitoneum. Patient was seen immediately by myself and had a positive fast. She was emergently sent down to CAT scan and I called OB while the patient was in CAT scan. OB came to the ER and evaluated the patient. She consented the patient to the OR and patient was taken to the OR for emergent surgery for the ruptured ectopic. Patient became hypotensive despite IV fluids and blood and was given 1 push dose of epi and was concerning for hemorrhagic shock. Her blood pressure improved immediately with the push dose epi. She was given antibiotics per OBs request of doxycycline. She was given 4 units of blood, 2 units of FFP, calcium and platelets. She was also given Protonix Pepcid and Zofran. She was reassessed multiple times. Torres was placed. Heating blankets were replaced. Vital signs improved. Patient was agreeable treatment plan of going to the OR. My attending was made aware this patient immediately after the positive fast and my initial evaluation. By the evaluation outlined above emergent etiologies such as appendicitis, diverticulitis, PUD, biliary pathology, UTI, pancreatitis, obstruction, mesenteric ischemia, aortic pathology, infections, inflammatory bowel disease, renal colic, as well as others were deemed relatively unlikely. The pt informed about the findings as listed above. All questions were answered and pleased with the treatment. The chart was completed utilizing WebPT voice recognition software. Grammatical errors, random word insertions, pronoun errors, and incomplete sentences are an occassional consequence of this system due to software limitations, ambient noise, and hardware issues. Any formal questions or concerns about the content, text, or information contained within the body of this dictation should be directly addressed to the physician anesthesia assistant for clarification. Impression & Plan Ruptured ectopic , Hemoperitoneum, Hemorrhagic shock Discharge Plan Visit Data Chief Complaint: Syncope Stated Complaint: SHAKING, PAIN ED Provider: Margo Castaneda ED Midlevel Provider: Michael,Gila M Discharge Problem: Ruptured ectopic , Hemoperitoneum, Hemorrhagic shock Patient Disposition: Admitted As Inpatient Condition: Fair Discharge Instructions Interventions: ED Discharge Assessment Last Done: 03/02/24 00:52
[2024-03-02] MEDS: FLOSEAL HEMOSTATIC MATRIX 10ML TOP ONE (02:15)
--- NOTE | 2024-03-02 02:37 | Post Operative Brief Note ---
Immediate Post Op Note Date of Surgery March 02, 2024 Pre & Post Diagnosis Operation Date: 03/02/24 00:30 Pre-Op Diagnosis: Hemoperitoneum, Suspected Ruptured Ectopic Post-Op Diagnosis: Hemoperitoneum Ruptured Ectopic I identified the patient and participated in the time-out.: Yes Procedure Operation Date: 03/02/24 00:30 Actual Procedures p Operative Laparotomy, Left Salpingoophrectomy, Evacuation of Hemoperitoneum Surgeon Constance Field MD, FACOG [employer] [place] Quantitative Blood Loss (QBL) 3000 Findings Consistent with Post-Op Diagnosis (large amount of blood and clots in pelvis. left ruptured tube with extruding pocs, fimbriated end of tubal with active bleeding and edematous tissue with active oozing at level of ovary and IP lig) Right fallopian tube with paratubal cyst. Normal right ovary and tube otherwise. Uterus enlarged and boggy. Edematous tissue. Fluids 2500cc crystalloid 1 u PRBC 2 u FFP 1 dose pack plts. Specimens Specimen Description: A. Right Salpingo-oophorectomy with Ruptured Ectopic Drains Torres Catheter and Remi-Floyd Drain (15 round SHAJI) Anesthesia Type General Complications none Disposition Accompanied Patient To Recovery: Yes Disposition: Surgical ICU
[2024-03-02] MEDS ORDERED: NALOXONE HCL 0.4 MG/1 ML VIAL/CARP IV PRN (02:54)
[2024-03-02] MEDS ORDERED: ONDANSETRON INJ 2 MG/ML 2 ML VIAL IV PRN ×2 (02:54→03:01)
[2024-03-02] MEDS ORDERED: ATROPINE SULFATE 0.1 MG/ML 10ML SYR IV PRN (03:01)
[2024-03-02] MEDS ORDERED: ePHEDrine sulfate 50 MG/ML AMP IV PRN (03:01)
[2024-03-02] MEDS ORDERED: PROMETHAZINE HCL 6.25 MG in SODIUM CHLORIDE 0.9% 50 ML IV PRN (03:01)
[2024-03-02] MEDS ORDERED: HYDROmorphone INJ 2 MG/ML SYR/VIAL IV PRN (03:01)
[2024-03-02 03:27] LABS: T4 Free Thyroxine 0.82 ng/dl (0.61-1.60)
--- NOTE | 2024-03-02 03:27 | Operative Report ---
[facility] Post Operative Report Pre & Post Diagnosis Operation Date: 03/02/24 00:30 Pre-Op Diagnosis: Hemoperitoneum, Suspected Ruptured Ectopic Post-Op Diagnosis: Hemoperitoneum, Ruptured Left Ectopic I identified the patient and participated in the time-out.: Yes Procedure Operation Date: 03/02/24 00:30 Actual Procedures p Exploratory Laparotomy, Left Salpingo-oophorectomy with Management of Ectopic , Evacuation of Hemoperitoneum, Placement of SHAJI drain(Not Applicable) - Constance Field MD, FACOG Surgeon Constance iFeld MD, FACOG Sound Engineer [place] Estimated Blood Loss 3,000 Findings Consistent with Post-Op Diagnosis (large amount of blood and clots in pelvis. left ruptured tube with extruding pocs, fimbriated end of tubal with active bleeding and edematous tissue with active oozing at level of ovary and IP lig) Fluids 2500 crystalloid, 1u PRBC, 1 dose pack plts, 2 FFP Specimens left tube and ovary and pocs Drains parada SHAJI drain Anesthesia Type General Complications none Disposition Accompanied Patient To Recovery: Yes Disposition: Surgical ICU Indications 38yo with severe pain and hemoperitoneum, in background of suspected molar/abnormal , presented to ER with syncope, ultimately developed hypotension requiring emergency surgery for suspected ruptured ectopic . Description of Procedure The patient was taken to the operating room and identified. Due to the acuity of her situation the request by anesthesia was for her to be prepped and draped prior to induction of anesthesia. Her abdomen was prepped and she was placed in the dorsolithotomy position, pending possible need to evacuate the uterus. SCDs were in place and a parada catheter had already been placed. She was draped in the usual sterile fashion. After induction of anesthesia a Pfannenstiel skin incision was made with the knife. It was carried down to the underlying layer of fascia. The fascia was extended laterally on each side bluntly and with scissors. Hugo clamps were placed on the superior and inferior aspects of the fascial incision tenting it upwards and the underlying rectus muscles were dissected off the overlying fascia both sharply and bluntly using Sandoval scissors. The rectus muscles were bluntly in the midline. The peritoneal cavity was bluntly entered into and immediately large amounts of extruding blood and clot were noted. The uterus was identified and at the right cornu was elevated. The involved side was determined to be the left side where extruded products of conception were noted emanating from the left fallopian tube. This area was grasped with 2 Kellys and elevated. The tissue was very edematous. There was some easy trauma and tearing of tissue that was occurring even with gentle elevation. The LigaSure device was readied. The left fallopian tube was transected closer to the cornua and the mesosalpinx was undermined. Additional grasps with the ligasure took place in order to coagulate any bleeding. It then became evident that there was continued bleeding and oozing towards the fimbriated end and at the level of the infundibulopelvic ligament on the left side. The bowel was packed away and the tissues were inspected however were quite edematous. The bleeding was continuing at the level of the infundibulopelvic ligament on the left side and therefore this pedicle was crossclamped with 2 Elli clamps. This seemed to stem the bleeding. Further suction took place in order to ascertain if this was the main source of the bleeding. It did appear that way. Care was taken to make sure the bowel was retracted away from the clamp sites and the pedicle was grasped as close as possible to the ovary to secure the bleeding but to not injure underlying structures. The pedicle was transected. The infundibulopelvic ligament was free tied and then suture transfixed with 0 Vicryl. The sutures were left long. The LigaSure was then used to come across the remaining ovary, mesosalpinx and broad ligament tissue. This completely transected the left tube and ovary which was sent as specimen. The ligated infundibulopelvic ligament was watched. Pelvic irrigation took place. The patient was taken in and out of Trendelenburg in order to evacuate as much blood and clot from her abdomen as possible. Attention was returned to the operative sites. The peritoneal sidewalls were edematous but did not appear to be actively oozing and there was no obvious bleeding. Decision was made to continue to irrigate the pelvis and remove clot and then apply Floseal. All the sponges were removed. The Floseal was readied. All operative sites were covered with the Floseal. All instruments and retractors were removed. The O'Jerrod-O'Cortez retractor which had ultimately been placed was removed. The patient was flattened and the fascia was closed in a running fashion using 0 Vicryl. Due to some continued bloody fluid that was not considered to be active bleeding, the decision was made to place a Remi- Floyd drain into the abdomen. It was readied placed in the abdomen and pulled through the skin and fascia in the usual fashion. The fascia was continued to be closed. The subcutaneous fat was irrigated. It was reapproximated using 2-0 chromic. The skin was closed in subcuticular fashion using Monocryl 4-0. The SHAJI drain was secured using silk suture. The grenade was placed. At this point the procedure was terminated. All sponge lap needle counts were correct x 2. The patient was awoken from anesthesia and taken to the ICU in stable condition. I attest to the content of the Intraoperative Record and any orders documented therein. Any exceptions are noted below. [employer]SEM[employer]ER KNIFE Major Procedure Codes Laparotomy/Laparoscopic 00530 Open/LAP SO
--- NOTE | 2024-03-02 03:47 | Critical Care Consultation ---
Date of Consultation March 02, 2024 Assessment & Plan (1) Hemorrhagic shock: (2) Ruptured ectopic : (3) Hemoperitoneum: (4) Major depression, recurrent: Plan Reason Critically Ill: 38 YOF presents to the ICU following emergent ex-lap with management of ectopic that resulted in hemorrhagic shock, evacuation of hemoperitoneum, and left salpingo-oophorectomy Neuro - Acute pain, MDD CAM ICU: Negative - pain control per primary surgical service- currently with PREPRESS STRIPPER- rescue Narcan is available - Continue Wellbutrin, Seroquel, and Venlafaxine. Cardiac - Hemorrhagic shock - Resolved at this time following 5 unit PRBC, 2 FFP, 1 Platelet, 1GM CaCL - hemodynamics stable without vasopressor use - follow HGB, Lacate, and renal indices - Continue supportive care at this time - Pending lab studies on arrival - continue with crystalloid infusion Respiratory - No acute needs - on room air without advantageous breath sounds GI - s/p ex lap - midline incision intact with dressing without strike through - shivam drain in place - soft tender around incision RENAL/LYTES - Electrolyte disturbances - Hypokalemic through EMD labs- recheck BMP at this time - ICU electrolyte protocol - follow daily BMP - s/p salpingo oophorectomy secondary to ruptured molar - Surgical management per OBGYN - Continue supportive care ENDO - No acute needs HEME - Shock as above - transfuse as indicated for active bleeding, hypotension, HGB levels <8 - Recheck fibrinogen post resuscitation - replete as indicated - If bleeding re-occurs continue with 2:1:1 with goal of 1:1:1 resuscitation ID - No concern for infectious etiology at this time - post surgical abx therapy per primary surgical team LINES/IV ACCESS - PIV x3, parada Continue use of these lines DVT PROPHYLAXIS - SCDS, hold chemoprophylaxis at this time until hemostasis is ensured DISPO: ICU until hemostasis is ensured and hemodynamics stability proven. I have personally spent 50 minutes of critical care time in the direct management of this patient. This is a life/limb threatening event. This includes time spent evaluating patient, direct bedside care, chart review, placing orders, interpretation of diagnostic studies, discussion with consultants, patient, and family members, as well as other required patient management activities. This time is exclusive of all separately billable procedures, and teaching time and separate from and in addition to any other critical care service time. Thank you for allowing us to participate in the care of this patient. Please refer to my attending physician's documentation for any further recommendations. Supervising Physician Co-Signing Physician Notes I have personally evaluated and examined this patient. I agree with assessment and plan of Consuelo HERNANDEZ. Adequate/appropriate blood product resuscitation. During my evaluation patient having mild abdominal pain, feels okay. Would like to drink fluids. We discussed early mobilization. Pain adequately controlled with PREPRESS STRIPPER at this time. Will progress to sips and chips and out of bed to chair as tolerated. Patient will be appropriate for downgrade out of ICU later today. History of Present Illness Reason for Consultation: hemorrhage Requesting Physician: constance Field MD Attending Physician: Constance Field MD, FACOG History of Present Illness 38 YOF that was being followed by OBGYN for suspected molar . She presented to the EMD with abdominal pain and had syncopal episode while in the waiting room. She was noted to be in hemorrhagic shock with blood pressures 60s/50s, tachycardic to the 110s, shivering. She was noted to have free fluid in her abdomen with BROWN evaluation in the EMD as well as a CT scan of her abdomen and pelvis completed which revealed large intraperitoneal abdominal and pelvic fluid consistent with hemorrhagic fluid and active bleeding interpreted on the left. Patient underwent rapid blood transfusion receiving 4 units of PRBC, 1 GM of Calcium while awaiting the EMD. FFP was thawing. Her HGB level went from 12 to 7 during that time. She did stabilize hemodynamically following blood products and calcium with BP 100s/60s and HR decreased to the 90s. She was evaluated by OBGYN and Anesthesia and taken urgently to the operating room. Patient then underwent exploratory laparotomy with left salpingo-oophorectomy with evacuation of hemoperitoneum and placement of SHIVAM drain as well as management of the ectopic . She was estimated with blood loss of 3liters. She received 2.5 liters crystalloid, 1 unit of PRbC, 2 FFP and 1 Platelet during the operation. She was brought to PACU and then to the ICU for continued management and following of hemodynamics. Patient is currently awake, conversant. BP is adequate at 100/50s with MAPS 65-70, extubated and on room air. She is noted with SHIVAM drain with serous sang drainage. Total blood products prior to arrival to ICU- 5 PRBC, 2 FF, 1 Platelet. CODE: FULL Allergies Allergy/AdvReac Type Severity Reaction Status Date / Time shellfish derived Allergy Mild Hives Verified 02/28/24 08:05 morphine AdvReac Mild paranoia Verified 02/28/24 08:05 Home Medications Medication Instructions Recorded Confirmed Type cetirizine 10 mg capsule (Zyrtec) 10 mg PO DAILY PRN Allergy Symptoms 10/13/22 02/28/24 History prenat.vits,hollie,vtm-gcwo-huzpa 1 tab PO QAM 10/13/22 02/28/24 History venlafaxine 150 mg 300 mg PO DAILY 11/16/23 02/28/24 History capsule,extended release 24 hr quetiapine 25 mg tablet 25 mg PO QPM 02/18/24 02/28/24 History bupropion HCl 100 mg tablet 100 mg PO QAM 02/26/24 02/28/24 History folic acid 1 mg tablet 1 mg PO QAM 02/26/24 02/28/24 History Patient History Medical History History of uterine fibroid Bruxism Anxiety and depression History of febrile seizure During childhood- only one episode- no further issues since that time Iron deficiency hx iron infusions within last year History of menorrhagia Surgical History History of hysteroscopy for cervical polps S/P dilation and curettage History of wisdom tooth extraction Family History Grandfather (Maternal) Alcohol abuse Father Anxiety with depression Dyslipidemia Hypertension Diabetes Mother Anxiety with depression Anemia Uterine neoplasm, Onset Age: 38 Malignant melanoma of skin Pulmonary embolism Grandmother (Paternal) Osteoporosis Sister History of ovarian cyst Uncle Diabetes uncle Denies family history of Ovarian cancer Breast cancer Colorectal cancer Social History Smoking Status: Never smoker Second Hand Exposure: No; Do You Dip or Chew Tobacco: No; Tobacco Cessation Education Requested by Patient: No Hx Alcohol Use: No Hx Substance Use: No Preferred Language: Bahraini Communication Ability: Effective Assistant To The Ceo Required: No Beliefs That Will Affect Care: None marital status: marital status details: Salinas Ames(49) [phone] Current Living Situation: Spouse Current Living Situation Comment: Lives with , SHUN occasionally and 1 dog current occupational status: employed current occupation: [employer] Other Information That Helps Us Care for You: No Feels Safe at Home: Yes Safety Concerns: Feels Safe At This Time Gender Identity: Female Assistive Devices: None Review of Systems Review of Systems: REVIEW OF SYSTEMS: Constitutional: No fever, sweats or chills Eyes: No diplopia, no worsening or blurred vision ENT: normal hearing, no trouble swallowing Respiratory: No cough, sputum, dyspnea at rest or on exertion Cardiovascular: No chest pain, tightness or palpitations Abdomen: (+)pain, NO nausea, vomiting, diarrhea or constipation Musculoskeletal: No joint pain, calf pain, swelling Neurologic: No weakness, numbness/tingling, or balance problems Psychiatric: No anxiety or depression Skin: No rash or itch Physical Exam Physical Exam: PHYSICAL EXAM: General: awake, alert, no apparent distress Head: Normocephalic, atraumatic ENT: PERRL, EOMI, no pharyngeal exudate, mucous membranes moist Neuro: AAO x 3, speech clear and appropriate, strength intact bilaterally 5/5, sensation intact and equal all extremities and dermatomes, Chest: equal rise and fall of the chest, no accessory muscle use, no heaves or thrills, Clear to auscultation, on room air, Cardiac: Regular rate and rhythm, telemetry reviewed- NSR no ectopy, skin warm dry, cap refill <3 seconds, peripheral pulses +2 no JVD, no murmur, no edema GI: NABS x 4 quadrants, soft, tender to palpation around incision, midline dressing intact with no strike through, SHIVAM drain to bulb suction with serous sang drainage : Parada draining perez colored urine, Skin: no rash or erythema Results & Data Results & Data Vital Signs (Past 12 Hours) Vital Signs Temp Pulse Pulse Resp BP BP Pulse Ox 03/02/24 03:25 36.4 C L 59 L 15 106/58 L 100 03/02/24 03:20 36.4 C L 58 L 18 105/57 L 100 03/02/24 03:10 67 14 102/49 L 100 06/23/24 03:00 58 L 18 105/51 L 100 03/02/24 02:50 36.0 C L 70 15 95/49 L 100 03/02/24 00:48 73 16 100 03/02/24 00:32 98/71 L 03/02/24 00:21 87 18 03/02/24 00:20 67/55 L 03/02/24 00:18 85 20 100 03/02/24 00:12 93 H 17 93 03/02/24 00:07 107/64 03/02/24 00:06 84 16 100 03/02/24 00:05 100/61 03/01/24 23:56 82/71 L 03/01/24 23:54 93 H 03/01/24 23:28 100 03/01/24 23:27 84 18 102/61 99 03/01/24 23:27 98 H 18 100 O2 Del Method O2 Flow Rate 03/02/24 03:25 Room Air 0 03/02/24 03:20 Room Air 0 03/02/24 03:10 Oxymask 4 03/02/24 03:00 Oxymask 4 03/02/24 02:50 Oxymask 8 03/02/24 00:48 03/02/24 00:32 03/02/24 00:21 03/02/24 00:20 03/02/24 00:18 03/02/24 00:12 03/02/24 00:07 03/02/24 00:06 03/02/24 00:05 03/01/24 23:56 03/01/24 23:54 03/01/24 23:28 Room Air 03/01/24 23:27 Room Air 03/01/24 23:27 Room Air Laboratory Results Abnormal lab results 03/01/24 03/02/24 03/02/24 Range/Units 23:33 00:43 00:45 WBC 13.85 H (4.8-10.8) K/ul RBC 3.77 L (4.20-5.40) M/uL Hct 35.0 L (37.0-47.0) % Neut # (Auto) 8.59 H (1.40-6.50) K/uL Lymph # (Auto) 3.99 H (1.20-3.40) K/uL [place] # (Auto) 0.89 H (0.11-0.59) K/uL PT 14.0 H (9.0-12.0) Seconds INR 1.3 H (0.9-1.1) Fibrinogen 111 L (184-400) mg/dl Potassium 2.9 L (3.5-5.1) mmol/L Carbon Dioxide 19 L (21-32) mmol/L Anion Gap 14 H (3-11) Glucose 178 H (70-99(Fasting)) mg/dl Lactate 4.9 H* (0.4-2.0) mmol/L Globulin 2.4 L (2.5-4.0) gm/dl TSH 12.668 H (0.300-4.500) uIu/ml Ur Specific [place] > 1.045 H (1.000-1.030) Urine Protein Trace H (Negative) Urine RBC (Auto) 3-5 H (0-2) /hpf U Epithel Cells (Auto) 3-5 H (0-2) /hpf Crossmatch See Detail Diagnostic Findings Abdomen/Pelvis CT 03/01/24 23:27 CR Exam(s): CT ABDOMEN + PELVIS With Contrast IV Amt: 119 ml opti 320 EXAM: CT Abdomen and Pelvis With Intravenous Contrast CLINICAL HISTORY: Reason for exam: severe pain, syncope. TECHNIQUE: Axial computed tomography images of the abdomen and pelvis with intravenous contrast. CTDI is 14.94 mGy and DLP is 1212.34 mGy-cm. Automated exposure control was utilized for the study. A dose lowering technique was utilized adhering to the principles of ALARA. CONTRAST: Patient received 119 ml opti 320 of IV contrast COMPARISON: None. FINDINGS: Lung bases: Unremarkable. No mass. No consolidation. ABDOMEN: Liver: High density fluid surrounding the liver and spleen tracing into the left paracolic bladder with heterogeneous pattern along the left abdomen consistent with hemorrhagic fluid. There is active bleed along the left paracolic gutter exact origin indeterminate and possibly originating at the left adnexa. Gallbladder and bile ducts: Unremarkable. No calcified stones. No ductal dilation. Pancreas: Unremarkable. No mass. No ductal dilation. Spleen: See above. Adrenals: Unremarkable. No mass. Kidneys and ureters: Unremarkable. No solid mass. No hydronephrosis. Stomach and bowel: Unremarkable. No obstruction. No mucosal thickening. PELVIS: Appendix: No findings to suggest acute appendicitis. Bladder: See above. Reproductive: See above. ABDOMEN and PELVIS: Intraperitoneal space: There is anteverted uterus with nonspecific heterogeneous enlargement of the endometrium versus endometrial mass. There is a largely enhancing density within the right adnexa measuring 5. 0 x 4.5 cm. There is a Low-sodium cyst within the right adnexa measuring 2 cm. There is large amount of free fluid with heterogeneous high density concerning for hemorrhagic fluid within the pelvis including bilateral adnexal regions. No free air. Bones/joints: No acute fracture. No dislocation. Soft tissues: Unremarkable. Vasculature: Unremarkable. No abdominal aortic aneurysm. Lymph nodes: Unremarkable. No enlarged lymph nodes. IMPRESSION: Large free intraperitoneal abdominal and pelvic fluid with high density highly compatible with hemorrhagic fluid and significant amount of active bleed on the left. This originates at the level of the left adnexa. There is heterogeneous enlargement of the endometrium with masslike density. Careful correlation with patient's hCG measurements. If patient is positive hCG, findings could represent ruptured ectopic with active bleed. Given the likely origin of the bleeding related to the left adnexa, differential diagnosis includes AV malformation given intense enhancement of the bilateral ovaries, right than left, adnexal mass with ovarian torsion excluded. Recommend follow- up with FIELD INSTALLATION TECHNICIAN consultation, characterization ultrasound and hCG measurements. Communications: Call Doctor Other Electronically signed by: Mikaela Plaza MD 03/02/24 00:24 AM Chest CTA 03/01/24 23:27 Exam(s): CTA CHEST IV Amt: 119 ml opti 320 EXAM: CT Angiography Chest With Intravenous Contrast CLINICAL HISTORY: Reason for exam: PE. TECHNIQUE: Axial computed tomographic angiography images of the chest with intravenous contrast. CTDI is 14.94 mGy and DLP is 1212.34 mGy-cm. Automated exposure control was utilized for the study. A dose lowering technique was utilized adhering to the principles of ALARA. MIP reconstructed images were created and reviewed. COMPARISON: None. FINDINGS: Pulmonary arteries: Unremarkable. No pulmonary embolism. Normal enhancement of the pulmonary arteries. Aorta: No acute findings. Normal aorta and no dissection or aneurysm. Lungs: There is an ovoid, left apical medial subpleural mass measuring 4.2 x 3.1 cm with heterogeneous enhancement concerning for neoplasm. No consolidation. Pleural space: Unremarkable. No significant effusion. No pneumothorax. Heart: Unremarkable. No cardiomegaly. No significant pericardial effusion. No evidence of RV dysfunction. Bones/joints: No acute fracture. No dislocation. Soft tissues: Unremarkable. Lymph nodes: Unremarkable. No enlarged lymph nodes. Intraperitoneal space: Abdomen reveals moderate to large ascites with high density concerning for hemorrhagic component. IMPRESSION: 1. No pulmonary embolus or dissection. 2. No acute cardiopulmonary disease. 3. High density ascites in the upper abdomen concerning for hemorrhagic component, please see accompanying CT of the abdomen and pelvis report. 4. Left apical subpleural mass with heterogeneous enhancement concerning for neoplasm, clinical correlation recommended. If indicated, further characterization recommended with PET scan evaluation to evaluate benign versus malignant process. Electronically signed by: Mikaela Plaza MD 03/02/24 00:19 AM Obstetrics Ultrasound 03/02/24 00:00 Exam(s): US OB LIMITED EXAM: US , Limited CLINICAL HISTORY: Reason for exam: bleeding/pain,. TECHNIQUE: Real-time limited ultrasound of the maternal uterus with image documentation. COMPARISON: 02/25/2024. FINDINGS: Uterus: The uterus measures 11.2 x 6.5 cm. There is a round heterogeneous structure within the lower uterine segment suggestive of uterine fibroid measuring 8.9 x 4.3 x 3.9 cm. Adnexa: Bilateral ovaries are not visualized. Free fluid: There is large amount of complex free fluid within the abdomen, likely hemorrhagic. Other findings: Diffuse heterogeneous enlargement of the endometrial stripe up to 28.7 mm. IMPRESSION: 1. Large amount of free fluid most compatible with hemorrhagic fluid given previous CT examination and previous exam. 2. Severe enlargement of the endometrium with diffuse heterogeneity and color-flow, combination of findings which may indicate large blood clots, endometrial hyperplasia, endometrial neoplasm. Patient has positive hCG levels, findings represent ectopic . By history, patient is currently on the way to the operating room. 3. Uterine fibroid measuring 4.3 cm in maximum dimension. 4. Nonvisualized bilateral ovaries. 5. These findings were described on the previous CT examination and urgently communicated to the physician per previous CT report. Electronically signed by: Mikaela Plaza MD 03/02/24 01:19 AM Coding Level of Care Code 03801 CRITICAL CARE 1ST 30-74M Diagnoses Hemorrhagic shock R57.8 Ruptured ectopic O00.90 Hemoperitoneum K66.1 Major depression, recurrent F33.9
--- NOTE | 2024-03-02 03:55 | Anesthesiology Progress Note ---
Date of Service March 02, 2024 Anesthesia Post Procedure Vital Signs Vital Signs: Temp Pulse Pulse Resp BP BP Pulse Ox 03/02/24 03:25 36.4 C L 59 L 15 106/58 L 100 03/02/24 03:20 36.4 C L 58 L 18 105/57 L 100 03/02/24 03:10 67 14 102/49 L 100 03/02/24 03:00 58 L 18 105/51 L 100 03/02/24 02:50 36.0 C L 70 15 95/49 L 100 03/02/24 00:48 73 16 100 03/02/24 00:32 98/71 L 03/02/24 00:21 87 18 03/02/24 00:20 67/55 L 03/02/24 00:18 85 20 100 03/02/24 00:12 93 H 17 93 03/02/24 00:07 107/64 03/02/24 00:06 84 16 100 03/02/24 00:05 100/61 03/01/24 23:56 82/71 L 03/01/24 23:54 93 H 03/01/24 23:28 100 03/01/24 23:27 84 18 102/61 99 03/01/24 23:27 98 H 18 100 O2 Del Method O2 Flow Rate 03/02/24 03:25 Room Air 0 03/02/24 03:20 Room Air 0 03/02/24 03:10 Oxymask 4 03/02/24 03:00 Oxymask 4 03/02/24 02:50 Oxymask 8 03/02/24 00:48 03/02/24 00:32 03/02/24 00:21 03/02/24 00:20 03/02/24 00:18 03/02/24 00:12 03/02/24 00:07 03/02/24 00:06 03/02/24 00:05 03/01/24 23:56 03/01/24 23:54 03/01/24 23:28 Room Air 03/01/24 23:27 Room Air 03/01/24 23:27 Room Air Pain Intensity Abdomen: Pain Intensity: 9 Transfer of Care Handoff Completed per policy Notes Mental Status: alert / awake / arousable and participated in evaluation Patient Amnestic to Procedure: Yes Nausea / Vomiting: adequately controlled Pain: adequately controlled Airway Patency, RR, SpO2: stable & adequate BP & HR: stable & adequate Hydration State: stable & adequate Anesthetic Complications: no major complications apparent Notes: Pt presented to ED w hemoperitoneum, hypovolemic shock. Had volume resuscitation, transfusion in ED. Tolerated GA without difficulty. Received 2500 cc crystalloid, 1 PRBC, 2FFP, platelets in OR. Reversed, extubated without difficulty. post-op labs pending.
[2024-03-02] MEDS: LACTATED RINGER'S 1,000 ML IV SCH (04:00)
[2024-03-02] MEDS: fentaNYL citrate PF 100 MCG/2 ML VIAL ONE (04:21)
[2024-03-02] MEDS: NOREPINEPHRINE/D5W 4 MG/250 ML IV ONE (04:22)
[2024-03-02 04:30] LABS: iSTAT Creatinine 0.8 mg/dl (0.6-1.3); iSTAT Hemoglobin 12.2 g/dl (12.0-16.0); iSTAT Ionized Calcium 1.15 mmol/l (1.12-1.32); iSTAT Potassium 2.6 mmol/L (3.3-5.0)
--- NOTE | 2024-03-02 04:34 | Communication Note ---
Date of Service: March 02 met with family, sister, mom and spouse immediately after surgery and twice since pt has been moved to ICU. Surgery findings reviewed. Explained there was alot of bleeding and active bleeding at left blood supply to ovary where needed to excise the ovary as well as the fallopian tube where appeared as ruptured ectopic. explained how tissues were swollen and easily tore and could lead to more bleeding and oozing. explained that visualization was difficult and small but possible chance of injury, particularly on left side, no apparent bowel issues but could not see coursing ureter that i would usually like to see when taking out ovary. also explained that i did not want to do D&E because i felt like her uterine lining was not likely molar, that this was an ectopic and so did not want to do more harm by instrumenting the uterus especially with her boggy and edematous tissue, which seemed to bleed easily. [place] it was best to see if now that abnl removed, she just shed the lining with time as heavy period. follow hcg's etc. explained sx associated with injury of ureter. they verbalized understanding and were thankful she was doing ok. After I met with pt in ICU first time, she was communicating and I told her what occurred at surgery and that I felt the problem area was removed. I did let family know after I visited patient in ICU first time that she was doing ok, stable vitals and nursing would get them to see her after she finished pacu recovery. I did not see labs reported and so went down to see patient again. She was sitting more upright and smiling, she told me she had no pain. Explained that drain was present and what I was looking for, prob put out 1500cc so far, urine output was 75cc in 30min and vss. I told her I felt that the drain was putting out blood that had already been in her abdomen and not evidence of active bleeding, but trending labs would also help. The lab was in there just getting pt labs drawn and so still pending now. She verbalized understanding. Went back out to give update to family. They had no further ?s. They expressed appreciation for her care. Of note, I spoke to sister who was babysitting in same neighborhood as pt and she texted her at 1026pm that she was in pain and around same time had texted her mom that she was having pain and had bm but that didn't seem to help. Sister said that after they were both done babysitting she picked up the patient and they decided to come to ER due to pain. So it was quite quick that her pain developed and she was in ER,evaluated etc.
[2024-03-02] MEDS: DOXYCYCLINE HYCLATE 100 MG in DEXTROSE 5% MINI-B 100 ML IV STA (04:39)
[2024-03-02] MEDS: CALCIUM GLUCONATE 1,000 MG/60 ML BAG IV STA (04:40)
[2024-03-02] MEDS: FAMOTIDINE 20MG IV PUSH 20 MG/5 ML SYR IV STA (04:40)
[2024-03-02] MEDS: PANTOprazole 40 MG in SYRINGE 0 ML IV ONE (04:40)
[2024-03-02] MEDS: LACTATED RINGER'S 1,000 ML IV ONE (04:40)
[2024-03-02 04:48] LABS: Calcium 8.2 mg/dl (8.6-10.3); Creatinine Clr Calc Pharmacy 112.5 ml/min; Est GFR (African American) 133.3 ml/min; Magnesium 1.6 mg/dl (1.7-2.4); Phosphorus 3.7 mg/dl (2.5-4.9); Potassium 3.8 mmol/L (3.5-5.1)
[2024-03-02 04:55] LABS: Fibrinogen 183 mg/dl (184-400); INR 1.1 (0.9-1.1); Partial Thromboplastin Ratio 0.9; Partial Thromboplastin Time 24 Seconds (21-31); Prothrombin Time 12.2 Seconds (9.0-12.0)
[2024-03-02] MEDS: SODIUM CHLORIDE 0.9% 1,000 ML IV SCH (04:55)
[2024-03-02] MEDS: HYDROmorphone PCA 30 MG/30 ML IV PRN (04:56)
[2024-03-02] MEDS: ICU ELECTROLYTE REPLACEMENT PROTOCOL SCH (05:23)
[2024-03-02 05:30] LABS: Basophils # (auto) 0.02 K/uL (0.00-0.20); Basophils % (auto) 0.1 %; Hematocrit (blood only) 30.3 % (37.0-47.0); Hemoglobin 10.2 g/dl (12.0-16.0); Immature Granulocytes # (auto) 0.07 K/uL (0.01-0.20); Immature Granulocytes % (auto) 0.4 %; Lymphocytes # (auto) 0.66 K/uL (1.20-3.40); Lymphocytes % (auto) 3.9 %; Mean Corpuscular Hgb Conc 33.7 g/dL (32.0-36.0); Mean Corpuscular Volume 92.1 fL (80.0-100.0); Mean Platelet Volume 11.9 fL (9.4-12.4); Monocytes # (auto) 1.07 K/uL (0.11-0.59); Monocytes % (auto) 6.3 %; Neutrophils # (auto) 15.08 K/uL (1.40-6.50); Neutrophils % (auto) 89.3 %; Platelet Count 157 K/uL (130-400); RDW Coefficient of Variation 14.9 % (11.5-14.5); RDW Standard Deviation 50.1 fL (36.4-46.3); Red Blood Count 3.29 M/uL (4.20-5.40)
[2024-03-02] MEDS: MAGNESIUM SULFATE / D5W 1 GM/100 ML BAG IV SCH (05:39)
[2024-03-02] MEDS: POTASSIUM CHLORIDE / WTR 10 MEQ/100 ML PLCT IV SCH (05:39)
[2024-03-02 06:40] LABS: Adenovirus PCR Not Detected (NotDetected); Bordetella parapertussis PCR Not Detected (NotDetected); Bordetella pertussis PCR Not Detected (NotDetected); Chlamydia pneumoniae PCR Not Detected (NotDetected); Coronavirus 229E PCR Not Detected (NotDetected); Coronavirus CoV-2 (COVID19)PCR Not Detected (NotDetected); Coronavirus HKU1 PCR Not Detected (NotDetected); Coronavirus NL63 PCR Not Detected (NotDetected); Coronavirus OC43PCR Not Detected (NotDetected); Human Metapneumovirus PCR Not Detected (NotDetected); Influenza A PCR Not Detected (NotDetected); Influenza B PCR Not Detected (NotDetected); Mycoplasma pneumoniae PCR Not Detected (NotDetected); Parainfluenza Virus 1 PCR Not Detected (NotDetected); Parainfluenza Virus 2 PCR Not Detected (NotDetected); Parainfluenza Virus 3 PCR Not Detected (NotDetected); Parainfluenza Virus 4 PCR Not Detected (NotDetected); Respiratory Syncytial VirusPCR Not Detected (NotDetected); Rhinovirus/Enterovirus PCR Not Detected (NotDetected)
[2024-03-02 08:12] LABS: Hematocrit (blood only) 28.3 % (37.0-47.0); Hemoglobin 9.7 g/dl (12.0-16.0)
[2024-03-02] MEDS: HYDROmorphone INJ 0.5 MG/0.5 ML SYR IV STA (09:20)
--- NOTE | 2024-03-02 09:28 | Gynecologic Progress Note ---
Date of Service March 02, 2024 Assessment & Plan (1) Post-operative state: (2) Ruptured ectopic : (3) Hemorrhagic shock: (4) Hemoperitoneum: Plan stable this am. hgbs noted. vss. pleased with her recovery thus far, with urine output as well do not have concern for ongoing bleeding. SHAJI drainage has slowed but suspect when upright may see more, will follow. plan recheck hgb 2pm. allow crackers with her meds and will advance diet after labs return. will plan dc parada and try po meds later this afternoon if remains stable. discussed details of surgery and recovery, notes currently on [facility] for care at this time. 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 Admission and Anticipated Discharge Date Admission Date: March 02, 2024 Subjective pt doing ok this am. notes no n/v. no cp/sob, but does have right sided pain with deep inspiration. not hungry. having some pain and does note data mining analyst dilaudid is helping. Review of Systems Constitutional: as per Subjective / HPI Physical Exam Constitutional: WD/WN, vitals as above Respiratory: normal respiratory effort, lungs clear to auscultation Cardiovascular: Rate/Rhythm: regular rate and regular rhythm Gastrointestinal (Abdomen): Inspection/Auscultation: normal bowel sounds and + abdominal surgical incision (dressing in place, small amount of drainage noted at lower edge) Percussion/Palpation: + abdomen tender (with deep palpation) and abdomen soft; no guarding SHAJI drain in place Results & Data Vital Signs (Past 12 Hours) Vital Signs Temp Pulse Pulse Resp BP BP Pulse Ox 03/02/24 07:47 68 03/02/24 07:39 69 23 100 03/02/24 07:39 107/68 03/02/24 07:33 72 20 100 03/02/24 07:00 67 21 110/62 99 03/02/24 06:39 65 21 110/66 100 03/02/24 06:00 63 22 113/64 100 03/02/24 05:48 68 20 103/58 L 100 03/02/24 05:03 68 21 111/64 100 03/02/24 04:30 65 22 109/60 100 03/02/24 04:16 97.5 F L 61 16 106/51 L 95 03/02/24 04:09 97.5 F L 67 19 106/67 99 03/02/24 03:25 97.5 F L 59 L 15 106/58 L 100 03/02/24 03:20 97.5 F L 58 L 18 105/57 L 100 03/02/24 03:10 67 14 102/49 L 100 03/02/24 03:00 58 L 18 105/51 L 100 03/02/24 02:50 96.8 F L 70 15 95/49 L 100 03/02/24 00:48 73 16 100 03/02/24 00:32 98/71 L 03/02/24 00:21 87 18 03/02/24 00:20 67/55 L 03/02/24 00:18 85 20 100 03/02/24 00:12 93 H 17 93 03/02/24 00:07 107/64 03/02/24 00:06 84 16 100 03/02/24 00:05 100/61 03/01/24 23:56 82/71 L 03/01/24 23:54 93 H 03/01/24 23:28 100 03/01/24 23:27 84 18 102/61 99 03/01/24 23:27 98 H 18 100 O2 Del Method O2 Flow Rate 03/02/24 07:47 03/02/24 07:39 Room Air 03/02/24 07:39 03/02/24 07:33 Room Air 03/02/24 07:00 Room Air 03/02/24 06:39 Room Air 03/02/24 06:00 Room Air 03/02/24 05:48 Room Air 03/02/24 05:03 Room Air 03/02/24 04:30 Room Air 03/02/24 04:16 Room Air 03/02/24 04:09 Room Air 03/02/24 03:25 Room Air 0 03/02/24 03:20 Room Air 0 03/02/24 03:10 Oxymask 4 03/02/24 03:00 Oxymask 4 03/02/24 02:50 Oxymask 8 03/02/24 00:48 03/02/24 00:32 03/02/24 00:21 03/02/24 00:20 03/02/24 00:18 03/02/24 00:12 03/02/24 00:07 03/02/24 00:06 03/02/24 00:05 03/01/24 23:56 03/01/24 23:54 03/01/24 23:28 Room Air 03/01/24 23:27 Room Air 03/01/24 23:27 Room Air PG Care Time/CCT Total # of Minutes Spent Total Time Spent with Patient: Total time spent is greater than 50% in coordination of care (as documented) at patient's floor/unit and/or counseling patient: Coding Level of Care Code None Diagnoses Post-operative state Z98.890 Ruptured ectopic O00.90 Hemorrhagic shock R57.8 Hemoperitoneum K66.1
[2024-03-02] MEDS: VENLAFAXINE HCL XR 150 MG CAPXR PO SCH (12:47)
[2024-03-02] MEDS: buPROPion HCl 100 MG TABLET PO SCH (12:47)
[2024-03-02 15:05] LABS: Hemoglobin 9.6 g/dl (12.0-16.0)
[2024-03-02 15:10] LABS: BUN Creatinine Ratio 12.5 (10-20); Calcium 7.8 mg/dl (8.6-10.3); Creatinine Clr Calc Pharmacy 132.5 ml/min; Est GFR (African American) 137.1 ml/min; Est GFR (Non-African American) 118.3 ml/min; Potassium 4.4 mmol/L (3.5-5.1)
[2024-03-02] MEDS: CETIRIZINE HCL 10 MG TABLET PO PRN (15:48)
[2024-03-02] MEDS ORDERED: ACETAMINOPHEN 325 MG TAB PO PRN (15:53)
[2024-03-02] MEDS: oxyCODONE/ACETAMINOPHEN 5mg/325mg TAB PO PRN ×2 (17:40→21:11)
[2024-03-02] MEDS: IBUPROFEN 600 MG TAB PO PRN (17:40)
--- NOTE | 2024-03-02 20:59 | Communication Note ---
Date of Service: March 02, 2024 stopped in to see pt, sitting upright with spouse and mother at bedside. looks well. says she just voided. only has been up twice, first time a little dizzy. she notes vb has started. discussed again findings at surgery. informed by nursing that CTA showed lung mass. 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 either way it does need outpt f/u with pcp who is Diann Link at [facility]. 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 We will see what her quants do, ordered for am, and trend them to negative. They are asking about likelihood of ectopic being missed by u/s, and I did admit this is unusual but that her scenario was strange, not only u/s findings of uterus, but level of hcg that typically would not develop with ectopic. Her picture was confusing and she and family verbalized understanding. I am also as of yet unsure that her uterus will completely evacuate with spont bleeding and so may require more surgery, all still somewhat unclear and pathology not returned yet either. So still some clinical things to sort out but clearly patient improved now overall. Has eaten regular diet, just voided. Pain mgmt ok so far with po meds. Will plan to remove SHAJI drain in am, if output remains low as it has been in last several hours. CBC bmp and quant in am. Denies any needs for now. Family wanting to know team involved in ER and to express their thanks and will direct them to patient excellence team for that. Our team will contact pcp tomorrow about outpt f/u of CTA findings. Reviewed some of coming restrictions for pt and she will have paperwork from her employer for us to fill out which can be dropped off at office. Plan 2wk followup at least, they are agreeable.
[2024-03-02] MEDS: QUEtiapine FUMARATE 25 MG TABLET PO SCH (21:11)
[2024-03-03 06:42] LABS: Hematocrit (blood only) 20.4 % (37.0-47.0); Hemoglobin 7.1 g/dl (12.0-16.0); Mean Corpuscular Hemoglobin 31.6 pg (25.0-34.0); Mean Corpuscular Hgb Conc 34.8 g/dL (32.0-36.0); Mean Corpuscular Volume 90.7 fL (80.0-100.0); Mean Platelet Volume 11.7 fL (9.4-12.4); Platelet Count 127 K/uL (130-400); RDW Coefficient of Variation 15.4 % (11.5-14.5); RDW Standard Deviation 50.7 fL (36.4-46.3); Red Blood Count 2.25 M/uL (4.20-5.40); White Blood Count 8.88 K/ul (4.8-10.8)
[2024-03-03 06:47] LABS: BUN Creatinine Ratio 12.3 (10-20); Calcium 7.2 mg/dl (8.6-10.3); Creatinine Clr Calc Pharmacy 114.1 ml/min; Est GFR (African American) 130.5 ml/min; Est GFR (Non-African American) 112.6 ml/min; Potassium 3.6 mmol/L (3.5-5.1)
[2024-03-03] MEDS ORDERED: CALCIUM GLUCONATE 1,000 MG/60 ML BAG IV STA (07:13)
--- NOTE | 2024-03-03 08:25 | Gynecologic Progress Note ---
Date of Service March 03, 2024 Assessment & Plan (1) Post-operative state: (2) Hemorrhagic shock: (3) Ruptured ectopic : (4) Hemoperitoneum: Plan stable, doing well. hgb now 7.1 but suspect not related to ongoing bleeding. will monitor vs and her exam. she may be able to tolerate and build back with fe po vs. can accept more PRBCs. she will see how ambulating today goes. she is voiding well, good volume and eating. discussed out pt limitations and fe bid with colace. checked on papdmp and no issues, discussed use of pain meds postop. have made appt plan for next at 1145am with me and rec she get quant drawn next sunday. order placed. today hcg 5000 and with ongoing bleeding, suggests only ectopic (no molar preg, concomitantly). pt aware will watch those labs wkly to negative. she plans to drop off paperwork to our surgery nurse for her leave. will see how her progress is today to determine disposition. Admission and Anticipated Discharge Date Admission Date: March 02, 2024 Subjective pt feels ok this am. some pain in ribs , anahi with deep breaths. was dizzy more yesterday with going to void but this am about 430am went to [facility] and not dizzy. no cp. no n/v. eating regular diet. tender on abdomen but pain medicine helps. nothing like what brought her to ER. Review of Systems Constitutional: as per Subjective / HPI Physical Exam Constitutional: WD/WN, vitals as above Respiratory: normal respiratory effort, lungs clear to auscultation Cardiovascular: Rate/Rhythm: regular rate and regular rhythm Gastrointestinal (Abdomen): Inspection/Auscultation: normal bowel sounds and + abdominal surgical incision (c/d/i) Percussion/Palpation: + abdomen tender (with deep palpation) and abdomen soft; no guarding SHAJI drain removed. Musculoskeletal: nt calves. Neurologic: grossly normal Psychiatric: A+Ox3, euthymic affect Results & Data Vital Signs (Past 12 Hours) Vital Signs Temp Pulse Resp BP Pulse Ox O2 Del Method 03/03/24 04:15 98.6 F 82 20 99/61 L 99 Room Air 03/03/24 00:15 98.6 F 82 20 99/59 L 99 Room Air 03/02/24 20:55 98.4 F 86 20 102/64 100 Room Air PG Care Time/CCT Total # of Minutes Spent Total Time Spent with Patient: Total time spent is greater than 50% in coordination of care (as documented) at patient's floor/unit and/or counseling patient: Coding Level of Care Code 73635 Post Operative Follow-Up Diagnoses Post-operative state Z98.890 Hemorrhagic shock R57.8 Ruptured ectopic O00.90 Hemoperitoneum K66.1
[2024-03-03] MEDS ORDERED: SODIUM CHLORIDE 0.9% 250 ML IV PRN (12:04)
--- NOTE | 2024-03-03 12:39 | Communication Note ---
Date of Service: March 03, 2024 Met with patient this am and also after she ambulated the halls w/ nursing available if need. Mom and sister at bedside on second visit. Tolerated the laps around unit without lightheadedness/dizziness. When she stood up to bathroom earlier this morning, felt a little lightheaded but went straight from sitting to walking immediately, she took a second to sit at bedside before ambulating for the laps around unit. Feels like has some heaviness in legs, no pain/erythema so suspect fatigue related. Discussed option for additional unit before dc as noted by prior provider to see if will help as well and pt amenable. Will transfuse and see how she feels after.
[2024-03-03 13:14] VITALS: TEMP 98.4
[2024-03-03 13:43] VITALS: RESP 16
[2024-03-03 14:15] VITALS: O2SAT 100
--- NOTE | 2024-03-03 15:57 | Gynecologic Progress Note ---
Date of Service March 03, 2024 Assessment & Plan (1) Post-operative state: Plan: Feeling well and desires to go home. Rx for percocet sent to [facility] to chart picker, has f/u scheduled/arranged already. She got a call from pcp's office so will discuss with them if any further imaging needed before she sees them Admission and Anticipated Discharge Date Admission Date: March 02, 2024 Subjective Resting comfortably in bed, received 1 additional unit this afternoon and ambulated around the unit without difficulty. Denies lightheadedness, dizziness Results & Data Vital Signs (Past 12 Hours) Vital Signs Temp Pulse Pulse Resp BP BP Pulse Ox 03/03/24 14:10 98.4 F 91 H 16 104/66 100 03/03/24 13:40 98.4 F 104 H 16 116/71 99 03/03/24 13:10 98.4 F 101 H 18 116/72 100 03/03/24 12:55 97.5 F L 99 H 16 109/66 100 03/03/24 12:36 98.4 F 100 H 17 116/70 100 03/03/24 11:20 97.9 F 96 H 18 114/69 100 03/03/24 07:50 03/03/24 07:50 98.6 F 89 16 105/62 100 03/03/24 04:15 98.6 F 82 20 99/61 L 99 O2 Del Method 03/03/24 14:10 03/03/24 13:40 03/03/24 13:10 03/03/24 12:55 03/03/24 12:36 03/03/24 11:20 Room Air 03/03/24 07:50 Room Air 03/03/24 07:50 Room Air 03/03/24 04:15 Room Air PG Care Time/CCT Total # of Minutes Spent Total Time Spent with Patient: Total time spent is greater than 50% in coordination of care (as documented) at patient's floor/unit and/or counseling patient: Coding Level of Care Code None Diagnoses Post-operative state Z98.890
[2024-03-03 16:01] VITALS: BP 107/65; PULSE 76
[2024-03-03] MEDS ORDERED: CALCIUM CHLORIDE 10% 10 ML SYR IV ONE (16:29)
--- NOTE | 2024-03-03 20:32 | Discharge Summary ---
Date of Service Date of admission: March 02, 2024 Date of discharge: March 03, 2024 Admission HPI Per Admitting Provider 38yo with cc of severe pain, syncope in background of early presented to ER. Patient was thought to have a molar with planned D&E for sundayMarch 03, when upon presentation to ER was quickly diagnosed with hemoperitoneum, hemorrhagic shock. She was resuscitated in ER with massive transfusion and ivf, requiring one dose of epinephrine for severe hypotension and taken to OR as soon as it was readied for evaluation and management, suspecting ruptured ectopic . Discharge Data Procedures Performed Operation Date: 03/02/24 00:30 Actual Procedures p Exploratory Laparotomy, Left Salpingo-oophorectomy with Management of Ectopic , Evacuation of Hemoperitoneum(Not Applicable) - Constance Field MD, [facility] Hospital Course (1) Post-operative state: (2) Hemorrhagic shock: (3) Ruptured ectopic : (4) Hemoperitoneum: Plan Patient underwent above stated procedures and over the course of her time in ER and OR given 5u PRBCs, 2u FFP and one dose pack platelets. Her postop recovery was eventful for some persistent dizziness with ambulation on postop day #1 for which additional unit of PRBCs given. Symptoms improved. Her hemoglobin had trended down to 7.1 prior to this additional unit. Her postop hcg was down from about 40,000 to 5,000 and she had begun expected vaginal bleeding. She had a SHAJI drain placed intraop whose output trended down and was also removed on postop day #1. On that day she was eating, voiding, ambulating and had good pain control with oral pain meds. She had percocet sent to pharmacy and had plan for repeat hcg in one week with office visit on following day, 03/11/[address]. Coding Level of Care Code None Diagnoses Post-operative state Z98.890 Hemorrhagic shock R57.8 Ruptured ectopic O00.90 Hemoperitoneum K66.1
== END 2024-03-03 16:30 | disposition home or self-care (01) | DRG 817 ==
LOC: ED 23:20 → OR 03-02 01:03 → 1E 03-02 02:54 → 4E2 03-02 17:24